=== PATIENT | female | born 1940 | race Caucasian/White ===

== ENCOUNTER → 2019-11-25 10:04 | Outpatient (BNVA) | payer MEDICARE, MEDICAID, SELFPAY | PROVIDERS: Visit Provider Registered Nurse | DX: I10 Essential (primary) hypertension (principal); E11.9 Type 2 diabetes mellitus without complications; H81.10 Benign paroxysmal vertigo, unspecified ear; E78.5 Hyperlipidemia, unspecified; H81.11 Benign paroxysmal vertigo, right ear | CPT/HCPCS: 80053; 80061; 83036; 85025 ==

== ENCOUNTER → 2020-05-25 10:36 | Outpatient (BNVA) | payer MEDICARE, MEDICAID, SELFPAY | PROVIDERS: Visit Provider Registered Nurse | DX: E11.9 Type 2 diabetes mellitus without complications (principal); I10 Essential (primary) hypertension; J30.2 Other seasonal allergic rhinitis | CPT/HCPCS: 80053; 83036 ==

== ENCOUNTER → 2020-09-05 10:15 | Outpatient (BNVA) | payer MEDICARE, MEDICAID, SELFPAY | PROVIDERS: Visit Provider Registered Nurse | DX: E11.9 Type 2 diabetes mellitus without complications (principal); I10 Essential (primary) hypertension | CPT/HCPCS: 80053; 83036 ==

== ENCOUNTER → 2020-12-05 10:30 | Outpatient (BNVA) | payer MEDICARE, SELFPAY | PROVIDERS: Visit Provider Registered Nurse | DX: E11.9 Type 2 diabetes mellitus without complications (principal); I10 Essential (primary) hypertension | CPT/HCPCS: 80053; 83036 ==

== ENCOUNTER → 2021-03-13 11:19 | Outpatient (BNVA) | payer MEDICARE, SELFPAY | PROVIDERS: Visit Provider Registered Nurse | DX: I10 Essential (primary) hypertension (principal); E11.9 Type 2 diabetes mellitus without complications; E78.5 Hyperlipidemia, unspecified | CPT/HCPCS: 83036 ==

== ENCOUNTER → 2022-02-26 11:01 | Outpatient (BNVA) | payer MEDICARE, SELFPAY | PROVIDERS: PCP Registered Nurse; Visit Provider Registered Nurse | DX: I10 Essential (primary) hypertension (principal); E11.9 Type 2 diabetes mellitus without complications; R46.89 Other symptoms and signs involving appearance and behavior | CPT/HCPCS: 80053; 80061; 83036; 85025 ==

== ENCOUNTER → 2022-08-27 11:14 | Outpatient (BNVA) | payer MEDICARE, SELFPAY | PROVIDERS: PCP Registered Nurse; Visit Provider Registered Nurse | DX: E11.9 Type 2 diabetes mellitus without complications (principal); I10 Essential (primary) hypertension | CPT/HCPCS: 80053; 83036 ==

== ENCOUNTER 2023-08-22 12:15 | Inpatient (IN) | payer MEDICARE, MEDICAID, SELFPAY ==
[2023-08-22] VITALS (62 sets, daily range): BP systolic 77–160; BP diastolic 54–74; PULSE 96–157; RESP 14–27; TEMP 37.4–37.9; O2SAT 86–99; BMI 15.9
--- NOTE | 2023-08-22 12:24 | XRR_ITS ---
PROCEDURE INFORMATION: Exam: XR Chest Exam date and time: 08/22/2023 1:31 PM Age: 82 years old Clinical indication: Cough and dyspnea; Additional info: Dyspnea/cough TECHNIQUE: Imaging protocol: Radiologic exam of the chest. Views: 1 view. COMPARISON: No relevant prior studies available. FINDINGS: Tubes, catheters and devices: Endotracheal tube approximately 5 cm above the juan. Enteric tube courses below the diaphragm in the expected region of the mid gastric body. Right-sided central line tip projects over the distal SVC/cavoatrial junction. Lungs: 6 mm irregular left basilar nodular opacity. No focal consolidation elsewhere in the lungs. Pleural spaces: No pleural effusion. No pneumothorax. Heart/Mediastinum: No cardiomegaly. Bones/joints: No acute findings. XR/XR chest 1V portable [id number] IMPRESSION: 6 mm irregular left lower lobe nodule. Nonemergent CT recommended for further characterization. No focal consolidation otherwise.
--- NOTE | 2023-08-22 12:24 | CT_ITS ---
WS: [id number] CT HEAD TECHNIQUE: Noncontrast CT of the head obtained from the skullbase to the vertex. CLINICAL INFORMATION: AMS COMPARISON: None. DLP: 1035.[address] scans at [facility] use at least one of these dose optimization techniques: automated e xposure control; mA and/or kV adjustment per patient size (includes targeted exams where dose is matc hed to clinical indication); or iterative reconstruction. FINDINGS: No evidence of intracranial hemorrhage or mass effect. Ventricular system and basal cisterns are aleman nt. Moderate small vessel changes with moderate parenchymal volume loss. No extra-axial fluid collect ions. No evidence of mass or mass effect. Intracranial vascular calcification. Mucosal thickening in the ethmoid air cells. Trace mucosal thickening in the mastoid tips. IMPRESSION: 1. No evidence of intracranial hemorrhage or mass effect. 2. Moderate small vessel changes. Moderate parenchymal volume loss. 3. No acute intracranial findings.
--- NOTE | 2023-08-22 12:25 | CT_ITS ---
WS: [id number] CTA CHEST WITH ABDOMEN AND PELVIS TECHNIQUE: Contrast enhanced CTA of the chest followed by abdomen, and pelvis with coronal and sagitt al reformatted images and additional MIP Images. CLINICAL INFORMATION: Hypoxia abdominal pain COMPARISON: None. DLP: 596.[address] scans at [facility] use at least one of these dose optimization techniques: automated e xposure control; mA and/or kV adjustment per patient size (includes targeted exams where dose is matc hed to clinical indication); or iterative reconstruction. FINDINGS: Proximal main pulmonary arteries are normal. Normal segmental and subsegmental pulmonary arteries. No evidence of pulmonary embolus. Aortic calcification. Endotracheal tube with tip above the juan. No mediastinal or hilar lymphadenopathy. Complete collapse of the LEFT lower lobe with consolidation. Volume loss LEFT lung. Mild RIGHT to LEF T mediastinal shift. Obstruction of the LEFT lower lobe bronchi. Few air bronchograms. Neoplasm shoul d be excluded. Moderate chronic emphysematous changes. RIGHT basilar atelectasis. Calcified nodularity posterior to the nipple LEFT breast. This can be followed up with LEFT breast di agnostic mammography. No prior comparisons. Diffuse fatty filtration of the liver. Normal portal vein and splenic vein. Enteric tube with tip in the stomach. Normal visualized pancreas. Adrenal glands are normal. No hydronephrosis in either kidne y. Normal renal parenchymal enhancement. Normal caliber abdominal aorta. Aortic calcification. Valenzuela catheter in the bladder. Transverse colon is decompressed. Mild surrounding induration. Recomme nd correlation for colitis. Tiny fat-containing umbilical hernia. No free fluid in the abdomen or pel vis. Incidental tiny dissection flap or ulcerated plaque in the proximal RIGHT common iliac artery wh ich remains patent. IMPRESSION: 1. No evidence of pulmonary embolus. 2. Complete collapse of the LEFT lower lobe with obstruction of the LEFT lower lobe bronchi with flu id and secretions. Volume loss LEFT lung. Obstructing neoplasm should be excluded. 3. No mediastinal or hilar lymphadenopathy. 4. No adenopathy in the abdomen or pelvis. 5. Decompressed transverse colon with suspected colitis with surrounding induration. 6. Valenzuela catheter.
[2023-08-22] MEDS: vecuronium 10 mg SDV IVP (12:30)
[2023-08-22] MEDS: etomidate 2 mg/mL INJ SDV 10 mL 20 MG IVP (12:30)
[2023-08-22] MEDS: sodium chloride 0.9% 1,000 ML 999 ML IV (12:35)
[2023-08-22 12:57] LABS: ABG PCO2 24.7 mmHg (35-45); ABG PH Result 7.38 (7.35-7.45); Alveolar-Arterial Oxygen Gradi 75.7 mmHg (5-10); Arterial Blood Gas Hematocrit 46.5 % (37-47); Base Excess ABG -8.3 mmol/L (-2.0-2.0); Blood Gas Allen Test Pos; Blood Gas Operator Identificat CAK; Blood Gas Sample Site Brachial, left; Blood Gas Sample Type Arterial; Carboxyhemoglobin 0.4 %THgb (0.4-20.1); HCO3 ABG 14.7 mmol/L (22-26); Ionized Calcium Level - ABG 1.1 mmol/L (1.1-1.4); Methemoglobin 0.7 % (0.4-1.5); Oxygen Device VENT; Oxygen Saturation ABG 96.1; PO2 ABG 89.9 mmHg (80.0-100.0); PO2 FiO2 Ratio Arterial Blood 0; Potassium Level - ABG 2.4 mmol/L (3.5-5.0); Total Hemoglobin 15.2 g/dL (12-16)
--- NOTE | 2023-08-22 13:05 | ECG_ITS ---
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 Measurements Intervals [place] Rate: 155 P: 0 VA: 0 QRS: 54 QRSD: 76 T: 229 QT: 278 QTc: 448 Interpretive Statements ATRIAL FIBRILLATION WITH RAPID VENTRICULAR RESPONSE ST DEVIATION AND MODERATE T-WAVE ABNORMALITY, CONSIDER ANTEROLATERAL ISCHEMIA [-0.1+ mV T-WAVE IN V3-V6] ST DEVIATION AND MODERATE T-WAVE ABNORMALITY, CONSIDER INFERIOR ISCHEMIA [-0.1+ mV T-WAVE IN II/aVF] CRITICAL TEST RESULT No previous ECG available for comparison Electronically Signed On 08-23-2023 6:02:26 MOSS PICKER by Radha Hogan M.D. [id number]
[2023-08-22 13:19] LABS: Basophils % 0.2 %; Hematocrit 44.6 % (36-47); Lymphocytes # 0.5 10^3/uL (0.8-4.8); Lymphocytes % 4.2 %; Mean Corpuscular HGB Conc 32.3 g/dL (30-55); Mean Corpuscular Hemoglobin 31.9 pg (27-33); Mean Corpuscular Volume 98.7 fl (85-98); Mean Platelet Volume 12.1 fL (7.4-10.4); Monocytes # 0.5 10^3/uL (0.2-0.9); Neutrophils # 11.13 10^3/uL (1.8-7.7); Neutrophils % 90.6 %; Nucleated Red Blood Cells % 0.3 %; Platelet Count 130 10^3/cmm (157-399); Red Blood Count 4.52 10^6/uL (3.85-5.65); Red Cell Distribution Width 15.5 % (12.1-15.1); White Blood Count 12.29 10^3/uL (3.29-11.43)
[2023-08-22 13:22] LABS: Blood Urine Neg (Negative); Glucose Urine UA Norm (Normal); Ketones Urine Negative (Negative); Protein Urine Trace (Negative); Urine Appearance Cloudy (CLEAR); Urine Color Dark Yellow (Yellow); pH Urine 5 (5-7)
[2023-08-22 13:23] LABS: Add Urine Microscopic? YES; Bacteria Urine 1+ /hpf; Bilirubin Urine 1+ (Negative); Leukocyte Esterase Urine Negative (Negative); Nitrate Urine Negative (Negative); RBC Urine 0-4 /hpf (0-2); Squamous Epithelial Cell Urine 0-4 /hpf (0-5); Urobilinogen Urine 1 mg/dL (Negative); WBC Urine 0-4 /hpf (0-5)
[2023-08-22] MEDS: dilTIAZem 5 mg/mL SDV 5 mL 10 MG IVP (13:33)
[2023-08-22] MEDS: dilTIAZem 100 MG in sodium chloride 0.9% (add-van) 100 ML IV (13:34)
[2023-08-22] MEDS: fentaNYL 1,000 MCG/100 ML BAG 2.5 MCG IV (13:35)
[2023-08-22 13:36] LABS: Slide Review Slide Review Perform
[2023-08-22] MEDS: midazolam hcl 100 MG/100 ML BAG IV (13:36)
[2023-08-22] MEDS: norepinephrine 4 MG/250 ML BAG 15 MG IV (13:36)
[2023-08-22] MEDS: dexamethasone 10 mg/mL INJ 6 MG IVP (13:38)
[2023-08-22] MEDS: diphenhydrAMINE 50 mg/mL SDV 1mL IVP (13:38)
[2023-08-22 13:42] LABS: Alanine Aminotransferase 27 U/L (0-33); Albumin Level 2.8 g/dL (3.5-5.2); Alkaline Phosphatase 57 U/L (35-105); Aspartate Amino Transferase 86 U/L (0-32); Blood Urea Nitrogen 60 mg/dL (8-23); Calcium 8.6 mg/dL (8.5-10.5); Carbon Dioxide 15 mmol/L (22-29); Chloride 108 mmol/L (98-107); Creatine Phosphokinase 240 U/L (26-192); Globulin 2.3 g/dL (1.3-4.6); Glucose 370 mg/dL (65-115); Lipase 76 U/L (13-60); Magnesium 2.6 mg/dL (1.7-2.3); Osmolality Calculated 354 mOsm/kg (285-295); Sodium 156 mmol/L (136-145); Total Bilirubin 0.7 mg/dL (0.15-1.2); Total Protein 5.1 g/dL (6.6-8.7)
[2023-08-22 13:43] LABS: Anion Gap 35.6 (5-19); Lactic Sepsis W/Reflex 12.6 mmol/L (0.5-2.2); Potassium 2.6 mmol/L (3.5-5.1); Troponin(5th) Baseline 479 ng/L (0-10)
[2023-08-22 13:45] LABS: NT Pro B Type Natriuretic Pept 12073 pg/mL (0-450)
[2023-08-22] MEDS: iohexol 350 mg/mL 500 mL Btl (per mL) IV (14:09)
--- NOTE | 2023-08-22 14:14 | ED_ITS ---
HPI - Weakness 2 General: Chief complaint: Weakness Stated complaint: unresponsive Time Seen by Provider: 08/22/23 12:23 Source: EMS Mode of arrival: EMS History of Present Illness: 82-year-old female presents emergency ro om Via EMS she is in acute respiratory distress nonresponsive on arrival hypotensive and tachycardic. No family present. She does have a temp. No other history given. No IV access on arrival Review of Systems 2 General: Reports: ROS unobtainable due to medical condition and ROS unobtainable due to mental status PFSH ED 2 PFSH: Medical History History of cataract Essential (primary) hypertension Surgical History History of hysterectomy Family History Other Breast cancer Social History Smoking and tobacco/nicotine status: never used tobacco/nicotine Alcohol intake: never Substance/Drug Use: never Adopted: No Caregiver/support person: Yes Lives independently: No Household members: significant other Marital status: / Current occupational status: retired Do you think of yourself as: Straight/Heterosexual Current gender identity: Female Physical Exam 2 HENMT: COMMON NORMALS: normocephalic, atraumatic and hearing grossly normal bilaterally HEAD & SCALP: normocephalic and atraumatic Resp: EFFORT & INSPECTION: Yes tachypneic, Yes respiratory distress and Yes decreased respiratory effort AUSCULTATION: diminished lung sounds Cardio: RATE: tachycardic RHYTHM: abnormal rhythm irregularly irregular GI: COMMON NORMALS: Soft to palpation and No hepatosplenomegaly present A USCULTATION: Yes normoactive bowel sounds PALPATION: Yes Soft to palpation, No Tenderness to palpation present (GI), No Guarding due to palpation present (GI) and Yes No hepatosplenomegaly present Extremity: COMMON NORMALS: normal to inspection, capillary refill normal, no clubbing, cyanosis or edema, no calf tenderness and no pedal edema Skin: COMMON NORMALS: no rashes or lesions noted GENERAL SKIN EXAM: no rashes or lesions noted Procedures Central Line Placement Right SC: Time Out Performed: Yes Patient Placed on Monitor/Pulse Ox: Yes MD Prep: mask, gown and gloves Central Line Prep: Chlorhexidine scrub Ultrasound Used for Placement: Yes Central Line Lumen Inserted: triple Post Procedure: sutured in place, good blood return, all ports aspirated, flushed, capped and sterile dressing applied Post Procedure X-Ray: tip of catheter in good position and no pneumothorax seen Patient Tolerated Procedure: well Complications: none Intubation Time out performed: Yes sedative: Etomidate Mg Given: 20 paralytic: Vecuronium Mg Given: 10 Laryngoscope: fiber optic video scope Assist Device Used: fiber optic device ET Tube Size: 8 ET Tube Uncuffed: No Tube Secured Depth (cm): 20 Tube Placement Confirmation: visualized tube passing through cords, equal breath sounds bilaterally, no breath sounds over epigastrium and confirmation by capnometry Patient Tolerated Procedure: well Intubation Complications: none Course 2 Vital Signs: Vital signs: Vital Signs Temperature 96.9 F L 08/29/23 02:00 Pulse Rate 125 H 08/29/23 13:00 Respiratory Rate 18 08/29/23 11:00 Blood Pressure 125/99 08/29/23 13:00 Pulse Oximetry 91 08/29/23 12:00 Oxygen Delivery Me thod Nasal Cannula, Me chanical Ventilati on 08/28/23 17:00 Oxygen Flow Rate 15 08/22/23 12:15 Fraction of Inspir ed Oxygen 35 08/29/23 08:41 MDM - Weakness Medical Decision Making Critical patient with multiple ongoing issues including obstructive pneumonia sepsis acute kidney injury acute hypoxic respiratory failure suspected underlying cancer poorly controlled diabetes hyperkalemia hyponatremia. Discussed with hospitalist will admit Dr. Traylor is also been consulted. Medical Records I reviewed the patient's medical records. Lab Data I reviewed the patient's lab results. 08/29/23 05:20 08/29/23 05:20 Radiology Impressions Chest X-Ray 08/26/23 09:20 IMPRESSION: Decreased left basilar atelectasis and/or pneumonitis. Head CT 08/26/23 18:28 IMPRESSION: 1. No acute intracranial hemorrhage, mass effect or midline shift. 2. Involutional changes of the brain in keeping with the patient's age, with findings of chronic microvascular ischemic disease. Laboratory Results WBC 12.29 10^3/uL (3.29-11.43) H 08/22/23 12:52 RBC 4.52 10^6/uL (3.85-5.65) 08/22/23 12:52 Hgb 14.40 g/dL (11.27-16.99) 08/22/23 12:52 Hct 44.6 % (36-47) 08/22/23 12:52 MCV 98.7 fl (85-98) H 08/22/23 12:52 MCH 31.9 pg (27-33) 08/22/23 12:52 MCHC 32.3 g/dL (30-55) 08/22/23 12:52 RDW 15.5 % (12.1-15.1) H 08/22/23 12:52 Plt Count 130 10^3/cmm (157-399) L 08/22/23 12:52 MPV 12.1 fL (7.4-10.4) H 08/22/23 12:52 Neut % (Auto) 90.6 % 08/22/23 12:52 Lymph % (Auto) 4.2 % 08/22/23 12:52 Lipscomb % (Auto) 4.0 % 08/22/23 12:52 Eos % (Auto) 0.0 % 08/22/23 12:52 Baso % (Auto) 0.2 % 08/22/23 12:52 Neut # (Auto) 11.13 10^3/uL (1.8-7.7) H 08/22/23 12:52 Lymph # (Auto) 0.5 10^3/uL (0.8-4.8) L 08/22/23 12:52 Lipscomb # (Auto) 0.5 10^3/uL (0.2-0.9) 08/22/23 12:52 Eos # (Auto) 0.0 10^3/uL (0.0-0.8) 08/22/23 12:52 Baso # (Auto) 0.0 10^3/uL (0.0-0.1) 08/22/23 12:52 Nucleated RBC % (auto) 0.3 % 08/22/23 12:52 Nucleated RBCs # 0.0 /100WBC 08/22/23 12:52 Specimen Type Arterial 08/22/23 14:53 Sample Site Brachial, left 08/22/23 14:53 ABG pH 7.37 (7.35-7.45) 08/22/23 14:53 ABG pCO2 27.0 mmHg (35-45) L 08/22/23 14:53 ABG pO2 69.9 mmHg (80.0-100.0) L 08/22/23 14:53 ABG PO2/FiO2 Ratio 0 08/22/23 14:53 ABG HCO3 15.6 mmol/L (22-26) L 08/22/23 14:53 ABG O2 Saturation 93.2 08/22/23 14:53 ABG Base Excess -8.0 mmol/L (-2.0-2.0) L 08/22/23 14:53 Cody Test Pos 08/22/23 14:53 A-a O2 Gradient 41.4 mmHg (5-10) H 08/22/23 14:53 Hematocrit 43.8 % (37-47) 08/22/23 14:53 Hgb O2 Saturation 91.3 % (95-100) L 08/22/23 14:53 Carboxyhemoglobin 1.0 %THgb (0.4-20.1) 08/22/23 14:53 Methemoglobin 1.0 % (0.4-1.5) 08/22/23 14:53 Total Hemoglobin 14.3 g/dL (12-16) 08/22/23 14:53 Sodium 156.0 mmol/L (131-143) H 08/22/23 14:53 Potassium 2.3 mmol/L (3.5-5.0) L 08/22/23 14:53 Glucose 322.0 mg/dL (70-115) H 08/22/23 14:53 Ionized Calcium 1.1 mmol/L (1.1-1.4) 08/22/23 14:53 O2 Delivery Device Vent 08/22/23 14:53 FiO2 60.0 % 08/22/23 14:53 Tidal Volume 0.35 08/22/23 14:53 PEEP 5.0 cmH20 08/22/23 14:53 Oil Analyst ID Cak 08/22/23 14:53 Sodium 156 mmol/L (136-145) H 08/22/23 12:52 Potassium 2.6 mmol/L (3.5-5.1) L* 08/22/23 12:52 Chloride 108 mmol/L (98-107) H 08/22/23 12:52 Carbon Dioxide 15 mmol/L (22-29) L 08/22/23 12:52 Anion Gap 35.6 (5-19) H 08/22/23 12:52 BUN 60 mg/dL (8-23) H 08/22/23 12:52 Creatinine 3.4 mg/dL (0.5-0.9) H 08/22/23 12:52 GFR Calculation Not Reportable 08/22/23 12:52 Glucose 370 mg/dL (65-115) H 08/22/23 12:52 Calculated Osmolality 354 mOsm/kg (285-295) H 08/22/23 12:52 Lactic Acid 12.6 mmol/L (0.5-2.2) H* 08/22/23 12:52 Calcium 8.6 mg/dL (8.5-10.5) 08/22/23 12:52 Magnesium 2.6 mg/dL (1.7-2.3) H 08/22/23 12:52 Total Bilirubin 0.7 mg/dL (0.15-1.2) 08/22/23 12:52 AST 86 U/L (0-32) H 08/22/23 12:52 ALT 27 U/L (0-33) 08/22/23 12:52 Alkaline Phosphatase 57 U/L (35-105) 08/22/23 12:52 Creatine Kinase 240 U/L (26-192) H 08/22/23 12:52 Troponin T Baseline 479 ng/L (0-10) H* 08/22/23 12:52 Troponin T 120 Minute 437.6 ng/L (0-10) H 08/22/23 15:17 Delta Troponin T -41.4 ABS# (0-10) L 08/22/23 15:17 NT-Pro-B Natriuret Pep 73199 pg/mL (0-450) H 08/22/23 12:52 Total Protein 5.1 g/dL (6.6-8.7) L 08/22/23 12:52 Albumin 2.8 g/dL (3.5-5.2) L 08/22/23 12:52 Globulin 2.3 g/dL (1.3-4.6) 08/22/23 12:52 Lipase 76 U/L (13-60) H 08/22/23 12:52 Urine Color Dark yellow (Yellow) 08/22/23 13:05 Urine Appearance Cloudy (CLEAR) A 08/22/23 13:05 Urine pH 5 (5-7) 08/22/23 13:05 Ur Specific [place] 1.020 (1.005-1.030) 08/22/23 13:05 Urine Protein Trace (Negative) 08/22/23 13:05 Urine Glucose (UA) Norm (Normal) 08/22/23 13:05 Urine Ketones Negative (Negative) 08/22/23 13:05 Urine Blood Neg (Negative) 08/22/23 13:05 Urine Nitrate Negative (Negative) 08/22/23 13:05 Urine Bilirubin 1+ (Negative) H 08/22/23 13:05 Urine Urobilinogen 1 mg/dL (Negative) H 08/22/23 13:05 Ur Leukocyte Esterase Negative (Negative) 08/22/23 13:05 Urine RBC 0-4 /hpf (0-2) H 08/22/23 13:05 Urine WBC 0-4 /hpf (0-5) H 08/22/23 13:05 Ur Squamous Epith Cells 0-4 /hpf (0-5) H 08/22/23 13:05 Amorphous Sediment Not Reportable 08/22/23 13:05 Urine Bacteria 1+ /hpf (NONE) H 08/22/23 13:05 Hyaline Casts 10-15 /lpf H 08/22/23 13:05 Influenza Type A Ag negative (Negative) 08/22/23 13:44 Influenza Type B Ag negative (Negative) 08/22/23 13:44 All radiology interpretation(s) finalized by discharge Critical Care Time 2 Critical Care Time: Critical Care Time: Yes Total Critical Care Time: 60 Attestation: The high probability of a clinically significant, sudden or life threatening deterioration of the patient's cardiovascular respiratory renal GI bleed system(s) required my full and direct attention, intervention and personal management. The critical care time is as shown. This time is in addition to time spent performing any reported procedures but includes the following: [x] Data and vital sign review and interpretation [x] Patient assessment, examination and intervention [x] Documentation [x] Medication orders and management Discharge Plan Discharge Patient Disposition: Admitted As Inpatient Admit Provider: Kenton Cool Clinical Impression: Septic shock, Acute hypoxic respiratory failure, Uncontrolled diabetes mellitus, Hypoxic encephalopathy, NSTEMI (non-ST elevated myocardial infarction), Lactic acidosis, Acute renal failure, Hypernatremia, Atrial fibrillation with RVR, Metabolic acidosis, Aspiration pneumonia, Protein calorie malnutrition, Hypokalemia Condition: Stable Coding Level of Care Code ED [place] Utility Worker for Katya George
--- NOTE | 2023-08-22 14:24 | ECG_ITS ---
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 Measurements Intervals [place] Rate: 116 P: 0 WI: 0 QRS: 53 QRSD: 88 T: 237 QT: 305 QTc: 425 Interpretive Statements ATRIAL FIBRILLATION WITH RVR ST DEVIATION AND T WAVE ABNORMALITY, CONSIDER ANTEROLATERAL AND INFERIOR ISCHEMIA Compared to ECG 08/22/2023 13:05:38 Atrial flutter no longer present Electronically Signed On 08-24-2023 21:38:19 FIRE INVESTIGATION MANAGER by Radha Hogan M.D. [id number]
[2023-08-22 14:34] LABS: Influenza A by IFA negative (Negative); Influenza B by IFA negative (Negative)
[2023-08-22 14:48] LABS: Reflex Lactate Order REFLEX LACTIC ORDERD
[2023-08-22] MEDS: potassium chloride premix 100 ML 25 MEQ IV ×2 (14:58→19:34)
[2023-08-22 15:04] LABS: ABG PH Result 7.37 (7.35-7.45); Alveolar-Arterial Oxygen Gradi 41.4 mmHg (5-10); Arterial Blood Gas Hematocrit 43.8 % (37-47); Blood Gas Allen Test Pos; Blood Gas Operator Identificat CAK; Blood Gas Sample Site Brachial, left; Blood Gas Sample Type Arterial; Blood Gas Tidal Volume 0.35; HCO3 ABG 15.6 mmol/L (22-26); HGB O2 Sat 91.3 % (95-100); Ionized Calcium Level - ABG 1.1 mmol/L (1.1-1.4); Oxygen Device VENT; Oxygen Saturation ABG 93.2; PO2 ABG 69.9 mmHg (80.0-100.0); PO2 FiO2 Ratio Arterial Blood 0; Potassium Level - ABG 2.3 mmol/L (3.5-5.0); Total Hemoglobin 14.3 g/dL (12-16)
[2023-08-22] MEDS: heparin 5,000 unit/mL INJ 1 mL 2800 UNIT IVP (15:23)
[2023-08-22] MEDS: heparin drip 25,000 UNIT/500 ML PREMIX 11 UNIT IV (15:25)
[2023-08-22] MEDS: meropenem 1,000 MG in sodium chloride 0.9% (plus) 50 ML 100 MG IV (15:26)
[2023-08-22 15:48] LABS: Troponin 5 2HR 437.6 ng/L (0-10)
[2023-08-22] MEDS: amiodarone 150 MG/100 ML PREMIX 400 MG IV ×2 (16:00→17:57)
--- NOTE | 2023-08-22 16:07 | P.CONIM_ITS ---
Providers/Reason For Consult 2 Consulting Physician/Specialty*: Iban Hodge MD FCCP/pulmonary critical care Reason for Consult*: Respiratory failure requiring intubation Requesting Physician: Dr. Garrido Attending Physician: Kenton Malcolm MD Primary Care Provider: SHARMAINE Esparza History of Present Illness History of Present Illness Sonia Baca is a 82 year old female with past medical history of type 2 diabetes not on medications, history of A-fib on Eliquis, presented to [facility] for unresponsiveness. As per patient's son-patient started having severe nausea and vomiting for 3 weeks. He reported patient consumes a lot of ice cream- there is a suspicion that it may be contaminated with Listeria. She was seen 2 weeks ago in an emergency room at [facility] and was diagnosed A-fib with RVR placed on Eliquis and metoprolol and sent home. I reviewed the records from [facility]-she was admitted on 08/03/2023 for history of vomiting after ingesting recalled ice cream from [facility]. No other systemic symptoms. Abdominal exam is benign. Labs revealed hypokalemia. She received IV fluids, potassium supplementation, Zofran. She improved clinically and was discharged to home. Then again on 08/08/2023 she was readmitted to [facility] for continued nausea, vomiting, diarrhea. She was diagnosed with A-fib RVR started on Cardizem and Eliquis. Her heart rate improved and she was discharged to home with recommendation to start a hypoglycemic agent as outpatient. She had a CT chest abdomen pelvis-which showed mild tubular bronchiectasis as well as areas of atelectasis. Small sliding hiatal hernia. No other acute changes. With fluid repletion-her WBC came down from 14,000- 11,000; anion gap down from 22-14. Son reported that at baseline, she at is normally alert and awake, can follow commands, she normally can help take care of herself. Today son found that his mother was slumped over in her chair, unresponsive and called EMS. On arrival to ER she was altered mental status, hypotensive and tachycardic, there were no family members present, so she was intubated for airway protection. Her CT chest showed no evidence of pulmonary embolism, complete collapse of left lower lobe with obstruction of left lower lobe bronchi with fluid and secretions and volume loss of left lung. ER physician Dr. Garrido consulted pulmonary critical care for possible bronchoscopic evaluation as well as patient being added to ICU for respiratory failure and septic shock. Currently she is critically ill, status is stable, prognosis is guarded. Goals of care with patient's son no further aggressive measures like chest compressions. So she is DNR/DNI he does not want to have overly aggressive interventions. he is okay with the interventions that were doing for her now. But he would not want her to be on life-sustaining measures for a prolonged period of time if it came to that point. I have seen patient at bedside currently she is intubated-on CMV-60% FiO2; He is sedated with fentanyl and Versed She is requiring Levophed 6 mcg for hypotension She is on amiodarone drip for atrial fibrillation with RVR She is on heparin drip for suspected NSTEMI due to elevated troponins Lab work revealed A1c 11, glucose greater than 300, increased anion gap, sodium 156, potassium 2.6, lactic acidosis-consistent with DKA related dehydration ; currently she is getting IV fluids with potassium supplementation Review of Systems 2 General: Reports: ROS unobtainable due to endotracheal tube, ROS unobtainable due to medical condition and ROS unobtainable due to mental status Medications/Allergies Home Medications Medication Instructions Recorded Confirmed Last Taken Type niacin 500 mg tablet 500 mg PO DAILY 11/25/19 08/22/23 Unknown History omeprazole magnesium 20 mg 20 mg PO DAILY 11/25/19 08/22/23 Unknown History tablet,delayed release (Prilosec OTC) losartan 25 mg tablet 25 mg PO DAILY 90 days #90 tabs 05/14/23 08/22/23 Unknown Rx apixaban 5 mg tablet (Eliquis) 2.5 mg PO BID 08/22/23 08/22/23 Unknown History hydrochlorothiazide 12.5 mg capsule 12.5 mg PO DAILY 08/22/23 08/22/23 Unknown History metoprolol tartrate 100 mg tablet 200 mg PO BID 08/22/23 08/22/23 Unknown History simvastatin 40 mg tablet 40 mg PO DAILY 08/22/23 08/22/23 Unknown History Allergies Allergy/AdvReac Type Severity Reaction Status Date / Time iodine Allergy Unknown Verified 08/22/23 12:20 nifedipine Allergy Unknown Verified 08/22/23 12:20 Penicillins Allergy Unknown Verified 08/22/23 12:20 Current Medications Generic Name Dose Route Start Last Admin Trade Name Freq PRN Reason Stop Dose Admin Fentanyl 1,000 mcg in 100 mls @ 0 mls/hr 08/22/23 12:30 08/22/23 13:35 Sublimaze IV 25 mcg/hr .Q0M FREDDY 2.5 mls/hr Administration Protocol Per Protocol Midazolam HCl 100 mg in 100 mls @ 0 mls/hr 08/22/23 12:30 08/22/23 13:36 Versed IV 2 mg/hr .Q0M FREDDY 2 mls/hr Administration Protocol Per Protocol norepinephrine 4 mg in 250 mls @ 0 mls/hr 08/22/23 12:30 08/22/23 13:36 Levophed IV 4 mcg/min .Q0M FREDDY 15 mls/hr Administration Protocol Per Protocol Diltiazem HCl 100 mg/ Sodium 100 mls @ 0 mls/hr 08/22/23 13:30 08/22/23 14:55 Chloride IV 10 mg/hr .Q0M FREDDY 10 mls/hr Titration Protocol Per Protocol Potassium Chloride 100 mls @ 25 mls/hr 08/22/23 14:15 08/22/23 14:58 K-Mike IV 08/22/23 22:14 25 mls/hr Q4H FREDDY Administration Heparin Sodium/Sodium Chloride 25,000 unit in 500 mls @ 0 mls/hr 08/22/23 14:15 08/22/23 15:25 Heparin Drip IV 13.94 unit/kg/hr .Q0M FREDDY 11 mls/hr Administration Protocol Per Protocol PFSH Acute 2 PFSH: Medical History History of cataract Essential (primary) hypertension Surgical History History of hysterectomy Family History Other Breast cancer Social History Smoking and tobacco/nicotine status: never used tobacco/nicotine Alcohol intake: never Substance/Drug Use: never Adopted: No Caregiver/support person: Yes Lives independently: No Household members: significant other Marital status: / Current occupational status: retired Do you think of yourself as: Straight/Heterosexual Current gender identity: Female Vitals/I&O/Wt Last Vital Signs Temp 100.3 F H 08/22/23 12:15 Pulse 136 H 08/22/23 15:25 Resp 14 08/22/23 15:25 BP 134/72 08/22/23 15:25 Pulse Ox 92 08/22/23 15:25 O2 Del Method Mechanical Ventilation 08/22/23 13:22 O2 Flow Rate 15 08/22/23 12:15 FiO2 60 08/22/23 14:20 08/22/23 08/22/23 08/22/23 06:59 14:59 22:59 Intake Total 9.042 / 9.042 Balance 9.042 / 9.042 Weight last 48 hrs Weight 87 lb Physical Exam 2 Narrative: PHYSICAL EXAM: General: lying in bed, sedated and intubated. HEENT:NCAT, PERRLA, EOMI Neck: Supple Lungs: Reduced breath sounds left lower lung zone Heart: s1/s2, RRR Abd: soft, NT, ND, BS + Normoactive Extremities: No edema BLOCK MECHANIC: sedated and limited BLOCK MECHANIC exam possible. SKIN: no rash LDA: # CVC: Right subclavian 08/22/2020; right femoral line 08/22/2023 # Valenzuela: 08/22/2023 Data 08/22/23 12:52 08/22/23 12:52 Other Labs: Radiology Impressions Chest X-Ray 08/22/23 12:24 IMPRESSION: 6 mm irregular left lower lobe nodule. Nonemergent CT recommended for further characterization. No focal consolidation otherwise. Laboratory Results WBC 12.29 10^3/uL (3.29-11.43) H 08/22/23 12:52 RBC 4.52 10^6/uL (3.85-5.65) 08/22/23 12:52 Hgb 14.40 g/dL (11.27-16.99) 08/22/23 12:52 Hct 44.6 % (36-47) 08/22/23 12:52 MCV 98.7 fl (85-98) H 08/22/23 12:52 MCH 31.9 pg (27-33) 08/22/23 12:52 MCHC 32.3 g/dL (30-55) 08/22/23 12:52 RDW 15.5 % (12.1-15.1) H 08/22/23 12:52 Plt Count 130 10^3/cmm (157-399) L 08/22/23 12:52 MPV 12.1 fL (7.4-10.4) H 08/22/23 12:52 Neut % (Auto) 90.6 % 08/22/23 12:52 Lymph % (Auto) 4.2 % 08/22/23 12:52 [place] % (Auto) 4.0 % 08/22/23 12:52 Eos % (Auto) 0.0 % 08/22/23 12:52 Baso % (Auto) 0.2 % 08/22/23 12:52 Neut # (Auto) 11.13 10^3/uL (1.8-7.7) H 08/22/23 12:52 Lymph # (Auto) 0.5 10^3/uL (0.8-4.8) L 08/22/23 12:52 [place] # (Auto) 0.5 10^3/uL (0.2-0.9) 08/22/23 12:52 Eos # (Auto) 0.0 10^3/uL (0.0-0.8) 08/22/23 12:52 Baso # (Auto) 0.0 10^3/uL (0.0-0.1) 08/22/23 12:52 Nucleated RBC % (auto) 0.3 % 08/22/23 12:52 Nucleated RBCs # 0.0 /100WBC 08/22/23 12:52 Specimen Type Arterial 08/22/23 14:53 Sample Site Brachial, left 08/22/23 14:53 ABG pH 7.37 (7.35-7.45) 08/22/23 14:53 ABG pCO2 27.0 mmHg (35-45) L 08/22/23 14:53 ABG pO2 69.9 mmHg (80.0-100.0) L 08/22/23 14:53 ABG PO2/FiO2 Ratio 0 08/22/23 14:53 ABG HCO3 15.6 mmol/L (22-26) L 08/22/23 14:53 ABG O2 Saturation 93.2 08/22/23 14:53 ABG Base Excess -8.0 mmol/L (-2.0-2.0) L 08/22/23 14:53 [place] Test Pos 08/22/23 14:53 A-a O2 Gradient 41.4 mmHg (5-10) H 08/22/23 14:53 Hematocrit 43.8 % (37-47) 08/22/23 14:53 Hgb O2 Saturation 91.3 % (95-100) L 08/22/23 14:53 Carboxyhemoglobin 1.0 %THgb (0.4-20.1) 08/22/23 14:53 Methemoglobin 1.0 % (0.4-1.5) 08/22/23 14:53 Total Hemoglobin 14.3 g/dL (12-16) 08/22/23 14:53 Sodium 156.0 mmol/L (131-143) H 08/22/23 14:53 Potassium 2.3 mmol/L (3.5-5.0) L 08/22/23 14:53 Glucose 322.0 mg/dL (70-115) H 08/22/23 14:53 Ionized Calcium 1.1 mmol/L (1.1-1.4) 08/22/23 14:53 O2 Delivery Device Vent 08/22/23 14:53 FiO2 60.0 % 08/22/23 14:53 Tidal Volume 0.35 08/22/23 14:53 PEEP 5.0 cmH20 08/22/23 14:53 Project Surveyor ID Cak 08/22/23 14:53 Sodium 156 mmol/L (136-145) H 08/22/23 12:52 Potassium 2.6 mmol/L (3.5-5.1) L* 08/22/23 12:52 Chloride 108 mmol/L (98-107) H 08/22/23 12:52 Carbon Dioxide 15 mmol/L (22-29) L 08/22/23 12:52 Anion Gap 35.6 (5-19) H 08/22/23 12:52 BUN 60 mg/dL (8-23) H 08/22/23 12:52 Creatinine 3.4 mg/dL (0.5-0.9) H 08/22/23 12:52 GFR Calculation Not Reportable 08/22/23 12:52 Glucose 370 mg/dL (65-115) H 08/22/23 12:52 Calculated Osmolality 354 mOsm/kg (285-295) H 08/22/23 12:52 Lactic Acid 12.6 mmol/L (0.5-2.2) H* 08/22/23 12:52 Calcium 8.6 mg/dL (8.5-10.5) 08/22/23 12:52 Magnesium 2.6 mg/dL (1.7-2.3) H 08/22/23 12:52 Total Bilirubin 0.7 mg/dL (0.15-1.2) 08/22/23 12:52 AST 86 U/L (0-32) H 08/22/23 12:52 ALT 27 U/L (0-33) 08/22/23 12:52 Alkaline Phosphatase 57 U/L (35-105) 08/22/23 12:52 Creatine Kinase 240 U/L (26-192) H 08/22/23 12:52 Troponin T Baseline 479 ng/L (0-10) H* 08/22/23 12:52 Troponin T 120 Minute 437.6 ng/L (0-10) H 08/22/23 15:17 Delta Troponin T -41.4 ABS# (0-10) L 08/22/23 15:17 NT-Pro-B Natriuret Pep 63595 pg/mL (0-450) H 08/22/23 12:52 Total Protein 5.1 g/dL (6.6-8.7) L 08/22/23 12:52 Albumin 2.8 g/dL (3.5-5.2) L 08/22/23 12:52 Globulin 2.3 g/dL (1.3-4.6) 08/22/23 12:52 Lipase 76 U/L (13-60) H 08/22/23 12:52 Urine Color Dark yellow (Yellow) 08/22/23 13:05 Urine Appearance Cloudy (CLEAR) A 08/22/23 13:05 Urine pH 5 (5-7) 08/22/23 13:05 Ur Specific [place] 1.020 (1.005-1.030) 08/22/23 13:05 Urine Protein Trace (Negative) 08/22/23 13:05 Urine Glucose (UA) Norm (Normal) 08/22/23 13:05 Urine Ketones Negative (Negative) 08/22/23 13:05 Urine Blood Neg (Negative) 08/22/23 13:05 Urine Nitrate Negative (Negative) 08/22/23 13:05 Urine Bilirubin 1+ (Negative) H 08/22/23 13:05 Urine Urobilinogen 1 mg/dL (Negative) H 08/22/23 13:05 Ur Leukocyte Esterase Negative (Negative) 08/22/23 13:05 Urine RBC 0-4 /hpf (0-2) H 08/22/23 13:05 Urine WBC 0-4 /hpf (0-5) H 08/22/23 13:05 Ur Squamous Epith Cells 0-4 /hpf (0-5) H 08/22/23 13:05 Amorphous Sediment Not Reportable 08/22/23 13:05 Urine Bacteria 1+ /hpf (NONE) H 08/22/23 13:05 Hyaline Casts 10-15 /lpf H 08/22/23 13:05 Influenza Type A Ag negative (Negative) 08/22/23 13:44 Influenza Type B Ag negative (Negative) 08/22/23 13:44 Micro: Microbiology 08/22/23 12:52 Blood Culture - Preliminary Blood SPECIMEN COLLECTED 08/22/23 12:53 Blood Culture - Preliminary Blood SPECIMEN COLLECTED A&P Assessment and plan (1) Altered mental status: Qualifiers: Altered mental status type: unspecified Qualified Code(s): R41.82 - Altered mental status, unspecified (2) Acute hypoxic respiratory failure: (3) Septic shock: (4) Collapse of left lung: (5) Aspiration pneumonia: Qualifiers: Aspiration pneumonia type: due to vomit Laterality: left Lung location: lower lobe of lung Qualified Code(s): J69.0 - Pneumonitis due to inhalation of food and vomit (6) Diabetic ketoacidosis: Qualifiers: Diabetes mellitus type: type 2 Diabetes mellitus complication detail: w ith coma Qualified Code(s): E11.11 - Type 2 diabetes mellitus with ketoacidosis with coma (7) Hypernatremia: (8) Hypokalemia: (9) Acute renal failure: Qualifiers: Acute renal failure type: unspecified Qualified Code(s): N17.9 - Acute kidney failure, unspecified (10) NSTEMI (non-ST elevated myocardial infarction): (11) Lactic acidosis: (12) Uncontrolled diabetes mellitus: Qualifiers: Diabetes mellitus type: type 2 Glycemic state: with hyperglycemia Qualified Code(s): E11.65 - Type 2 diabetes mellitus with hyperglycemia Plan ASSESSMENT/PLAN:Overall: 82-year-old elderly lady with past medical history of diabetes noncompliant, A- fib with RVR-presented to ER being unresponsive likely secondary to DKA likely due to non compliant with treatments and aspiration pneumonia. Patient is also in hypovolemic/septic shock, hypernatremia. NEURO: # Altered mental status-secondary to DKA/sepsis/hypernatremia -Head CT 08/22/2023-no acute changes -Sedated with fentanyl and Versed -Treat underlying DKA/sepsis/hyponatremia PULM: # Acute respiratory failure-likely secondary to aspiration pneumonia -Intubated and sedated -Currently on CMV 350/PEEP 5/and FiO2 60%-ABG 7.3 04/17//15 -CT chest showed left lower lobe collapse likely secondary to fluid and secretions; review of her CT chest report from 08/09/2023 at [facility]-showed mild tubular bronchiectasis but did not show any lung collapse. So malignancy unlikely -# Patient covered with meropenem and vancomycin-she had penicillin allergy -We will defer bronchoscopy for now as patient is still in A-fib RVR CVS: # Shock-sepsis versus hypovolemic -Currently on Levophed 6 mg -She received total 3 L normal saline -Current recovered with antibiotics for suspected aspiration pneumonia -Monitor blood pressure, lactic acid -Target MAP > 65 -Significantly elevated BNP-will obtain echocardiogram # Troponinemia-likely secondary to demand ischemia -Initial troponin 478-2 hours later 437?troponin -41 -EKG no ST-T wave changes -We can discontinue heparin # A-fib with RVR -Patient is on amiodarone drip -will start her on Eliquis . GI: # Diet: N.p.o. for now # GI prophylaxis: PPI RENAL: # Anion gap acidosis -Likely due to lactic acidosis secondary to septic shock -Serum ketones are negative-this likely DKA -She received 3 L of IV fluids and currently on Levophed 6 mcg # GISELLA-likely secondary to prerenal-hypovolemia -Monitor renal functions closely -Patient is receiving IV fluids as well as pressor support to maintain MAP greater than 65 # Hypokalemia 2.6 -Currently receiving IV KCl supplementation -Monitor potassium every 4 hours-once potassium greater than 3.3-can start insulin infusion for DKA # Hypovolemic Hypernatremia -Sodium 156 -Free water deficit 2.1 L -Currently she is getting NS with potassium supplementation given her hypotension -Monitor sodium every 4 hours -Once volume is corrected switch to half-normal saline HEM: # DVT prophylaxis: Currently on heparin-will switch to Eliquis to cover for A- fib RVR ENDO: # Diabetes mellitus-patient not on medications # Serum ketones are negative-less likely DKA -start her on insulin scale coverage -Closely monitor electrolytes, glucose, anion gap ID: # Likely patient in septic shock secondary to aspiration pneumonia -She has been vomiting for last couple of weeks -CT chest 08/22/2023 showed left lower lobe atelectasis and consolidation likely secondary to aspirated material (CT chest report from [facility] 08/08/2023-did not show any abnormality -Hence less likely malignancy) -Blood cultures, sputum cultures-pending -Currently patient is on vancomycin and meropenem Code Status: DNR/DNI Disposition: ICU Critically ill:Yes MD discussed with: ED physician, hospitalist taking care of the patient, RN, RT ICU CHECKLIST: Problem list updated Verbal orders reviewed and signed Analgesia: Fentanyl Glycemic Control: Will put her on scale coverage Nutrition: N.p.o. for now Restraint Renewal (within 24 hrs): Yes Ulcer Prophylaxis: PPI Chemical Thromboprophylaxis: Prophylaxis:Heparin Mechanical Thromboprophylaxis: SCDs Need for Central line: Right subclavian Need for Valenzuela catheter: Yes Family updated: Yes Consult Attestations 2 Medical Necessity Statement: Patient with altered mental status, septic shock, A-fib RVR-need close ICU monitoring Time Spent in Patient Care: Greater than 35 minutes (>than 50% of time spent in counselling and/or direct pt care on unit) . Critical Care Time: The high probability of a clinically significant, sudden or life threatening deterioration of the patient's [Neurology, pulmonary, cardiac, renal, endocrine, infectious] system(s) required my full and direct attention, intervention and personal management. The critical care time is as shown. This time is in addition to time spent performing any reported procedures but includes the following: [x] Data and vital sign review and interpretation [x] Patient assessment, examination and intervention [x] Documentation [x] Medication orders and management Critical Care Time (min): 84 Coding Level of Care Code 75538 Diagnoses Altered mental status, unspecified altered mental status type R41.82 Altered mental status type: unspecified Acute hypoxic respiratory failure J96.01 Septic shock A41.9; R65.21 Collapse of left lung J98.11 Aspiration pneumonia of left lower lobe due to vomit J69.0 Aspiration pneumonia type: due to vomit Laterality: left Lung location: lower lobe of lung Diabetic ketoacidosis with coma associated with type 2 diabetes mellitus E11.11 Diabetes mellitus type: type 2 Diabetes mellitus complication detail: with coma Hypernatremia E87.0 Hypokalemia E87.6 Acute renal failure, unspecified acute renal failure type N17.9 Acute renal failure type: unspecified NSTEMI (non-ST elevated myocardial infarction) I21.4 Lactic acidosis E87.20 Uncontrolled type 2 diabetes mellitus with hyperglycemia E11.65 Diabetes mellitus type: type 2 Glycemic state: with hyperglycemia Time Spent (min) 85
--- NOTE | 2023-08-22 16:33 | PM.HP ---
Providers/Chief Complaint Admitting Physician: Kenton Cool MD Primary Care Provider: SHARMAINE Esparza Chief Complaint: unresponsive History of Present Illness Sonia Baca is a 82 year old female with a past medical history of type 2 diabetes mellitus, last A1c 11.3, not on any medications, history of atrial fibrillation on Eliquis, who presents to [facility] due to nonresponsiveness. Currently patient is intubated, sedated, on pressors, on Cardizem for A-fib with RVR, blood pressures are 110s over 80s, she is febrile temperature 100.3, heart rates are in the 150s on maximal Cardizem drip, she has fentanyl and Versed for sedation, she is intubated, she is on 60% FiO2, she is mottled up to the level of bilateral knees, BMI is 15.9, son is at bedside most of the history was obtained by son. Patient's son tells me that about 3 weeks ago, she started to have severe nausea vomiting and diarrhea. Patient according to son loves ice cream, and she was consuming ice cream from [employer] staff vanilla flavored ice cream according to patient's son, after eating the ice cream she typically consumes a lot of it, he tells me that she consumed 8 out of 9 tabs of ice cream, that they had purchased, she started having severe nausea, vomiting, diarrhea, feeling unwell according to patient's son they had received some call that the ice cream was recalled due to Listeria, so they became suspicious that the cause of her feeling unwell nausea, vomiting, diarrhea was from Listeria. 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 However she continued to have profuse nausea vomiting diarrhea, poor oral intake so she again she went to the emergency room about a week ago, she was diagnosed with what sounds like A-fib with RVR placed on Eliquis and metoprolol and sent home. I am still waiting on the records from [facility]. The patient's son tells me that her diarrhea did improve, her nausea did improve, she was able to consume a little bit more food, consume liquids. She at is normally alert and awake, can follow commands, she normally can help take care of herself. He tells me that yesterday, she did have a couple bites to eat, but continued to have fatigue, malaise. No known fevers or chills. No known cough. Throughout her diarrhea, she did have complaints of diffuse abdominal pain. She did have a near syncopal episode about a week ago but never actually passed out. Had complaints of lightheadedness and dizziness. No new rashes. Patient's son was out doing business, when he came back home, he found that his mother was slumped over in her chair, unresponsive, Upon arrival, patient was in acute respiratory distress, nonresponsive, hypotensive, tachycardic. Patient was intubated in the emergency room, central line placed, placed on Levophed, Cardizem, heparin, sedated, had a second central line placed no known history of CAD. She has had a TIA. No known kidney disease. No known liver disease. Patient's sons at bedside, I had a discussion with patient's son, currently she is on Cardizem for her atrial fibrillation heart rate still in the 150s we will switch her over to amiodarone. She is on the heparin drip because of her A-fib. She is currently intubated on 60% FiO2. She is on pressors, for Levophed. I am unsure of her mentation but she as she is on Versed and fentanyl. She is febrile. Review of her blood work shows a lactic acidosis. Acute renal failure. NSTEMI. Hypokalemia. Hyponatremia. Leukocytosis. CT of the chest shows complete collapse of left lower lobe with obstruction of the left lower bronchi with fluid and secretions. Does show decompressed transverse colon with suspected colitis with surrounding induration. I spoke to patient's son, currently patient is in multiorgan failure, acute renal failure, has NSTEMI, acute respiratory failure, she is in septic shock, severe lactic acidosis, severe acidemia, with complete collapse of the left lower lobe. Etiology what I suspect has happened is is that she aspirated with her severe nausea vomiting causing severe pneumonia, causing severe septic shock. She has NSTEMI so she likely has significant cardiac stress from her septic shock she could be suffering an acute cardiac event however her EKG has no acute ST-T wave changes and she is a high risk of morbidity and mortality for cardiac intervention currently. She does have hyponatremia and hypokalemia supporting the theory of her severe nausea vomiting for the last 3 weeks. She does also have evidence of acute respiratory failure given her pneumonia. She is febrile. She also has A-fib with RVR, given her sepsis and septic shock. She is on pressors given her sepsis and septic shock. The question is that if she is diabetic ketoacidosis she has a history of severe diabetes she is not on any diabetic medications the question is what is the etiology that drove all this. Does in fact she have Listeria and or did she have diabetic ketoacidosis with all the consumption of her ice cream. I looked online, and I cannot find that this specific brand of ice cream was associate with Listeria. But patient's family was told that over the phone that it was this brand of ice cream that was affected. Nonetheless she has a penicillin allergy so I can give her ampicillin, will start on meropenem. I will put her on isolation precautions just to be on the safe side. Will obtain records from [facility]. However my thought is she likely had diabetic ketoacidosis that was the likely etiology behind her 3 weeks of nausea and vomiting, I am going to look at the record from [facility] once I get them to confirm. Nonetheless we will start her on broad-spectrum antibiotic therapy, replace electrolytes she might require an insulin drip based upon her further blood work. For now we have to replace her electrolytes. Currently she is critically ill, status is stable, prognosis is guarded. I discussed goals of care with patient's son, patient's son tells me that if her heart stops just let her pass away. He does not want to have overly aggressive interventions. He tells me that if she were to decompensate on the ventilator for us to let her pass away. He wants her to just be comfortable for us to ease her pain and ease her suffering if she were to deteriorate. He wants us to continue medical interventions for now however if she were to deteriorate such the point it which the likelihood of a meaningful recovery is very unlikely for us to stop all interventions. He does not want overly aggressive interventions. I did discuss with him if she would want to remain on mechanical ventilation currently, he is okay with the interventions that were doing for her now. But he would not want her to be on life-sustaining measures for a prolonged period of time if it came to that point he would just he told me that he would want everything to be stopped. Will monitor in the ICU. Review of Systems General: Reports: ROS unobtainable due to mental status Medications/Allergies Home Medications Medication Instructions Recorded Confirmed Last Taken Type niacin 500 mg tablet 500 mg PO DAILY 11/25/19 08/22/23 Unknown History omeprazole magnesium 20 mg 20 mg PO DAILY 11/25/19 08/22/23 Unknown History tablet,delayed release (Prilosec OTC) losartan 25 mg tablet 25 mg PO DAILY 90 days #90 tabs 05/14/23 08/22/23 Unknown Rx apixaban 5 mg tablet (Eliquis) 2.5 mg PO BID 08/22/23 08/22/23 Unknown History hydrochlorothiazide 12.5 mg capsule 12.5 mg PO DAILY 08/22/23 08/22/23 Unknown History metoprolol tartrate 100 mg tablet 200 mg PO BID 08/22/23 08/22/23 Unknown History simvastatin 40 mg tablet 40 mg PO DAILY 08/22/23 08/22/23 Unknown History Allergies Allergy/AdvReac Type Severity Reaction Status Date / Time iodine Allergy Unknown Verified 08/22/23 12:20 nifedipine Allergy Unknown Verified 08/22/23 12:20 Penicillins Allergy Unknown Verified 08/22/23 12:20 PFSH Acute PFSH: Medical History History of cataract Essential (primary) hypertension Surgical History History of hysterectomy Family History Other Breast cancer Social History Smoking and tobacco/nicotine status: never used tobacco/nicotine Alcohol intake: never Substance/Drug Use: never Adopted: No Caregiver/support person: Yes Lives independently: No Household members: significant other Marital status: / Current occupational status: retired Do you think of yourself as: Straight/Heterosexual Current gender identity: Female Vitals/I&O/Wt Last Vital Signs Temp 100.3 F H 08/22/23 12:15 Pulse 157 H 08/22/23 16:20 Resp 14 08/22/23 16:20 BP 111/57 08/22/23 16:20 Pulse Ox 90 08/22/23 16:20 O2 Del Method Mechanical Ventilation 08/22/23 13:22 O2 Flow Rate 15 08/22/23 12:15 FiO2 60 08/22/23 14:20 08/22/23 08/22/23 08/22/23 06:59 14:59 22:59 Intake Total 9.042 / 9.042 Balance 9.042 / 9.042 Weight last 48 hrs Weight 39.463 kg Physical Exam Const: COMMON NORMALS: no acute distress GENERAL APPEARANCE: comfortable OTHER: Has evidence of severe muscle loss, has temporal muscle wasting, peripheral muscle wasting, loose abdominal skin, Endotracheal tube in place ? Right central line in place HENMT: COMMON NORMALS: normocephalic HEAD & SCALP: normocephalic Eye: COMMON NORMALS: Equal, round and reactive pupils present GENERAL EYE: appearance normal, both eyes and all related structures Neck/C-Spine: COMMON NORMALS: no lymphadenopathy and no JVD THYROID: Thyroid normal Lymph: LYMPHATIC: no lymphadenopathy noted Resp: COMMON NORMALS: normal respiratory effort, No retractions, No use of accessory muscles and clear to auscultation bilaterally AUSCULTATION: clear to auscultation bilaterally Cardio: COMMON NORMALS: S1 normal heart sound present, S2 normal heart sound present, No gallops present (Cardio), No clicks present (Cardio) and No murmurs present (Cardio) RATE: tachycardic RHYTHM: abnormal rhythm HEART SOUNDS: S1 normal heart sound present and S2 normal heart sound present GI: COMMON NORMALS: Normal to inspection, nondistended, normoactive bowel sounds present, Soft to palpation and non-tender Extremity: COMMON NORMALS: no pedal edema Sepsis: Is patient septic: Yes Focused sepsis exam performed: Yes Focused sepsis exam: Septic shock, ? DP PT pulses are nonpalpable, capillary refill greater than 3 seconds, has mottling of bilateral lower extremities up to the level of bilateral shins, Date exam was performed: 08/22/23 Time exam was performed: 16:50 Data 08/22/23 12:52 08/22/23 12:52 Micro: Microbiology 08/22/23 12:52 Blood Culture - Preliminary Blood SPECIMEN COLLECTED 08/22/23 12:53 Blood Culture - Preliminary Blood SPECIMEN COLLECTED A&P Assessment and plan (1) Acute hypoxic respiratory failure: (2) Unresponsiveness: (3) Septic shock: (4) Lactic acidosis: (5) Metabolic acidosis: (6) NSTEMI (non-ST elevated myocardial infarction): (7) Acute renal failure: (8) Hypernatremia: (9) Hypokalemia: (10) Atrial fibrillation with RVR: (11) Increased anion gap metabolic acidosis: (12) Aspiration pneumonia: (13) Collapse of left lung: (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 Secondary to aspiration, ? Secondary to left lower lobe lung collapse ? Plan, ? Continue ICU level monitoring, ? Continue intubation, ? Minimize tidal volume, minimize FiO2, ? Fentanyl, Versed, propofol for sedation, ? Monitor respiratory status closely, ? Patient's son tells me that if her condition worsens, she deteriorates on the ventilator, he wants us to proceed with just making her comfortable, and easing her pes and easing her suffering allowing her to pass out comfortably, ? Pulmonary critical care has been consulted, plans on possible bronchoscopy when patient is more stable Septic shock, ? Secondary to pneumonia ? Sputum cultures ? Blood cultures, ? Respiratory viral panel, ? Broad-spectrum antibiotic therapy vancomycin, meropenem ? Monitor lactic acid ? Monitor clinical status closely ? Continue Levophed, maintain MAP more than 65, Left lower lobe lung collapse, ? Pulmonary critical care consulted, ? Possible bronchoscopy when patient is more stable, Hypokalemia, potassium 2.6, will replace IV Hypernatremia likely sec to dehydration, IV fluids, Diabetic ketoacidosis ? Check ketones ? Once potassium is repleted, and potassium is greater than 3.5 we will start insulin drip ? DKA protocol ? Check BMP every 4 hours, ? Every hour blood sugars, ? IV fluids, A-fib with RVR ? Amiodarone drip, -Continue heparin drip, NSTEMI, ? Type I versus type II, ? Cannot rule out underlying cardiology given type 2 diabetes mellitus, poorly controlled, ? Cardiac echo, ? Continue heparin drip, History of nosebleed, monitor as on heparin drip, Increased anion gap metabolic acidosis, ? Multifactorial from sepsis, septic shock, diabetic ketoacidosis, Anorexia, BMI 15.9, Poorly controlled type 2 diabetes mellitus, insulin drip as above Acute renal failure, likely sec to dehydration, nausea, vomiting, diarrhea, diabetic ketoacidosis, sepsis, septic shock ? Monitor urine output, ? Monitor creatinine, monitor potassium, Possible Listeria food poisoning, ? I looked up patient's sons reported ice cream, it is a [employer] brand, home style home style ice cream, ? Its not part of the recall, I also visited the [facility] website, the [place] website and it was not part of the recalls, ? But I will give patient benefit of the doubt, as apparently according to the son he was called and told that she had a Listeria infection I am not sure if this was [facility] ? I will get records from [facility] I did call them however their medical record department was closed, ? For now I will place her on meropenem for coverage Goals of care discussion, patient's son tells me that he does not want his mom to get CPR, he does not want to have overly aggressive interventions, if her condition were to deteriorate, he just wants her to be comfortable Spoke to patient's son, spoke to pulmonary critical, spoke to ER doctor Attestations Medical Necessity Statement*: Patient requires hospitalization for acute hypoxic respiratory failure, septic shock, sepsis, pneumonia, left lung collapse, NSTEMI, acute renal failure,Increased anion gap metabolic acidosis lactic acidosis, hypokalemia, hypernatremia, acute renal failure, hyperglycemia, diabetic ketoacidosis Coding Level of Care Code Critical Care >/= 30 minutes Critical care time (in minutes): 60 Diagnoses Acute hypoxic respiratory failure J96.01 Unresponsiveness R41.89 Septic shock A41.9; R65.21 Lactic acidosis E87.20 Metabolic acidosis E87.20 NSTEMI (non-ST elevated myocardial infarction) I21.4 Acute renal failure N17.9 Hypernatremia E87.0 Hypokalemia E87.6 Atrial fibrillation with RVR I48.91 Increased anion gap metabolic acidosis E87.29 Aspiration pneumonia J69.0 Collapse of left lung J98.11 Listeria food poisoning A05.8 Diabetic ketoacidosis E11.10 Anorexia R63.0 Protein calorie malnutrition E46
--- NOTE | 2023-08-22 16:38 | P.CONIM_ITS ---
Providers/Reason For Consult 2 Consulting Physician/Specialty*: Cardiology Reason for Consult*: Atrial fibrillation with rapid ventricular response Requesting Physician: Cardiology Attending Physician: Kenton Cool MD Primary Care Provider: SHARMAINE Esparza History of Present Illness History of Present Illness Sonia Baca is a 82 year old female who was admitted to the emergency room after she was found by her son slumped over unresponsive in bed. Patient was barely breathing according to the son. Patient called EMS patient was intubated and was brought into the emergency room where she was found to have an atrial fibrillation with rapid ventricular response hypertensive. Patient was started on pressors IV fluids heart rate was in the 150s atrial fibrillation rapid ventricular response with some ST changes. Blood pressure improved after pressors and IV fluid started the patient subsequently on IV Cardizem with heart rate slowing down to 117. Troponin was in the 400 range. EKG showed atrial fibrillation with rapid ventricular response as diffuse ST-T changes. Lab work revealed significantly elevated lactate 12. Potassium was 2.6 being replaced in the emergency room patient she was also found to have acute renal failure. Her son said that she had no significant history of CAD or NV. He stated that she has not been drinking or eating for last 3 weeks unable to keep anything down. Medications/Allergies Home Medications Medication Instructions Recorded Confirmed Last Taken Type niacin 500 mg tablet 500 mg PO DAILY 11/25/19 08/22/23 Unknown History omeprazole magnesium 20 mg 20 mg PO DAILY 11/25/19 08/22/23 Unknown History tablet,delayed release (Prilosec OTC) losartan 25 mg tablet 25 mg PO DAILY 90 days #90 tabs 05/14/23 08/22/23 Unknown Rx apixaban 5 mg tablet (Eliquis) 2.5 mg PO BID 08/22/23 08/22/23 Unknown History hydrochlorothiazide 12.5 mg capsule 12.5 mg PO DAILY 08/22/23 08/22/23 Unknown History metoprolol tartrate 100 mg tablet 200 mg PO BID 08/22/23 08/22/23 Unknown History simvastatin 40 mg tablet 40 mg PO DAILY 08/22/23 08/22/23 Unknown History Allergies Allergy/AdvReac Type Severity Reaction Status Date / Time iodine Allergy Unknown Verified 08/22/23 12:20 nifedipine Allergy Unknown Verified 08/22/23 12:20 Penicillins Allergy Unknown Verified 08/22/23 12:20 Current Medications Generic Name Dose Route Start Last Admin Trade Name Sebastienq PRN Reason Stop Dose Admin Fentanyl 1,000 mcg in 100 mls @ 0 mls/hr 08/22/23 12:30 08/22/23 13:35 Sublimaze IV 25 mcg/hr .Q0M FREDDY 2.5 mls/hr Administration Protocol Per Protocol Midazolam HCl 100 mg in 100 mls @ 0 mls/hr 08/22/23 12:30 08/22/23 13:36 Versed IV 2 mg/hr .Q0M FREDDY 2 mls/hr Administration Protocol Per Protocol norepinephrine 4 mg in 250 mls @ 0 mls/hr 08/22/23 12:30 08/22/23 13:36 Levophed IV 4 mcg/min .Q0M FREDDY 15 mls/hr Administration Protocol Per Protocol Potassium Chloride 100 mls @ 25 mls/hr 08/22/23 14:15 08/22/23 14:58 K-Mike IV 08/22/23 22:14 25 mls/hr Q4H FREDDY Administration Heparin Sodium/Sodium Chloride 25,000 unit in 500 mls @ 0 mls/hr 08/22/23 14:15 08/22/23 15:25 Heparin Drip IV 13.94 unit/kg/hr .Q0M FREDDY 11 mls/hr Administration Protocol Per Protocol Amiodarone HCl/Dextrose 360 mg in 200 mls @ 0 mls/hr 08/22/23 15:41 08/22/23 16:28 Nexterone IV 1 mg/min .Q0M FREDDY 33.33 mls/hr Administration Protocol Per Protocol PFSH Acute 2 PFSH: Medical History (Updated 08/22/23 @ 16:52 by Kenton Cool MD) History of cataract Essential (primary) hypertension Surgical History (Updated 08/22/23 @ 14:18 by Alan Garrido DO) History of hysterectomy Family History Other Breast cancer Social History Smoking and tobacco/nicotine status: never used tobacco/nicotine Alcohol intake: never Substance/Drug Use: never Adopted: No Caregiver/support person: Yes Lives independently: No Household members: significant other Marital status: / Current occupational status: retired Do you think of yourself as: Straight/Heterosexual Current gender identity: Female Vitals/I&O/Wt Last Vital Signs Temp 100.3 F H 08/22/23 12:15 Pulse 157 H 08/22/23 16:20 Resp 14 08/22/23 16:20 BP 111/57 08/22/23 16:20 Pulse Ox 90 08/22/23 16:20 O2 Del Method Mechanical Ventilation 08/22/23 13:22 O2 Flow Rate 15 08/22/23 12:15 FiO2 60 08/22/23 14:20 08/22/23 08/22/23 08/22/23 06:59 14:59 22:59 Intake Total 9.042 / 9.042 Balance 9.042 / 9.042 Weight last 48 hrs Weight 87 lb Physical Exam 2 Const: OTHER: Patient is sedated and intubated blood pressure is 134/60 on nor epi drip. Heart rate is now 117 atrial fibrillation. Chronically ill-appearing. Emaciated Chest: COMMONS NORMALS: normal inspection of the chest, normal palpation of entire chest wall, normal inspection of the breasts and normal palpation of the breasts Cardio: OTHER: Irregular heart rate tachycardic at 117 consistent with atrial fibrillation. No murmurs. No S3 or S4 Extremity: COMMON NORMALS: normal to inspection, full ROM, capillary refill normal, no joint enlargement, no clubbing, cyanosis or edema, no calf tenderness and no pedal edema Psych: OTHER: Sedated and intubated Skin: OTHER: poor skin turgor. Data 08/22/23 12:52 08/22/23 12:52 Micro: Microbiology 08/22/23 12:52 Blood Culture - Preliminary Blood SPECIMEN COLLECTED 08/22/23 12:53 Blood Culture - Preliminary Blood SPECIMEN COLLECTED A&P Assessment and plan (1) Essential (primary) hypertension: Currently hypotensive likely due to septic shock and lactic acidosis. Patient IV fluids and pressors blood pressure under improved (2) Atrial fibrillation with RVR: Heart rate somewhat improved patient was started on IV Cardizem in the emergency room. We will switch to IV amiodarone and wean off the Cardizem drip. Patient on IV heparin drip (3) Hypokalemia: Being replaced by IV boluses of potassium. Repeat K later on today. Patient had acute renal insufficiency we will monitor his renal function (4) Hypernatremia: Likely due to her severe dehydration and poor intake patient is on IV fluids (5) NSTEMI (non-ST elevated myocardial infarction): I will continue to monitor her troponins. Patient is not candidate for any invasive treatment at this time in light of her multiple comorbidities specifically acute renal failure and sepsis. Patient will be reassessed if she recovers well. Will assess her LV function with echocardiogram. Overall problem poor prognosis. Discussed with the son in the emergency room. (6) Lactic acidosis: Managed by hospitalist. Coding Level of Care Code 10822 Diagnoses Essential (primary) hypertension I10 Atrial fibrillation with RVR I48.91 Hypokalemia E87.6 Hypernatremia E87.0 NSTEMI (non-ST elevated myocardial infarction) I21.4 Lactic acidosis E87.20
[2023-08-22 17:38] LABS: Lactic Acid level (Lactate) 6.7 mmol/L (0.5-2.2)
[2023-08-22] MEDS: sodium chloride 0.9% 1,000 ML 125 ML IV (17:45)
[2023-08-22] MEDS: pantoprazole 40 mg SDV IVP (17:54)
[2023-08-22 17:58] LABS: Ketone (Acetest) Serum Negative (Negative)
--- NOTE | 2023-08-22 18:12 | PC.NURSE ---
pt unresposive on vent and multiple medication pupils pinpoint only withdraw to pain no family here son has gone home pt is not code at this time.. unable to complete social history and immunization and suicide risk at this time
--- NOTE | 2023-08-22 18:33 | ECG_ITS ---
[facility] Test Date: 2023-08-22 Pat Name: Sonia Baca Department: Room: ICU12 Gender: Female Staff Development Coordinator Rn: : [id number] Requested By: Alna Summers Order Number: [id number] Reading MD: Radha Hogan M.D. Measurements Intervals [place] Rate: 143 P: 0 AK: 0 QRS: 55 QRSD: 85 T: 207 QT: 323 QTc: 498 Interpretive Statements ATRIAL FIBRILLATION WITH RAPID VENTRICULAR RESPONSE NONSPECIFIC T-WAVE ABNORMALITY Compared to ECG 08/22/2023 14:38:52 T-wave abnormality now present Electronically Signed On 08-23-2023 6:09:34 FABRIC PATTERN GRADER by Radha Hogan M.D. [email or web address]
[2023-08-22 18:49] LABS: Glucose Point of Care 427 mg/dL (70-110)
[2023-08-22 18:55] LABS: Chol HDL Ratio 6.86 mg/dL (0.0-4.40); Cholesterol 96 mg/dL (0-200); HDL Cholesterol 14 mg/dL (60-100); LDL Cholesterol Calculated 48 mg/dL (50-129); LDL HDL Ratio 3.43 RATIO (0.00-3.22); Magnesium 2.2 mg/dL (1.7-2.3); Thyroid Stimulating Hormone 0.37 uIU/mL (0.27-4.20); Triglycerides 171 mg/dL (0-150)
[2023-08-22] MEDS: sodium chlor 0.45% +KCl 20 mEq 20 MEQ/1,000 ML BAG 125 MEQ IV (19:35)
[2023-08-22 19:46] LABS: Reflex FDPQ test REFLEX FDP QUEST TES
[2023-08-22 20:07] LABS: Estmated Average Glucose 212
[2023-08-22 20:10] LABS: INR 2.66 (0.8-1.2)
[2023-08-22 20:17] LABS: Fibrinogen 565 mg/dL (174-498)
[2023-08-22 20:23] LABS: Troponin 5 6HR 363.6 ng/L (0-10)
[2023-08-22] MEDS: vancomycin 500 MG in sodium chloride 0.9% (plus) 100 ML 200 MG IV (20:28)
[2023-08-22 22:02] LABS: Anion Gap 25.6 (5-19); Blood Urea Nitrogen 54 mg/dL (8-23); Carbon Dioxide 17 mmol/L (22-29); Chloride 113 mmol/L (98-107); Cortisol Random 23.54 ug/dL (2.47-19.5); Osmolality Calculated 352 mOsm/kg (285-295); Potassium 3.6 mmol/L (3.5-5.1); Sodium 152 mmol/L (136-145)
[2023-08-22 22:03] LABS: Glucose 512 mg/dL (65-115)
[2023-08-22] MEDS: insulin regular-human 250 UNIT in sodium chloride 0.9% 250 ML IV (22:45)
[2023-08-22 22:47] LABS: Anion Gap 24.6 (5-19); Blood Urea Nitrogen 55 mg/dL (8-23); Calcium 7.8 mg/dL (8.5-10.5); Carbon Dioxide 16 mmol/L (22-29); Chloride 115 mmol/L (98-107); Osmolality Calculated 351 mOsm/kg (285-295); Potassium 4.6 mmol/L (3.5-5.1); Sodium 151 mmol/L (136-145)
[2023-08-22 22:50] LABS: Glucose 523 mg/dL (65-115)
[2023-08-23] VITALS (58 sets, daily range): BP systolic 77–170; BP diastolic 48–105; PULSE 97–160; RESP 14–23; TEMP 35.7–37.4; O2SAT 78–97
[2023-08-23] LABS: Glucose Point of Care 368 mg/dL (70-110)
[2023-08-23] MEDS: meropenem 1,000 MG in sodium chloride 0.9% (plus) 50 ML 100 MG IV ×4 (00:23→23:47)
[2023-08-23 01:14] LABS: Partial Thromboplastin Time 113.4 SECONDS (23.9-36.7)
[2023-08-23] MEDS: norepinephrine 4 MG/250 ML BAG 22.5 MG IV ×2 (01:29→22:40)
[2023-08-23 02:08] LABS: Glucose Point of Care 327 mg/dL (70-110)
[2023-08-23] MEDS: sodium chlor 0.45% +KCl 20 mEq 20 MEQ/1,000 ML BAG 125 MEQ IV ×2 (02:20→10:27)
[2023-08-23] MEDS: fentaNYL 1,000 MCG/100 ML BAG 10 MCG IV (03:04)
[2023-08-23 03:09] LABS: Glucose Point of Care 425 mg/dL (70-110)
[2023-08-23 03:14] LABS: Procalcitonin 40.72 ng/mL (0-0.5)
[2023-08-23 03:28] LABS: Blood Urea Nitrogen 51 mg/dL (8-23); Calcium 7.9 mg/dL (8.5-10.5); Carbon Dioxide 19 mmol/L (22-29); Chloride 118 mmol/L (98-107); Glucose 392 mg/dL (65-115); Osmolality Calculated 346 mOsm/kg (285-295); Sodium 153 mmol/L (136-145)
[2023-08-23 03:29] LABS: Creatine Phosphokinase 475 U/L (26-192)
[2023-08-23 04:05] LABS: Glucose Point of Care 264 mg/dL (70-110)
[2023-08-23 04:38] LABS: Mean Corpuscular HGB Conc 31.9 g/dL (30-55); Mean Corpuscular Hemoglobin 31.8 pg (27-33); Mean Corpuscular Volume 99.8 fl (85-98); Mean Platelet Volume 12.1 fL (7.4-10.4); Platelet Count 102 10^3/cmm (157-399); Red Blood Count 4.21 10^6/uL (3.85-5.65); Red Cell Distribution Width 16.3 % (12.1-15.1); White Blood Count 20.44 10^3/uL (3.29-11.43)
[2023-08-23 04:44] LABS: ABG PH Result 7.32 (7.35-7.45); Blood Gas Operator Identificat JB; Blood Gas Sample Site Brachial, right; Blood Gas Sample Type Arterial; Blood Gas Tidal Volume 0.35; PO2 FiO2 Ratio Arterial Blood 0
[2023-08-23 04:46] LABS: Arterial Blood Gas Hematocrit 49.4 % (37-47); Base Excess ABG -6.7 mmol/L (-2.0-2.0); Blood Gas Allen Test Pos; HCO3 ABG 18.6 mmol/L (22-26); Oxygen Device VENT; PO2 ABG 63.6 mmHg (80.0-100.0)
[2023-08-23 04:58] LABS: Alanine Aminotransferase 62 U/L (0-33); Albumin Level 2.2 g/dL (3.5-5.2); Alkaline Phosphatase 56 U/L (35-105); Anion Gap 17.9 (5-19); Aspartate Amino Transferase 125 U/L (0-32); Blood Urea Nitrogen 46 mg/dL (8-23); C Reactive Protein 202.7 mg/L (0.0-4.9); Calcium 7.8 mg/dL (8.5-10.5); Carbon Dioxide 18 mmol/L (22-29); Chloride 120 mmol/L (98-107); Globulin 2.9 g/dL (1.3-4.6); Glucose 303 mg/dL (65-115); Magnesium 2.2 mg/dL (1.7-2.3); Osmolality Calculated 339 mOsm/kg (285-295); Sodium 153 mmol/L (136-145); Total Bilirubin 0.4 mg/dL (0.15-1.2); Total Protein 5.1 g/dL (6.6-8.7)
[2023-08-23 05:02] LABS: Phosphorus 0.9 mg/dL (2.5-4.5); Potassium 2.9 mmol/L (3.5-5.1)
[2023-08-23] MEDS: lidocaine 1% 5 ML in potassium chloride premix 100 ML 25 ML IV (05:08)
[2023-08-23 05:11] LABS: NT Pro B Type Natriuretic Pept 9333 pg/mL (0-450)
[2023-08-23 05:12] LABS: Lactate (Lactic Acid level) 5.5 mmol/L (0.5-2.2)
[2023-08-23 05:17] LABS: Glucose Point of Care 305 mg/dL (70-110)
--- NOTE | 2023-08-23 06:00 | USCV_ITS ---
Sonia Baca Age: 82 Gender: F : 1940 Exam Date: 08/23/2023 11:06 Ordering Phys: Kenton Cool MD Technologist: Juan Albright [place] [facility] [place]: sob BP: 111 / 69 HR: 117 Rhythm: Sinus Technical Quality: Technically difficult study MEASUREMENTS (Male / Female) Normal Values 2D ECHO LVOT Diameter 2.0 cm LA Diameter 3.4 cm LA Width 2.7 cm LA Height 3.3 cm RA Width 2.8 cm RA Height 3.6 cm Aorta at Sinotubular Diameter 2.0 cm IVC Diameter 1.5 cm M-MODE Aortic Annulus Diameter 1.9 cm LA Ao Ratio MM 1.7 MV E Point Septal Separation 0.1 cm DOPPLER AV Peak Velocity 134.0 cm/s LVOT Peak Velocity 97.0 cm/s AV Area Cont Eq vti 2.5 cm squared AV Area Cont Eq pk 2.3 cm squared MV Peak Velocity 108.0 cm/s MV Area PHT 5.5 cm squared MV E' Velocity 74.0 cm/s TR Peak Velocity 246.5 cm/s TR Peak Gradient 24.3 mmHg TR Mean Velocity 177.2 cm/s TR Mean Gradient 14.7 mmHg TR Velocity Time Integral 47.9 cm Right Atrial Pressure 8.0 mmHg Pulmonary Artery Systolic Pressu 32.3 mmHg PV Peak Velocity 78.0 cm/s RV Acceleration Time 0.1 s RV Ejection Time 0.2 s RV AcT/ET 0.3 FINDINGS Left Ventricle Technically difficult study with suboptimal views. Overall LV function seems to be preserved. Estimated ejection fraction on subcostal views about 60%. Grade 1 diastolic dysfunction Right Ventricle The right ventricle is normal in size and function. Right Atrium The right atrium is normal in size. Left Atrium The left atrium is normal in size. Mitral Valve Mitral valve not well-visualized. There is mild mitral regurgitation. Aortic Valve Not well-visualized aortic valve. No significant sclerosis or stenosis. There is no aortic regurgitation. Tricuspid Valve Structurally normal tricuspid valve without significant stenosis. There is mild regurgitation. Pulmonary artery systolic pressure is normal. Pulmonic Valve Pulmonic valve not well-visualized. Pericardium Normal pericardium without effusion. Aorta Normal ascending aorta dimension. IVC The inferior vena cava appears normal. CONCLUSIONS Normal LV function. No significant valvular disease within study limitation Yousef Abdunlnabi MD (Electronically Signed) Final Date: 24 August 2023 10:35 S
[2023-08-23 06:08] LABS: Absolute Segmented Neutrophil 14.3 10/cmm (1.6-7.1); Band Neutrophils Absolute 2.5 10^3/cmm (0.0-1.2); Segmented Neutrophils 70 %; Slide Review Slide Review Perform; Total Cells Counted 100 (0-100)
[2023-08-23 06:09] LABS: Absolute Neutrophil 16.8 10^3/cmm (1.4-6.5); Eosinophils 0 %; Lymphocytes 10 %; Platelet Estimate Decreased (Normal)
[2023-08-23 06:23] LABS: Glucose Point of Care 270 mg/dL (70-110)
--- NOTE | 2023-08-23 07:00 | XRR_ITS ---
PROCEDURE INFORMATION: Exam: XR Chest Exam date and time: 08/23/2023 7:44 AM Age: 82 years old Clinical indication: Device placement; Ett placement (vent status); Additional info: SOB TECHNIQUE: Imaging protocol: Radiologic exam of the chest. Views: 1 view. COMPARISON: CT angio chest w abd pel w con 08/22/2023 1:57 PM FINDINGS: Tubes, catheters and devices: NG tube coursing into the stomach below the field of view. Right-sided central line terminating in the SVC above the cavoatrial junction. Tip of ET 2 projecting 1 cm above the juan and should be withdrawn additional 2-3 cm. Lungs: Large retrocardiac area of consolidation left lower lobe shown on earlier CT exam to be secondary to atelectasis. Remaining lung guerra are clear. A Pleural spaces: Unremarkable. No pleural effusion. No pneumothorax. Heart/Mediastinum: Unremarkable. No cardiomegaly. Bones/joints: Unremarkable for age. XR/XR chest 1V portable [id number] IMPRESSION: 1. Tubes and lines as discussed above. 2. Left lower lobe atelectasis, unchanged.
[2023-08-23 07:12] LABS: Glucose Point of Care 159 mg/dL (70-110)
[2023-08-23 08:47] LABS: Alanine Aminotransferase 76 U/L (0-33); Alkaline Phosphatase 63 U/L (35-105); Anion Gap 18.7 (5-19); Aspartate Amino Transferase 137 U/L (0-32); Blood Urea Nitrogen 47 mg/dL (8-23); Carbon Dioxide 18 mmol/L (22-29); Chloride 121 mmol/L (98-107); Globulin 3.3 g/dL (1.3-4.6); Glucose 198 mg/dL (65-115); Magnesium 2.2 mg/dL (1.7-2.3); Osmolality Calculated 334 mOsm/kg (285-295); Phosphorus 1.1 mg/dL (2.5-4.5); Potassium 4.7 mmol/L (3.5-5.1); Sodium 153 mmol/L (136-145); Total Bilirubin 0.4 mg/dL (0.15-1.2); Total Protein 5.3 g/dL (6.6-8.7)
[2023-08-23 08:53] LABS: Partial Thromboplastin Time 122.6 SECONDS (23.9-36.7)
[2023-08-23 09:06] LABS: Glucose Point of Care 176 mg/dL (70-110)
--- NOTE | 2023-08-23 09:25 | PC.NURSE ---
mts cleared not candidate at this time
[2023-08-23 09:27] LABS: Adenovirus Not Detected (NOT DETECT); Chlamydia Pneumoniae Not Detected (NOT DETECT); Coronavirus 229E,HKU1,NL63,OC4 Not Detected (NOT DETECT); Human Metapneumovirus Not Detected (NOT DETECT); Human Rhinovirus/Enterovirus Not Detected (NOT DETECT); Influenza A Not Detected (NOT DETECT); Influenza A H1 Not Detected (NOT DETECT); Influenza A H1-2009 Not Detected (NOT DETECT); Influenza A H3 Not Detected (NOT DETECT); Influenza B Not Detected (NOT DETECT); Mycoplasma Pneumoniae Not Detected (NOT DETECT); Parainfluenza Virus Type 1 Not Detected (NOT DETECT); Parainfluenza Virus Type 2 Not Detected (NOT DETECT); Parainfluenza Virus Type 3 Not Detected (NOT DETECT); Parainfluenza Virus Type 4 Not Detected (NOT DETECT); Respiratory Syncytial Virus A Not Detected (NOT DETECT); Respiratory Syncytial Virus B Not Detected (NOT DETECT)
--- NOTE | 2023-08-23 09:28 | PC.NURSE ---
dr calderon here aware lab and ion gap insulin gtt off at this time very minimal twitch noted levophed gtt increased at this time ....
[2023-08-23 09:49] LABS: SARS-COV-2 Detected (NOT DETECT)
--- NOTE | 2023-08-23 10:02 | PC.NURSE ---
doctor aware of covid pos... orders insulin gtt to infuse at 2 u/h and accucheck q 4h weaned down fentynly and versed off placed on isolation
[2023-08-23] MEDS: dexamethasone 10 mg/mL INJ 6 MG IVP (10:27)
[2023-08-23] MEDS: norepinephrine 4 MG/250 ML BAG 30 MG IV (10:28)
[2023-08-23] MEDS: remdesivir 200 MG in sodium chloride 0.9% (100 ml) 60 ML 100 MG IV (10:28)
--- NOTE | 2023-08-23 10:58 | P.PN_ITS ---
Subjective 2 Subjective: Patient was found to have COVID infection. Still on the ventilator intubated and sedated requiring high FiO2. Her heart rate in 120s atrial fibrillation on IV amiodarone. Vitals/I&O/Wt Last Vital Signs Temp 96.9 F L 08/23/23 08:30 Pulse 146 H 08/23/23 08:30 Resp 15 08/23/23 07:30 BP 111/69 08/23/23 08:30 Pulse Ox 95 08/23/23 08:30 O2 Del Method Mechanical Ventilation 08/22/23 17:29 O2 Flow Rate 15 08/22/23 12:15 FiO2 80 08/23/23 08:00 08/22/23 08/23/23 08/23/23 22:59 06:59 14:59 Intake Total 3198.556 / 3207.598 1650.847 / 4858.445 1539.371 / 1539.371 Output Total 1375 / 1375 Balance 3198.556 / 3207.598 275.847 / 3483.445 1539.371 / 1539.371 Weight last 48 hrs Weight 87 lb Weight 87 lb Physical Exam 2 Narrative: Patient is intubated and sedated. Resp: AUSCULTATION: rhonchi and diminished lung sounds Cardio: RHYTHM: abnormal rhythm OTHER: Consistent with atrial fibrillation. Extremity: OTHER: No edema Neuro: OTHER: Intubated sedated Data 08/23/23 04:04 08/23/23 08:17 Micro: Microbiology 08/22/23 12:52 Blood Culture - Preliminary Blood SPECIMEN COLLECTED 08/22/23 12:53 Blood Culture - Preliminary Blood SPECIMEN COLLECTED A&P Assessment and plan (1) Atrial fibrillation with RVR: Rate still not fairly controlled I will continue on IV amiodarone add digoxin as needed. We will obtain an echocardiogram to assess her LV function. (2) NSTEMI (non-ST elevated myocardial infarction): Continue IV heparin her troponin is trending down. Patient is not candidate for any invasive therapy at this time. Continue medical therapy as tolerated. Overall prognosis are poor in light of her multi organ failure superimposed COVID infection (3) Septic shock: Still hypotensive requiring pressors continue IV fluids. Management per hospitalist (4) Acute hypoxic respiratory failure: On ventilator requiring high FiO2. Attestations 2 Medical Necessity Statement*: Patient still on ventilator hypoxic and hypotensive. Coding Level of Care Code 80223 Diagnoses Atrial fibrillation with RVR I48.91 NSTEMI (non-ST elevated myocardial infarction) I21.4 Septic shock A41.9; R65.21 Acute hypoxic respiratory failure J96.01
[2023-08-23] MEDS: apixaban 5 mg Tablet PO ×2 (11:04→20:27)
[2023-08-23 12:54] LABS: Anion Gap 17.8 (5-19); Blood Urea Nitrogen 46 mg/dL (8-23); Calcium 7.9 mg/dL (8.5-10.5); Carbon Dioxide 21 mmol/L (22-29); Chloride 118 mmol/L (98-107); Glucose 240 mg/dL (65-115); Osmolality Calculated 334 mOsm/kg (285-295); Potassium 4.8 mmol/L (3.5-5.1); Sodium 152 mmol/L (136-145)
[2023-08-23 13:17] LABS: Glucose Point of Care 217 mg/dL (70-110)
[2023-08-23] MEDS: digoxin 250 mcg/ml INJ 2 mL IVP (14:02)
[2023-08-23] MEDS: pantoprazole 40 mg SDV IVP (17:40)
--- NOTE | 2023-08-23 17:42 | P.PN_ITS ---
Subjective 2 Subjective: Patient still sedated and intubated. Pressor support coming down Chest x-ray still showing left lower lobe atelectasis Heart rate well-controlled with amiodarone drip however while trying to wean off sedation-her heart rate back in 140s Serum sodium 153-currently on D5 half NS; on insulin drip Phosphorus 1.1 Lactic acid, renal functions improving Other labs and imaging reviewed Vitals/I&O/Wt Last Vital Signs Temp 98.6 F 08/23/23 10:30 Pulse 153 H 08/23/23 16:30 Resp 20 H 08/23/23 15:40 BP 122/66 08/23/23 16:30 Pulse Ox 93 08/23/23 16:30 O2 Del Method Mechanical Ventilation 08/22/23 17:29 O2 Flow Rate 15 08/22/23 12:15 FiO2 80 08/23/23 15:40 08/23/23 08/23/23 08/23/23 06:59 14:59 22:59 Intake Total 1650.847 / 4858.445 1811.596 / 1811.596 0 / 1811.596 Output Total 1375 / 1375 1375 / 1375 Balance 275.847 / 3483.445 436.596 / 436.596 0 / 436.596 Weight last 48 hrs Weight 87 lb Weight 87 lb Physical Exam 2 Narrative: PHYSICAL EXAM: General: lying in bed, sedated and intubated. 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 SKIN: no rash LDA: # CVC: Right subclavian 08/22/2020; right femoral line 08/22/2023 # Valenzuela: 08/22/2023 Data 08/24/23 00:24 08/24/23 03:22 Other Labs: Radiology Impressions Chest X-Ray 08/24/23 07:00 IMPRESSION: Support lines and catheters in place as described. Bibasilar pneumonia, worse on the left. Laboratory Results WBC 22.69 10^3/uL (3.29-11.43) H 08/24/23 00:24 RBC 4.06 10^6/uL (3.85-5.65) 08/24/23 00:24 Hgb 13.00 g/dL (11.27-16.99) 08/24/23 00:24 Hct 39.1 % (36-47) 08/24/23 00:24 MCV 96.3 fl (85-98) 08/24/23 00:24 MCH 32.0 pg (27-33) 08/24/23 00:24 MCHC 33.2 g/dL (30-55) 08/24/23 00:24 RDW 15.6 % (12.1-15.1) H 08/24/23 00:24 Plt Count 74 10^3/cmm (157-399) L 08/24/23 00:24 MPV 13.3 fL (7.4-10.4) H 08/24/23 00:24 Neut % (Auto) 94.2 % 08/24/23 00:24 Lymph % (Auto) 4.1 % 08/24/23 00:24 [place] % (Auto) 0.6 % 08/24/23 00:24 Eos % (Auto) 0.0 % 08/24/23 00:24 Baso % (Auto) 0.7 % 08/24/23 00:24 Neut # (Auto) 21.37 10^3/uL (1.8-7.7) H 08/24/23 00:24 Lymph # (Auto) 0.9 10^3/uL (0.8-4.8) 08/24/23 00:24 [place] # (Auto) 0.1 10^3/uL (0.2-0.9) L 08/24/23 00:24 Eos # (Auto) 0.0 10^3/uL (0.0-0.8) 08/24/23 00:24 Baso # (Auto) 0.2 10^3/uL (0.0-0.1) H 08/24/23 00:24 Nucleated RBC % (auto) 0.2 % 08/24/23 00:24 Total Counted 100 (0-100) 08/23/23 04:04 Atypical Lymphs % 0.0 % (0-5) 08/23/23 04:04 Absolute Neutrophils 16.8 10^3/cmm (1.4-6.5) H 08/23/23 04:04 Segmented Neutrophils 70 % 08/23/23 04:04 Abs Segm Neuts (Man) 14.3 10/cmm (1.6-7.1) H 08/23/23 04:04 Band Neutrophils 12.0 % 08/23/23 04:04 Abs Band Neuts (Man) 2.5 10^3/cmm (0.0-1.2) H 08/23/23 04:04 Absolute Lymphocytes 2.0 10^3/cmm (1.2-3.4) 08/23/23 04:04 Lymphocytes (Manual) 10 % 08/23/23 04:04 Monocytes (Manual) 0.0 % 08/23/23 04:04 Absolute Monocytes 0.0 10^3/cmm (0.1-0.6) L 08/23/23 04:04 Eosinophils (Manual) 0 % 08/23/23 04:04 Absolute Eosinophils 0.0 10^3/cmm (0.0-0.7) 08/23/23 04:04 Basophils (Manual) 0.0 % 08/23/23 04:04 Absolute Basophils 0.0 10^3/cmm (0.0-0.2) 08/23/23 04:04 Metamyelocytes 8.0 % 08/23/23 04:04 Nucleated RBCs # 0.0 /100WBC 08/24/23 00:24 Platelet Estimate Decreased (Normal) L 08/23/23 04:04 PT 30.70 SECONDS (12.1-14.9) H 08/24/23 00:24 INR 2.81 (0.8-1.2) H 08/24/23 00:24 APTT 122.6 SECONDS (23.9-36.7) H 08/23/23 08:17 Fibrinogen 565 mg/dL (174-498) H 08/22/23 16:52 D-Dimer 2.60 ug/mLFEU (0-0.59) H 08/22/23 16:52 Specimen Type Arterial 08/24/23 04:20 Sample Site Brachial, right 08/24/23 04:20 ABG pH 7.45 (7.35-7.45) 08/24/23 04:20 ABG pCO2 28.0 mmHg (35-45) L 08/24/23 04:20 ABG pO2 96.8 mmHg (80.0-100.0) 08/24/23 04:20 ABG PO2/FiO2 Ratio 0 08/24/23 04:20 ABG HCO3 19.6 mmol/L (22-26) L 08/24/23 04:20 ABG O2 Saturation 93.2 08/22/23 14:53 ABG Base Excess -2.9 mmol/L (-2.0-2.0) L 08/24/23 04:20 Cody Test N/a 08/24/23 04:20 A-a O2 Gradient 41.4 mmHg (5-10) H 08/22/23 14:53 Hematocrit 45.7 % (37-47) 08/24/23 04:20 Hgb O2 Saturation 91.3 % (95-100) L 08/22/23 14:53 Carboxyhemoglobin 1.0 %THgb (0.4-20.1) 08/22/23 14:53 Methemoglobin 1.0 % (0.4-1.5) 08/22/23 14:53 Total Hemoglobin 14.3 g/dL (12-16) 08/22/23 14:53 Sodium 156.0 mmol/L (131-143) H 08/22/23 14:53 Potassium 2.3 mmol/L (3.5-5.0) L 08/22/23 14:53 Glucose 322.0 mg/dL (70-115) H 08/22/23 14:53 Ionized Calcium 1.1 mmol/L (1.1-1.4) 08/22/23 14:53 O2 Delivery Device Vent 08/24/23 04:20 FiO2 80.0 % 08/24/23 04:20 Tidal Volume 0.35 08/24/23 04:20 PEEP 8.0 cmH20 08/24/23 04:20 Entry Level Finance ID Davin 08/24/23 04:20 Sodium 146 mmol/L (136-145) H 08/24/23 03:22 Potassium 5.0 mmol/L (3.5-5.1) 08/24/23 03:22 Chloride 115 mmol/L (98-107) H 08/24/23 03:22 Carbon Dioxide 20 mmol/L (22-29) L 08/24/23 03:22 Anion Gap 16.0 (5-19) 08/24/23 03:22 BUN 42 mg/dL (8-23) H 08/24/23 03:22 Creatinine 1.5 mg/dL (0.5-0.9) H 08/24/23 03:22 GFR Calculation Not Reportable 08/24/23 03:22 Glucose 191 mg/dL (65-115) H 08/24/23 03:22 POC Glucose 167 mg/dL (70-110) H 08/24/23 11:18 Estimat Average Glucose 212 08/22/23 17:00 Hemoglobin A1c 9.0 % (4.0-6.0) H 08/22/23 17:00 Calculated Osmolality 318 mOsm/kg (285-295) H 08/24/23 03:22 Lactic Acid 12.6 mmol/L (0.5-2.2) H* 08/22/23 12:52 Lactic Acid (Sepsis) 6.7 mmol/L (0.5-2.2) H* 08/22/23 16:39 Lactate 3.9 mmol/L (0.5-2.2) H 08/24/23 00:24 Calcium 7.6 mg/dL (8.5-10.5) L 08/24/23 03:22 Phosphorus 1.2 mg/dL (2.5-4.5) L 08/24/23 03:22 Magnesium 1.9 mg/dL (1.7-2.3) 08/24/23 03:22 Total Bilirubin 0.4 mg/dL (0.15-1.2) 08/24/23 03:22 AST 118 U/L (0-32) H 08/24/23 03:22 ALT 96 U/L (0-33) H 08/24/23 03:22 Alkaline Phosphatase 138 U/L (35-105) H 08/24/23 03:22 Creatine Kinase 194 U/L (26-192) H 08/24/23 00:24 Troponin T Baseline 479 ng/L (0-10) H* 08/22/23 12:52 Troponin T 120 Minute 437.6 ng/L (0-10) H 08/22/23 15:17 Delta Troponin T -41.4 ABS# (0-10) L 08/22/23 15:17 Troponin T Hi Sens 6Hr 363.6 ng/L (0-10) H 08/22/23 19:25 Troponin T Hi Sens 6Hr Delta -115.4 ng/L (0-12) L 08/22/23 19:25 C-Reactive Protein 179.6 mg/L (0.0-4.9) H 08/24/23 03:22 NT-Pro-B Natriuret Pep 4232 pg/mL (0-450) H 08/24/23 03:22 Total Protein 5.0 g/dL (6.6-8.7) L 08/24/23 03:22 Albumin 1.9 g/dL (3.5-5.2) L 08/24/23 03:22 Globulin 3.1 g/dL (1.3-4.6) 08/24/23 03:22 Triglycerides 171 mg/dL (0-150) H 08/22/23 17:00 Cholesterol 96 mg/dL (0-200) 08/22/23 17:00 LDL Cholesterol, Calc 48 mg/dL (50-129) L 08/22/23 17:00 HDL Cholesterol 14 mg/dL (60-100) L 08/22/23 17:00 LDL/HDL Ratio 3.43 RATIO (0.00-3.22) H 08/22/23 17:00 Cholesterol/HDL Ratio 6.86 mg/dL (0.0-4.40) H 08/22/23 17:00 Lipase 76 U/L (13-60) H 08/22/23 12:52 Procalcitonin 32.41 ng/mL (0-0.5) H 08/24/23 00:24 TSH 0.37 uIU/mL (0.27-4.20) 08/22/23 17:00 Random Cortisol 23.54 ug/dL (2.47-19.5) H 08/22/23 19:25 Urine Color Dark yellow (Yellow) 08/22/23 13:05 Urine Appearance Cloudy (CLEAR) A 08/22/23 13:05 Urine pH 5 (5-7) 08/22/23 13:05 Ur Specific [place] 1.020 (1.005-1.030) 08/22/23 13:05 Urine Protein Trace (Negative) 08/22/23 13:05 Urine Glucose (UA) Norm (Normal) 08/22/23 13:05 Urine Ketones Negative (Negative) 08/22/23 13:05 Urine Blood Neg (Negative) 08/22/23 13:05 Urine Nitrate Negative (Negative) 08/22/23 13:05 Urine Bilirubin 1+ (Negative) H 08/22/23 13:05 Urine Urobilinogen 1 mg/dL (Negative) H 08/22/23 13:05 Ur Leukocyte Esterase Negative (Negative) 08/22/23 13:05 Urine RBC 0-4 /hpf (0-2) H 08/22/23 13:05 Urine WBC 0-4 /hpf (0-5) H 08/22/23 13:05 Ur Squamous Epith Cells 0-4 /hpf (0-5) H 08/22/23 13:05 Amorphous Sediment Not Reportable 08/22/23 13:05 Urine Bacteria 1+ /hpf (NONE) H 08/22/23 13:05 Hyaline Casts 10-15 /lpf H 08/22/23 13:05 Nasal Influ A H1 2009 PCR Not detected (NOT DETECT) 08/23/23 07:35 Bronch Specimen Source Left lower lobe 08/24/23 09:50 Bronchial Fluid Color Slight pink 08/24/23 09:50 Bronchial Fluid Appearance Cloudy (CLEAR) 08/24/23 09:50 Bronch Cells Counted 200 08/24/23 09:50 Bronchial Neutrophils 45.00 % (0.9-2.3) H 08/24/23 09:50 Bronchial Lymphocytes 45.00 % (10.71-12.91) H 08/24/23 09:50 Bronchial Macrophages 10.00 % (83.6-86.8) L 08/24/23 09:50 Serum Ketones Negative (Negative) 08/22/23 17:00 Adenovirus (PCR) Not detected (NOT DETECT) 08/23/23 07:35 C. pneumoniae DNA (PCR) Not detected (NOT DETECT) 08/23/23 07:35 Coronavirus 229E (PCR) Not detected (NOT DETECT) 08/23/23 07:35 Human Metapneumovir PCR Not detected (NOT DETECT) 08/23/23 07:35 Influenza A (H1) PCR Not detected (NOT DETECT) 08/23/23 07:35 Influenza A (H3) PCR Not detected (NOT DETECT) 08/23/23 07:35 Influenza Type A Ag negative (Negative) 08/22/23 13:44 Influenza Type A (PCR) Not detected (NOT DETECT) 08/23/23 07:35 Influenza Type B Ag negative (Negative) 08/22/23 13:44 Influenza Type B (PCR) Not detected (NOT DETECT) 08/23/23 07:35 M. pneumoniae (PCR) Not detected (NOT DETECT) 08/23/23 07:35 Parainfluenza 1 (PCR) Not detected (NOT DETECT) 08/23/23 07:35 Parainfluenza 2 (PCR) Not detected (NOT DETECT) 08/23/23 07:35 Parainfluenza 3 (PCR) Not detected (NOT DETECT) 08/23/23 07:35 Parainfluenza 4 (PCR) Not detected (NOT DETECT) 08/23/23 07:35 RSV Type A (PCR) Not detected (NOT DETECT) 08/23/23 07:35 RSV Type B (PCR) Not detected (NOT DETECT) 08/23/23 07:35 Entero/Rhino (PCR) Not detected (NOT DETECT) 08/23/23 07:35 SARS-CoV-2 (PCR) Detected (NOT DETECT) A 08/23/23 07:35 Micro: Microbiology 08/22/23 Unknown Gram Stain - Final Sputum - Endotracheal Tube Aspirate Sputum Culture - Preliminary Coag positive Staphylococcus 08/22/23 12:53 Blood Culture - Preliminary Blood NEGATIVE TO DATE 08/22/23 12:52 Blood Culture - Preliminary Blood NEGATIVE TO DATE A&P Assessment and plan (1) Altered mental status: Qualifiers: Altered mental status type: unspecified Qualified Code(s): R41.82 - Altered mental status, unspecified (2) Acute hypoxic respiratory failure: (3) Septic shock: (4) Collapse of left lung: (5) Aspiration pneumonia: Qualifiers: Aspiration pneumonia type: due to vomit Laterality: left Lung location: lower lobe of lung Qualified Code(s): J69.0 - Pneumonitis due to inhalation of food and vomit (6) Diabetic ketoacidosis: Qualifiers: Diabetes mellitus type: type 2 Diabetes mellitus complication detail: w ith coma Qualified Code(s): E11.11 - Type 2 diabetes mellitus with ketoacidosis with coma (7) Hypernatremia: (8) Hypokalemia: (9) Acute renal failure: Qualifiers: Acute renal failure type: unspecified Qualified Code(s): N17.9 - Acute kidney failure, unspecified (10) NSTEMI (non-ST elevated myocardial infarction): (11) Lactic acidosis: (12) Uncontrolled diabetes mellitus: Qualifiers: Diabetes mellitus type: type 2 Glycemic state: with hyperglycemia Qualified Code(s): E11.65 - Type 2 diabetes mellitus with hyperglycemia Plan ASSESSMENT/PLAN:Overall: 82-year-old elderly lady with past medical history of diabetes noncompliant, A- fib with RVR-presented to ER being unresponsive likely secondary to DKA likely due to non compliant with treatments and aspiration pneumonia. Patient is also in hypovolemic/septic shock, hypernatremia. NEURO: # Altered mental status-secondary to DKA/sepsis/hypernatremia -Head CT 08/22/2023-no acute changes -Sedated with fentanyl and Versed -Treat underlying sepsis/hypernatremia PULM: # Acute respiratory failure-likely secondary to aspiration pneumonia -Intubated and sedated -Currently on CMV 350/PEEP 5/and FiO2 60%-ABG 7.32/36/63/18/91% -CT chest showed left lower lobe collapse likely secondary to fluid and secretions; review of her CT chest report from 08/09/2023 at [facility]-showed mild tubular bronchiectasis but did not show any lung collapse. So malignancy unlikely -Patient covered with meropenem and vancomycin-she has penicillin allergy -We will defer bronchoscopy for now as patient is still in A-fib RVR CVS: # Shock-sepsis versus hypovolemic -Currently on Levophed 6 mg- -She received total 3 L normal saline -Current recovered with antibiotics for suspected aspiration pneumonia -Monitor blood pressure, lactic acid -Target MAP > 65 -Significantly elevated BNP-will obtain echocardiogram # Troponinemia-likely secondary to demand ischemia -Initial troponin 478-2 hours later 437?troponin -41 -EKG no ST-T wave changes -We can discontinue heparin # A-fib with RVR -Patient is on amiodarone drip -will start her on Eliquis . GI: # Diet: N.p.o. for now # GI prophylaxis: PPI RENAL: # Anion gap acidosis-improving -Likely due to lactic acidosis secondary to septic shock -Serum ketones are negative-this likely DKA -She received 3 L of IV fluids and currently on Levophed 6 mcg # GISELLA-likely secondary to prerenal-hypovolemia -Monitor renal functions closely -Patient is receiving IV fluids as well as pressor support to maintain MAP greater than 65 # Hypokalemia 2.6-resolved -Currently receiving IV KCl supplementation -Monitor potassium -Currently on insulin infusion # Hypovolemic Hypernatremia -Sodium 153 - -Currently she is getting D5 half NS with potassium supplementation -Monitor sodium every 4 hours HEM: # DVT prophylaxis: Currently on heparin-will switch to Eliquis to cover for A- fib RVR ENDO: # Diabetes mellitus-patient not on medications # Serum ketones are negative-less likely DKA - on IV insulin -Closely monitor electrolytes, glucose, anion gap ID: # Likely patient in septic shock secondary to aspiration pneumonia -She has been vomiting for last couple of weeks -CT chest 08/22/2023 showed left lower lobe atelectasis and consolidation likely secondary to aspirated material (CT chest report from [facility] 08/08/2023-did not show any abnormality -Hence less likely malignancy) -Blood cultures, sputum cultures-pending -Currently patient is on vancomycin and meropenem Code Status: DNR/DNI Disposition: ICU Critically ill:Yes MD discussed with: ED physician, hospitalist taking care of the patient, RN, RT ICU CHECKLIST: Problem list updated Verbal orders reviewed and signed Analgesia: Fentanyl Glycemic Control: Will put her on scale coverage Nutrition: N.p.o. for now Restraint Renewal (within 24 hrs): Yes Ulcer Prophylaxis: PPI Chemical Thromboprophylaxis: Prophylaxis:Heparin Mechanical Thromboprophylaxis: SCDs Need for Central line: Right subclavian Need for Valenzuela catheter: Yes Family updated: Yes Attestations 2 Medical Necessity Statement*: Still intubated, septic shock-need close ICU monitoring Time Spent in Patient Care: Greater than 35 minutes (>than 50% of time spent in counselling and/or direct pt care on unit) . Critical Care Time: The high probability of a clinically significant, sudden or life threatening deterioration of the patient's [Neurology, pulmonary, cardiac, renal, endocrine, infectious] system(s) required my full and direct attention, intervention and personal management. The critical care time is as shown. This time is in addition to time spent performing any reported procedures but includes the following: [x] Data and vital sign review and interpretation [x] Patient assessment, examination and intervention [x] Documentation [x] Medication orders and management Critical Care Time (min): 64 Coding Level of Care Code Acute Code for Chg Fwd Diagnoses Altered mental status, unspecified altered mental status type R41.82 Altered mental status type: unspecified Acute hypoxic respiratory failure J96.01 Septic shock A41.9; R65.21 Collapse of left lung J98.11 Aspiration pneumonia of left lower lobe due to vomit J69.0 Aspiration pneumonia type: due to vomit Laterality: left Lung location: lower lobe of lung Diabetic ketoacidosis with coma associated with type 2 diabetes mellitus E11.11 Diabetes mellitus type: type 2 Diabetes mellitus complication detail: with coma Hypernatremia E87.0 Hypokalemia E87.6 Acute renal failure, unspecified acute renal failure type N17.9 Acute renal failure type: unspecified NSTEMI (non-ST elevated myocardial infarction) I21.4 Lactic acidosis E87.20 Uncontrolled type 2 diabetes mellitus with hyperglycemia E11.65 Diabetes mellitus type: type 2 Glycemic state: with hyperglycemia Time Spent (min) 64
--- NOTE | 2023-08-23 18:03 | P.PN_ITS ---
Subjective 2 Subjective: ? Patient was seen multiple times throughout the morning, afternoon into the evening, ? Seen early in the morning, remains in A-fib with RVR heart rates in the 150s, given amiodarone bolus, ? We will remain heart rates in the 140s to 150s will give digoxin push 2 and 50 mcg ? Currently on low-dose Levophed, remains in shock, ? Has good urine output, creatinine improving, monitor, ? Receiving fluids, ? Patient was found to be COVID-19 positive, likely component COVID-19 pneumonia, started on remdesivir, Decadron ? She was taken off sedation, she does become agitated, moving upper and lower extremities, does not follow commands, placed back on sedation, ? She remains on insulin drip, continue at low rate, anion gap improving, continue to monitor potassium closely, potassium 4.8, ? Remains hypernatremic serum sodium 152, ? Switch from heparin drip to Eliquis, ? Seen in the evening time, still on low-dose Levophed, heart rates in the 120s, atrial fibrillation, remains on 60% FiO2, ? Spoke to patient's son, gave him the updates she remains critically ill, prognosis is guarded, she is on broad-spectrum antibiotic therapy, further sepsis, continue to monitor her A-fib, trying to get it under control, we will continue to monitor closely in ICU, remains currently intubated, sedated, will consider tube feedings based on clinical progress, discussed COVID-19 findings, ? Sputum cultures growing coagulase positive staphylococci ? Spoke to pulmonary critical care, spoke to patient's son, spoke to ER nursing staff Vitals/I&O/Wt Last Vital Signs Temp 98.6 F 08/23/23 10:30 Pulse 153 H 08/23/23 16:30 Resp 20 H 08/23/23 15:40 BP 122/66 08/23/23 16:30 Pulse Ox 93 08/23/23 16:30 O2 Del Method Mechanical Ventilation 08/22/23 17:29 O2 Flow Rate 15 08/22/23 12:15 FiO2 80 08/23/23 15:40 08/23/23 08/23/23 08/23/23 06:59 14:59 22:59 Intake Total 1650.847 / 4858.445 1811.596 / 1811.596 269 / 2080.596 Output Total 1375 / 1375 1375 / 1375 Balance 275.847 / 3483.445 436.596 / 436.596 269 / 705.596 Weight last 48 hrs Weight 39.463 kg Weight 39.463 kg Physical Exam 2 Const: COMMON NORMALS: no acute distress OTHER: Right central line in place, right femoral line in place, endotracheal tube in place, ? Mild mottling of bilateral lower extremities, DP PT pulses diminished, capillary refill greater than 3 seconds, Resp: COMMON NORMALS: normal respiratory effort, No retractions, No use of accessory muscles and clear to auscultation bilaterally AUSCULTATION: clear to auscultation bilaterally Cardio: COMMON NORMALS: S1 normal heart sound present and S2 normal heart sound present RATE: tachycardic RHYTHM: abnormal rhythm irregularly irregular HEART SOUNDS: S1 normal heart sound present and S2 normal heart sound present GI: COMMON NORMALS: Normal to inspection, nondistended, normoactive bowel sounds present and non-tender Extremity: COMMON NORMALS: no pedal edema Data 08/23/23 04:04 08/23/23 12:15 Micro: Microbiology 08/22/23 Unknown Gram Stain - Final Sputum - Endotracheal Tube Aspirate Sputum Culture - Preliminary Coag positive Staphylococcus 08/22/23 12:53 Blood Culture - Preliminary Blood NEGATIVE TO DATE 08/22/23 12:52 Blood Culture - Preliminary Blood NEGATIVE TO DATE A&P Assessment and plan (1) Acute hypoxic respiratory failure: (2) Unresponsiveness: (3) Septic shock: (4) Lactic acidosis: (5) Metabolic acidosis: (6) NSTEMI (non-ST elevated myocardial infarction): (7) Acute renal failure: Qualifiers: Acute renal failure type: unspecified Qualified Code(s): N17.9 - Acute kidney failure, unspecified (8) Hypernatremia: (9) Hypokalemia: (10) Atrial fibrillation with RVR: (11) Increased anion gap metabolic acidosis: (12) Aspiration pneumonia: Qualifiers: Aspiration pneumonia type: due to vomit Laterality: left Lung location: lower lobe of lung Qualified Code(s): J69.0 - Pneumonitis due to inhalation of food and vomit (13) Collapse of left lung: (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 Secondary to aspiration, ? Secondary to left lower lobe lung collapse ? COVID-19 pneumonia ? Plan, ? Continue ICU level monitoring, ? Continue intubation, ? Minimize tidal volume, minimize FiO2, ? Fentanyl, Versed, propofol for sedation, ? Monitor respiratory status closely, ? Continue broad-spectrum tract therapy vancomycin, meropenem, ? On remdesivir, Decadron for COVID-19 pneumonia ? Isolation precautions ? Patient's son tells me that if her condition worsens, she deteriorates on the ventilator, he wants us to proceed with just making her comfortable, and easing her pes and easing her suffering allowing her to pass out comfortably, ? Pulmonary critical care has been consulted, plans on possible bronchoscopy when patient is more stabl COVID-19 pneumonia, ? As above Septic shock, -COVID-19 pneumonia ? Secondary to pneumonia ? Sputum cultures ? Blood cultures, ? Respiratory viral panel, ? Broad-spectrum antibiotic therapy vancomycin, meropenem ? Monitor lactic acid ? Monitor clinical status closely ? Continue Levophed, maintain MAP more than 65, Left lower lobe lung collapse, ? Pulmonary critical care consulted, ? Possible bronchoscopy when patient is more stable, Hypokalemia, resolving Hypernatremia likely sec to dehydration, IV fluids, Diabetic ketoacidosis -Anion gap improving, continue insulin drip, low rate, check BMP every 4 hours monitor potassium ? Once potassium is repleted, and potassium is greater than 3.5 we will start insulin drip ? DKA protocol ? Check BMP every 4 hours, ? Every hour blood sugars, ? IV fluids, A-fib with RVR ? Amiodarone drip, ? Status post amiodarone bolus, status post digoxin -Continue Eliquis NSTEMI, ? Type I versus type II, ? Cannot rule out underlying cardiology given type 2 diabetes mellitus, poorly controlled, ? Cardiac echo, ? Continue eliquis History of nosebleed, monitor as on heparin drip, Increased anion gap metabolic acidosis, ? Multifactorial from sepsis, septic shock, diabetic ketoacidosis, Anorexia, BMI 15.9, Poorly controlled type 2 diabetes mellitus, insulin drip as above Acute renal failure, likely sec to dehydration, nausea, vomiting, diarrhea, diabetic ketoacidosis, sepsis, septic shock ? Monitor urine output, ? Monitor creatinine, monitor potassium, Possible Listeria food poisoning, ? I looked up patient's sons reported ice cream, it is a [employer] brand, home style home style ice cream, ? Its not part of the recall, I also visited the [facility] website, the [place] website and it was not part of the recalls, ? But I will give patient benefit of the doubt, as apparently according to the son he was called and told that she had a Listeria infection I am not sure if this was [facility] ? I will get records from [facility] I did call them however their medical record department was closed, ? For now I will place her on meropenem for coverage Goals of care discussion, patient's son tells me that he does not want his mom to get CPR, he does not want to have overly aggressive interventions, if her condition were to deteriorate, he just wants her to be comfortable ? Patient was seen multiple times throughout the morning, afternoon into the evening, ? Seen early in the morning, remains in A-fib with RVR heart rates in the 150s, given amiodarone bolus, ? We will remain heart rates in the 140s to 150s will give digoxin push 2 and 50 mcg ? Currently on low-dose Levophed, remains in shock, ? Has good urine output, creatinine improving, monitor, ? Receiving fluids, ? Patient was found to be COVID-19 positive, likely component COVID-19 pneumonia, started on remdesivir, Decadron ? She was taken off sedation, she does become agitated, moving upper and lower extremities, does not follow commands, placed back on sedation, ? She remains on insulin drip, continue at low rate, anion gap improving, continue to monitor potassium closely, potassium 4.8, ? Remains hypernatremic serum sodium 152, ? Switch from heparin drip to Eliquis, ? Seen in the evening time, still on low-dose Levophed, heart rates in the 120s, atrial fibrillation, remains on 60% FiO2, ? Spoke to patient's son, gave him the updates she remains critically ill, prognosis is guarded, she is on broad-spectrum antibiotic therapy, further sepsis, continue to monitor her A-fib, trying to get it under control, we will continue to monitor closely in ICU, remains currently intubated, sedated, will consider tube feedings based on clinical progress, discussed COVID-19 findings, ? Sputum cultures growing coagulase positive staphylococci ? Spoke to pulmonary critical care, spoke to patient's son, spoke to ER nursing staff Attestations 2 Medical Necessity Statement*: acute hypoxic respiratory failure, A-fib with RVR, NSTEMI, COVID-19 pneumonia, acute respiratory failure, DKA, hyperglycemia, NSTEMI,, PNA, left lung collapse, DKA Coding Level of Care Code Critical Care >/= 30 minutes Critical care time (in minutes): 60 The high probability of a clinically significant, sudden or life threatening deterioration, as referenced in this documentation, required my full and direct attention, intervention and personal management. The critical care time shown is in addition to time spent performing any reported separately billable procedures and includes the following: [x] Data and vital sign review and interpretation [x ] Patient assessment, examination and intervention [x] Medication orders and management [x] Patient/Family updates as able [x] Care Coordination and Documentation. Diagnoses Acute hypoxic respiratory failure J96.01 Unresponsiveness R41.89 Septic shock A41.9; R65.21 Lactic acidosis E87.20 Metabolic acidosis E87.20 NSTEMI (non-ST elevated myocardial infarction) I21.4 Acute renal failure, unspecified acute renal failure type N17.9 Acute renal failure type: unspecified Hypernatremia E87.0 Hypokalemia E87.6 Atrial fibrillation with RVR I48.91 Increased anion gap metabolic acidosis E87.29 Aspiration pneumonia of left lower lobe due to vomit J69.0 Aspiration pneumonia type: due to vomit Laterality: left Lung location: lower lobe of lung Collapse of left lung J98.11 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
[2023-08-23 18:18] LABS: Glucose Point of Care 170 mg/dL (70-110)
[2023-08-23 18:41] LABS: Blood Urea Nitrogen 41 mg/dL (8-23); Carbon Dioxide 17 mmol/L (22-29); Chloride 119 mmol/L (98-107); Glucose 177 mg/dL (65-115); Osmolality Calculated 324 mOsm/kg (285-295); Sodium 150 mmol/L (136-145)
[2023-08-23 18:44] LABS: Phosphorus 0.9 mg/dL (2.5-4.5)
[2023-08-23] MEDS: dexmedeTOMIDine 0.9 % NaCL 400 MCG/100 ML PREMIX IV (20:27)
[2023-08-23 20:45] LABS: Glucose Point of Care 171 mg/dL (70-110)
[2023-08-23 21:26] LABS: Glucose Point of Care 141 mg/dL (70-110)
[2023-08-23 22:29] LABS: Glucose Point of Care 137 mg/dL (70-110)
[2023-08-23 23:57] LABS: Glucose Point of Care 139 mg/dL (70-110)
[2023-08-24] VITALS (61 sets, daily range): BP systolic 88–137; BP diastolic 48–88; PULSE 79–125; RESP 14–28; TEMP 36.3–37.8; O2SAT 93–100
[2023-08-24 00:42] LABS: Basophils # 0.2 10^3/uL (0.0-0.1); Basophils % 0.7 %; Hematocrit 39.1 % (36-47); Lymphocytes # 0.9 10^3/uL (0.8-4.8); Lymphocytes % 4.1 %; Mean Corpuscular HGB Conc 33.2 g/dL (30-55); Mean Corpuscular Volume 96.3 fl (85-98); Mean Platelet Volume 13.3 fL (7.4-10.4); Monocytes # 0.1 10^3/uL (0.2-0.9); Monocytes % 0.6 %; Neutrophils # 21.37 10^3/uL (1.8-7.7); Neutrophils % 94.2 %; Nucleated Red Blood Cells % 0.2 %; Platelet Count 74 10^3/cmm (157-399); Red Blood Count 4.06 10^6/uL (3.85-5.65); Red Cell Distribution Width 15.6 % (12.1-15.1); White Blood Count 22.69 10^3/uL (3.29-11.43)
[2023-08-24 01:08] LABS: Blood Urea Nitrogen 45 mg/dL (8-23); Calcium 7.7 mg/dL (8.5-10.5); Carbon Dioxide 21 mmol/L (22-29); Chloride 114 mmol/L (98-107); Glucose 175 mg/dL (65-115); Osmolality Calculated 318 mOsm/kg (285-295); Slide Review Slide Review Perform; Sodium 146 mmol/L (136-145)
[2023-08-24 01:09] LABS: INR 2.81 (0.8-1.2)
[2023-08-24 01:10] LABS: Lactate (Lactic Acid level) 3.9 mmol/L (0.5-2.2)
[2023-08-24 01:31] LABS: Glucose Point of Care 148 mg/dL (70-110)
[2023-08-24 01:33] LABS: Creatine Phosphokinase 194 U/L (26-192)
[2023-08-24 01:56] LABS: NT Pro B Type Natriuretic Pept 4801 pg/mL (0-450); Procalcitonin 32.41 ng/mL (0-0.5)
[2023-08-24 02:18] LABS: Glucose Point of Care 171 mg/dL (70-110)
[2023-08-24] MEDS: sodium chlor 0.45% +KCl 20 mEq 20 MEQ/1,000 ML BAG 125 MEQ IV ×2 (02:55→10:01)
[2023-08-24 03:25] LABS: Glucose Point of Care 182 mg/dL (70-110)
[2023-08-24] MEDS: fentaNYL 1,000 MCG/100 ML BAG 2.5 MCG IV (03:25)
[2023-08-24 04:42] LABS: Alanine Aminotransferase 96 U/L (0-33); Albumin Level 1.9 g/dL (3.5-5.2); Alkaline Phosphatase 138 U/L (35-105); Aspartate Amino Transferase 118 U/L (0-32); Blood Urea Nitrogen 42 mg/dL (8-23); C Reactive Protein 179.6 mg/L (0.0-4.9); Calcium 7.6 mg/dL (8.5-10.5); Carbon Dioxide 20 mmol/L (22-29); Chloride 115 mmol/L (98-107); Globulin 3.1 g/dL (1.3-4.6); Glucose 191 mg/dL (65-115); Magnesium 1.9 mg/dL (1.7-2.3); Osmolality Calculated 318 mOsm/kg (285-295); Phosphorus 1.2 mg/dL (2.5-4.5); Sodium 146 mmol/L (136-145); Total Bilirubin 0.4 mg/dL (0.15-1.2)
[2023-08-24 04:49] LABS: NT Pro B Type Natriuretic Pept 4232 pg/mL (0-450)
[2023-08-24 04:49] LABS: ABG PH Result 7.45 (7.35-7.45); Arterial Blood Gas Hematocrit 45.7 % (37-47); Base Excess ABG -2.9 mmol/L (-2.0-2.0); Blood Gas Sample Type Arterial; HCO3 ABG 19.6 mmol/L (22-26); PO2 ABG 96.8 mmHg (80.0-100.0)
[2023-08-24 04:50] LABS: Blood Gas Operator Identificat JB; Blood Gas Sample Site Brachial, right; Blood Gas Tidal Volume 0.35; Oxygen Device VENT; PO2 FiO2 Ratio Arterial Blood 0
[2023-08-24 05:18] LABS: Glucose Point of Care 161 mg/dL (70-110)
[2023-08-24 06:15] LABS: Glucose Point of Care 143 mg/dL (70-110)
[2023-08-24] MEDS: norepinephrine 4 MG/250 ML BAG 26.25 MG IV (06:47)
--- NOTE | 2023-08-24 07:00 | XRR_ITS ---
PROCEDURE INFORMATION: Exam: XR Chest Exam date and time: 08/24/2023 5:54 AM Age: 82 years old Clinical indication: Patient HX: F/u covid pneumonia. Intubated. ; Additional info: SOB TECHNIQUE: Imaging protocol: Radiologic exam of the chest. Views: 1 view. COMPARISON: CR (CHEST, ) 08/23/2023 7:44 AM FINDINGS: Tubes, catheters and devices: An endotracheal catheter is noted with its tip approximately 2.4 cm above the juan. An enteric catheter extends to the abdomen, tip not imaged. A right subclavian central venous catheter is noted with its tip overlying the expected course of the superior vena cava. Lungs: The lungs are hyperinflated. There is retrocardiac opacity and increased markings at the right base. Pleural spaces: Unremarkable. No pleural effusion. No pneumothorax. Heart/Mediastinum: Unremarkable. No cardiomegaly. Bones/joints: Unremarkable. XR/XR chest 1V portable [id number] IMPRESSION: Support lines and catheters in place as described. Bibasilar pneumonia, worse on the left.
[2023-08-24] MEDS: meropenem 1,000 MG in sodium chloride 0.9% (plus) 50 ML 100 MG IV (08:15)
[2023-08-24] MEDS: apixaban 5 mg Tablet PO ×2 (08:27→20:42)
--- NOTE | 2023-08-24 08:36 | PC.NURSE ---
repositoned and oral care done heart rate better at this time weaning levophed gtt as tolerated remains on isolation more responsive today .
[2023-08-24 08:46] LABS: Glucose Point of Care 119 mg/dL (70-110)
--- NOTE | 2023-08-24 09:04 | P.PN_ITS ---
Subjective 2 Subjective: -Patient still sedated and intubated. -On minimal pressor support -Chest x-ray still showing bibasilar inf iltrates worse on the left -Heart rate well-controlled with amiodar one drip and digoxin -Performed bronchoscope -showed hyperemi c left lower lobe airways with mucosal thickening and purulent mucoid secretions- BAL sent for cultures -Serum sodium 146 - DC insulin drip, switch to scale cover age, start trickle feeding, change fluid to half NS - Phosphorus 1.2-supplement with Neutra- Phos - Lactic acid, renal functions improving -last 24 hours 2.1 L urine output -Sputum cultures positive for Staph kenzie us-patient covered with vancomycin -COVID PCR positive-patient on airborne and contact isolation - Other labs and imaging reviewed Vitals/I&O/Wt Last Vital Signs Temp 99.5 F 08/24/23 04:00 Pulse 92 08/24/23 08:00 Resp 18 08/24/23 07:00 BP 121/64 08/24/23 08:00 Pulse Ox 98 08/24/23 08:00 O2 Del Method Mechanical Ventilation 08/24/23 04:30 O2 Flow Rate 15 08/22/23 12:15 FiO2 80 08/24/23 08:00 08/23/23 08/24/23 08/24/23 22:59 06:59 14:59 Intake Total 783.460 / 2595.056 1098.808 / 3693.864 Output Total 170 / 1545 600 / 2145 Balance 613.460 / 1050.056 498.808 / 1548.864 Weight last 48 hrs Weight 113 lb 8 oz Weight 87 lb Weight 87 lb Physical Exam 2 Narrative: PHYSICAL EXAM: General: lying in bed, sedated and intubated. HEENT:NCAT, PERRLA, EOMI Neck: Supple Lungs: Reduced breath sounds left lower lung zone Heart: s1/s2, RRR Abd: soft, NT, ND, BS + Normoactive Extremities: No edema SPREADING MACHINE OPERATOR: sedated and limited SPREADING MACHINE OPERATOR exam possible. SKIN: no rash LDA: # CVC: Right subclavian 08/22/2020; right femoral line 08/22/2023 # Valenzuela: 08/22/2023 Data 08/24/23 00:24 08/24/23 03:22 Other Labs: Radiology Impressions Chest X-Ray 08/24/23 07:00 IMPRESSION: Support lines and catheters in place as described. Bibasilar pneumonia, worse on the left. Laboratory Results WBC 22.69 10^3/uL (3.29-11.43) H 08/24/23 00:24 RBC 4.06 10^6/uL (3.85-5.65) 08/24/23 00:24 Hgb 13.00 g/dL (11.27-16.99) 08/24/23 00:24 Hct 39.1 % (36-47) 08/24/23 00:24 MCV 96.3 fl (85-98) 08/24/23 00:24 MCH 32.0 pg (27-33) 08/24/23 00:24 MCHC 33.2 g/dL (30-55) 08/24/23 00:24 RDW 15.6 % (12.1-15.1) H 08/24/23 00:24 Plt Count 74 10^3/cmm (157-399) L 08/24/23 00:24 MPV 13.3 fL (7.4-10.4) H 08/24/23 00:24 Neut % (Auto) 94.2 % 08/24/23 00:24 Lymph % (Auto) 4.1 % 08/24/23 00:24 [place] % (Auto) 0.6 % 08/24/23 00:24 Eos % (Auto) 0.0 % 08/24/23 00:24 Baso % (Auto) 0.7 % 08/24/23 00:24 Neut # (Auto) 21.37 10^3/uL (1.8-7.7) H 08/24/23 00:24 Lymph # (Auto) 0.9 10^3/uL (0.8-4.8) 08/24/23 00:24 [place] # (Auto) 0.1 10^3/uL (0.2-0.9) L 08/24/23 00:24 Eos # (Auto) 0.0 10^3/uL (0.0-0.8) 08/24/23 00:24 Baso # (Auto) 0.2 10^3/uL (0.0-0.1) H 08/24/23 00:24 Nucleated RBC % (auto) 0.2 % 08/24/23 00:24 Total Counted 100 (0-100) 08/23/23 04:04 Atypical Lymphs % 0.0 % (0-5) 08/23/23 04:04 Absolute Neutrophils 16.8 10^3/cmm (1.4-6.5) H 08/23/23 04:04 Segmented Neutrophils 70 % 08/23/23 04:04 Abs Segm Neuts (Man) 14.3 10/cmm (1.6-7.1) H 08/23/23 04:04 Band Neutrophils 12.0 % 08/23/23 04:04 Abs Band Neuts (Man) 2.5 10^3/cmm (0.0-1.2) H 08/23/23 04:04 Absolute Lymphocytes 2.0 10^3/cmm (1.2-3.4) 08/23/23 04:04 Lymphocytes (Manual) 10 % 08/23/23 04:04 Monocytes (Manual) 0.0 % 08/23/23 04:04 Absolute Monocytes 0.0 10^3/cmm (0.1-0.6) L 08/23/23 04:04 Eosinophils (Manual) 0 % 08/23/23 04:04 Absolute Eosinophils 0.0 10^3/cmm (0.0-0.7) 08/23/23 04:04 Basophils (Manual) 0.0 % 08/23/23 04:04 Absolute Basophils 0.0 10^3/cmm (0.0-0.2) 08/23/23 04:04 Metamyelocytes 8.0 % 08/23/23 04:04 Nucleated RBCs # 0.0 /100WBC 08/24/23 00:24 Platelet Estimate Decreased (Normal) L 08/23/23 04:04 PT 30.70 SECONDS (12.1-14.9) H 08/24/23 00:24 INR 2.81 (0.8-1.2) H 08/24/23 00:24 APTT 122.6 SECONDS (23.9-36.7) H 08/23/23 08:17 Fibrinogen 565 mg/dL (174-498) H 08/22/23 16:52 D-Dimer 2.60 ug/mLFEU (0-0.59) H 08/22/23 16:52 Specimen Type Arterial 08/24/23 04:20 Sample Site Brachial, right 08/24/23 04:20 ABG pH 7.45 (7.35-7.45) 08/24/23 04:20 ABG pCO2 28.0 mmHg (35-45) L 08/24/23 04:20 ABG pO2 96.8 mmHg (80.0-100.0) 08/24/23 04:20 ABG PO2/FiO2 Ratio 0 08/24/23 04:20 ABG HCO3 19.6 mmol/L (22-26) L 08/24/23 04:20 ABG O2 Saturation 93.2 08/22/23 14:53 ABG Base Excess -2.9 mmol/L (-2.0-2.0) L 08/24/23 04:20 Cody Test N/a 08/24/23 04:20 A-a O2 Gradient 41.4 mmHg (5-10) H 08/22/23 14:53 Hematocrit 45.7 % (37-47) 08/24/23 04:20 Hgb O2 Saturation 91.3 % (95-100) L 08/22/23 14:53 Carboxyhemoglobin 1.0 %THgb (0.4-20.1) 08/22/23 14:53 Methemoglobin 1.0 % (0.4-1.5) 08/22/23 14:53 Total Hemoglobin 14.3 g/dL (12-16) 08/22/23 14:53 Sodium 156.0 mmol/L (131-143) H 08/22/23 14:53 Potassium 2.3 mmol/L (3.5-5.0) L 08/22/23 14:53 Glucose 322.0 mg/dL (70-115) H 08/22/23 14:53 Ionized Calcium 1.1 mmol/L (1.1-1.4) 08/22/23 14:53 O2 Delivery Device Vent 08/24/23 04:20 FiO2 80.0 % 08/24/23 04:20 Tidal Volume 0.35 08/24/23 04:20 PEEP 8.0 cmH20 08/24/23 04:20 Internet Marketing Intern ID Davin 08/24/23 04:20 Sodium 146 mmol/L (136-145) H 08/24/23 03:22 Potassium 5.0 mmol/L (3.5-5.1) 08/24/23 03:22 Chloride 115 mmol/L (98-107) H 08/24/23 03:22 Carbon Dioxide 20 mmol/L (22-29) L 08/24/23 03:22 Anion Gap 16.0 (5-19) 08/24/23 03:22 BUN 42 mg/dL (8-23) H 08/24/23 03:22 Creatinine 1.5 mg/dL (0.5-0.9) H 08/24/23 03:22 GFR Calculation Not Reportable 08/24/23 03:22 Glucose 191 mg/dL (65-115) H 08/24/23 03:22 POC Glucose 167 mg/dL (70-110) H 08/24/23 11:18 Estimat Average Glucose 212 08/22/23 17:00 Hemoglobin A1c 9.0 % (4.0-6.0) H 08/22/23 17:00 Calculated Osmolality 318 mOsm/kg (285-295) H 08/24/23 03:22 Lactic Acid 12.6 mmol/L (0.5-2.2) H* 08/22/23 12:52 Lactic Acid (Sepsis) 6.7 mmol/L (0.5-2.2) H* 08/22/23 16:39 Lactate 3.9 mmol/L (0.5-2.2) H 08/24/23 00:24 Calcium 7.6 mg/dL (8.5-10.5) L 08/24/23 03:22 Phosphorus 1.2 mg/dL (2.5-4.5) L 08/24/23 03:22 Magnesium 1.9 mg/dL (1.7-2.3) 08/24/23 03:22 Total Bilirubin 0.4 mg/dL (0.15-1.2) 08/24/23 03:22 AST 118 U/L (0-32) H 08/24/23 03:22 ALT 96 U/L (0-33) H 08/24/23 03:22 Alkaline Phosphatase 138 U/L (35-105) H 08/24/23 03:22 Creatine Kinase 194 U/L (26-192) H 08/24/23 00:24 Troponin T Baseline 479 ng/L (0-10) H* 08/22/23 12:52 Troponin T 120 Minute 437.6 ng/L (0-10) H 08/22/23 15:17 Delta Troponin T -41.4 ABS# (0-10) L 08/22/23 15:17 Troponin T Hi Sens 6Hr 363.6 ng/L (0-10) H 08/22/23 19:25 Troponin T Hi Sens 6Hr Delta -115.4 ng/L (0-12) L 08/22/23 19:25 C-Reactive Protein 179.6 mg/L (0.0-4.9) H 08/24/23 03:22 NT-Pro-B Natriuret Pep 4232 pg/mL (0-450) H 08/24/23 03:22 Total Protein 5.0 g/dL (6.6-8.7) L 08/24/23 03:22 Albumin 1.9 g/dL (3.5-5.2) L 08/24/23 03:22 Globulin 3.1 g/dL (1.3-4.6) 08/24/23 03:22 Triglycerides 171 mg/dL (0-150) H 08/22/23 17:00 Cholesterol 96 mg/dL (0-200) 08/22/23 17:00 LDL Cholesterol, Calc 48 mg/dL (50-129) L 08/22/23 17:00 HDL Cholesterol 14 mg/dL (60-100) L 08/22/23 17:00 LDL/HDL Ratio 3.43 RATIO (0.00-3.22) H 08/22/23 17:00 Cholesterol/HDL Ratio 6.86 mg/dL (0.0-4.40) H 08/22/23 17:00 Lipase 76 U/L (13-60) H 08/22/23 12:52 Procalcitonin 32.41 ng/mL (0-0.5) H 08/24/23 00:24 TSH 0.37 uIU/mL (0.27-4.20) 08/22/23 17:00 Random Cortisol 23.54 ug/dL (2.47-19.5) H 08/22/23 19:25 Urine Color Dark yellow (Yellow) 08/22/23 13:05 Urine Appearance Cloudy (CLEAR) A 08/22/23 13:05 Urine pH 5 (5-7) 08/22/23 13:05 Ur Specific [place] 1.020 (1.005-1.030) 08/22/23 13:05 Urine Protein Trace (Negative) 08/22/23 13:05 Urine Glucose (UA) Norm (Normal) 08/22/23 13:05 Urine Ketones Negative (Negative) 08/22/23 13:05 Urine Blood Neg (Negative) 08/22/23 13:05 Urine Nitrate Negative (Negative) 08/22/23 13:05 Urine Bilirubin 1+ (Negative) H 08/22/23 13:05 Urine Urobilinogen 1 mg/dL (Negative) H 08/22/23 13:05 Ur Leukocyte Esterase Negative (Negative) 08/22/23 13:05 Urine RBC 0-4 /hpf (0-2) H 08/22/23 13:05 Urine WBC 0-4 /hpf (0-5) H 08/22/23 13:05 Ur Squamous Epith Cells 0-4 /hpf (0-5) H 08/22/23 13:05 Amorphous Sediment Not Reportable 08/22/23 13:05 Urine Bacteria 1+ /hpf (NONE) H 08/22/23 13:05 Hyaline Casts 10-15 /lpf H 08/22/23 13:05 Nasal Influ A H1 2008 PCR Not detected (NOT DETECT) 08/23/23 07:35 Bronch Specimen Source Left lower lobe 08/24/23 09:50 Bronchial Fluid Color Slight pink 08/24/23 09:50 Bronchial Fluid Appearance Cloudy (CLEAR) 08/24/23 09:50 Bronch Cells Counted 200 08/24/23 09:50 Bronchial Neutrophils 45.00 % (0.9-2.3) H 08/24/23 09:50 Bronchial Lymphocytes 45.00 % (10.71-12.91) H 08/24/23 09:50 Bronchial Macrophages 10.00 % (83.6-86.8) L 08/24/23 09:50 Serum Ketones Negative (Negative) 08/22/23 17:00 Adenovirus (PCR) Not detected (NOT DETECT) 08/23/23 07:35 C. pneumoniae DNA (PCR) Not detected (NOT DETECT) 08/23/23 07:35 Coronavirus 229E (PCR) Not detected (NOT DETECT) 08/23/23 07:35 Human Metapneumovir PCR Not detected (NOT DETECT) 08/23/23 07:35 Influenza A (H1) PCR Not detected (NOT DETECT) 08/23/23 07:35 Influenza A (H3) PCR Not detected (NOT DETECT) 08/23/23 07:35 Influenza Type A Ag negative (Negative) 08/22/23 13:44 Influenza Type A (PCR) Not detected (NOT DETECT) 08/23/23 07:35 Influenza Type B Ag negative (Negative) 08/22/23 13:44 Influenza Type B (PCR) Not detected (NOT DETECT) 08/23/23 07:35 M. pneumoniae (PCR) Not detected (NOT DETECT) 08/23/23 07:35 Parainfluenza 1 (PCR) Not detected (NOT DETECT) 08/23/23 07:35 Parainfluenza 2 (PCR) Not detected (NOT DETECT) 08/23/23 07:35 Parainfluenza 3 (PCR) Not detected (NOT DETECT) 08/23/23 07:35 Parainfluenza 4 (PCR) Not detected (NOT DETECT) 08/23/23 07:35 RSV Type A (PCR) Not detected (NOT DETECT) 08/23/23 07:35 RSV Type B (PCR) Not detected (NOT DETECT) 08/23/23 07:35 Entero/Rhino (PCR) Not detected (NOT DETECT) 08/23/23 07:35 SARS-CoV-2 (PCR) Detected (NOT DETECT) A 08/23/23 07:35 Micro: Microbiology 08/22/23 Unknown Gram Stain - Final Sputum - Endotracheal Tube Aspirate Sputum Culture - Preliminary Coag positive Staphylococcus 08/22/23 12:53 Blood Culture - Preliminary Blood NEGATIVE TO DATE 08/22/23 12:52 Blood Culture - Preliminary Blood NEGATIVE TO DATE A&P Assessment and plan (1) Altered mental status: Qualifiers: Altered mental status type: unspecified Qualified Code(s): R41.82 - Altered mental status, unspecified (2) Acute hypoxic respiratory failure: (3) Septic shock: (4) Collapse of left lung: (5) Aspiration pneumonia: Qualifiers: Aspiration pneumonia type: due to vomit Laterality: left Lung location: lower lobe of lung Qualified Code(s): J69.0 - Pneumonitis due to inhalation of food and vomit (6) Diabetic ketoacidosis: Qualifiers: Diabetes mellitus type: type 2 Diabetes mellitus complication detail: w ith coma Qualified Code(s): E11.11 - Type 2 diabetes mellitus with ketoacidosis with coma (7) Hypernatremia: (8) Acute renal failure: Qualifiers: Acute renal failure type: unspecified Qualified Code(s): N17.9 - Acute kidney failure, unspecified (9) NSTEMI (non-ST elevated myocardial infarction): (10) Lactic acidosis: (11) Uncontrolled diabetes mellitus: Qualifiers: Diabetes mellitus type: type 2 Glycemic state: with hyperglycemia Qualified Code(s): E11.65 - Type 2 diabetes mellitus with hyperglycemia (12) Staphylococcus aureus pneumonia: (13) Pneumonia due to COVID-19 virus: (14) Hypophosphatemia: Plan ASSESSMENT/PLAN:Overall: 82-year-old elderly lady with past medical history of diabetes noncompliant, A- fib with RVR-presented to ER being unresponsive likely secondary to DKA likely due to non compliant with treatments and aspiration pneumonia. Patient is also in hypovolemic/septic shock, hypernatremia. NEURO: # Altered mental status-secondary to DKA/sepsis/hypernatremia -Head CT 08/22/2023-no acute changes -Sedated with fentanyl and Versed; recommended to discontinue Versed on start Precedex -Will start doing awakening trial from tomorrow -Treat underlying sepsis/hypernatremia PULM: # Acute respiratory failure-likely secondary to aspiration pneumonia # Staph aureus pneumonia #COVID-19 PCR antigen positive -Intubated and sedated -Currently on CMV 350/PEEP 10/and FiO2 80%-ABG 7.4 02/16/ -CT chest showed left lower lobe collapse likely secondary to fluid and secretions; review of her CT chest report from 08/09/2023 at [facility]-showed mild tubular bronchiectasis but did not show any lung collapse. So malignancy unlikely -Chest x-ray still showing bibasilar infiltrates worse on the left -Heart rate well-controlled with amiodarone drip and digoxin -Performed bronchoscope 08/24/2023-showed hyperemic left lower lobe airways with mucosal thickening and purulent mucoid secretions- BAL sent for cultures -Sputum cultures positive for Staph aureus-Patient covered with meropenem and vancomycin-she has penicillin allergy -COVID PCR positive-patient on airborne and contact isolation CVS: # Shock-sepsis versus hypovolemic -Currently on minimal pressor support -Current recovered with antibiotics for staph pneumonia -Monitor blood pressure, lactic acid -Target MAP > 65 -Significantly elevated BNP -Echocardiogram 08/23/2023-normal LV function # Troponinemia-likely secondary to demand ischemia -Initial troponin 478-2 hours later 437?troponin -41 -EKG no ST-T wave changes -We can discontinue heparin # A-fib with RVR -Patient is on amiodarone drip and digoxin - on Eliquis . GI: # Diet: Start trickle feeding # GI prophylaxis: PPI RENAL: # Anion gap acidosis-improving -Likely due to lactic acidosis secondary to septic shock-improving -Serum ketones are negative-this likely DKA -There is hyperchloremic acidosis component as well-I am going to hold IV fluids # GISELLA-likely secondary to [id number] -Monitor renal functions closely -Patient is receiving IV fluids as well as pressor support to maintain MAP greater than 65 # Hypernatremia -Sodium 153 down to 146 -Will hold off IV fluids -Monitor sodium every 4 hours # Hypophosphatemia -Will give Neutra-Phos -Monitor phosphorus HEM: # DVT prophylaxis: Currently on heparin-will switch to Eliquis to cover for A- fib RVR ENDO: # Diabetes mellitus-patient not on medications # Serum ketones are negative-less likely DKA - on IV insulin-will discontinue IV insulin and switch to scale coverage -Closely monitor electrolytes, glucose, anion gap ID: # Likely patient in septic shock secondary to aspiration pneumonia -She has been vomiting for last couple of weeks -CT chest 08/22/2023 showed left lower lobe atelectasis and consolidation likely secondary to aspirated material (CT chest report from [facility] 08/08/2023-did not show any abnormality -Hence less likely malignancy) -Performed bronchoscope 08/24/2023-showed hyperemic left lower lobe airways with mucosal thickening and purulent mucoid secretions- BAL sent for cultures -Sputum cultures positive for Staph aureus-Patient covered with meropenem and vancomycin-she has penicillin allergy -COVID PCR positive-patient on airborne and contact isolation Code Status: DNR/DNI Disposition: ICU Critically ill:Yes MD discussed with: ED physician, hospitalist taking care of the patient, RN, RT ICU CHECKLIST: Problem list updated Verbal orders reviewed and signed Analgesia: Fentanyl Glycemic Control: Will put her on scale coverage Nutrition: N.p.o. for now Restraint Renewal (within 24 hrs): Yes Ulcer Prophylaxis: PPI Chemical Thromboprophylaxis: Prophylaxis:Heparin Mechanical Thromboprophylaxis: SCDs Need for Central line: Right subclavian Need for Valenzuela catheter: Yes Family updated: Yes Attestations 2 Medical Necessity Statement*: Still intubated, septic shock-need close ICU monitoring Time Spent in Patient Care: Greater than 35 minutes (>than 50% of time spent in counselling and/or direct pt care on unit) . Critical Care Time: The high probability of a clinically significant, sudden or life threatening deterioration of the patient's [Neurology, pulmonary, cardiac, renal, endocrine, infectious] system(s) required my full and direct attention, intervention and personal management. The critical care time is as shown. This time is in addition to time spent performing any reported procedures but includes the following: [x] Data and vital sign review and interpretation [x] Patient assessment, examination and intervention [x] Documentation [x] Medication orders and management Critical Care Time (min): 74 Coding Level of Care Code Acute Code for g Fwd Diagnoses Altered mental status, unspecified altered mental status type R41.82 Altered mental status type: unspecified Acute hypoxic respiratory failure J96.01 Septic shock A41.9; R65.21 Collapse of left lung J98.11 Aspiration pneumonia of left lower lobe due to vomit J69.0 Aspiration pneumonia type: due to vomit Laterality: left Lung location: lower lobe of lung Diabetic ketoacidosis with coma associated with type 2 diabetes mellitus E11.11 Diabetes mellitus type: type 2 Diabetes mellitus complication detail: with coma Hypernatremia E87.0 Acute renal failure, unspecified acute renal failure type N17.9 Acute renal failure type: unspecified NSTEMI (non-ST elevated myocardial infarction) I21.4 Lactic acidosis E87.20 Uncontrolled type 2 diabetes mellitus with hyperglycemia E11.65 Diabetes mellitus type: type 2 Glycemic state: with hyperglycemia Staphylococcus aureus pneumonia J15.211 Pneumonia due to COVID-19 virus U07.1; J12.82 Hypophosphatemia E83.39 Time Spent (min) 74
[2023-08-24] MEDS: phosphorus 250 mg Tablet PO ×2 (10:01→17:10)
--- NOTE | 2023-08-24 10:02 | P.PCN_ITS ---
Procedure/Consent Time out: Time Out Performed: Yes Consent: Consent for Procedure: Consent obtained from other (indicate) Procedure Narrative: Procedure : 53023 Dx Bronchoscope w/Washings or ai rway inspection 74331 Dx Bronchoscope w/BAL 26505 Bronchoscopy w/ therapeutic aspi ration of the tracheobronchial tree (clearance of airway secretions, removal of mucus plugs) Pre-Operative Diagnosis: Pneumonia Post-Operative Diagnosis: Same Indication: Left lower lobe atelectasis on CT chest Brief History: 82-year-old female with past medical his tory of uncontrolled diabetes-admitted for A-fib RVR, septic shock likely secondary to aspiration pneumonia. Her admission CT showed left lower lobe atelectasis. Chest x-ray continues to show atelectasis. Today her heart rate is well-controlled. Will proceed with bronchoscopic inspection and obtaining BAL at bedside. Consent: Consents were obtained from [facility] over phone and placed in the chart Pre-procedure Evaluation: Patient was evaluated clinically and ancillary testing reviewed. ASA: 4 Malampati score: unable to evaluate due to presence of endotracheal tube Indication: Worsening infiltrates mostly on left side on chest x-ray : [address] chest showed left lower lobe atelectasis Time out: Performed by the procedure team and nursing staff. Vent support maintained on Fio2 100. Anesthesia: Patient is already intubated and sedated with fentanyl 25 mcg/hour. Given fentanyl 25 Mg IV push and Versed 2 Mg IV push Local anesthesia: The juan in the right and left mainstem bronchi were anesth etized with 1% lidocaine, 6 mL. Summary of Significant Findings: -Bronchoscope passed through ET tube us ed for initial inspection (88763) and airway clearance. The scope was advanced through the ET tube. The lower trachea mucosa appeared normal, no endotracheal lesion was seen. The juan was sharp. The juan, the right and left mainstem bronchi are anesthetized with 1% lidocaine. In a systematic manner bilateral bronchial tree was then examined. There were copious amount of mucopurulent secretions seen in the distal trachea and bi lateral mainstem bronchi The bronchoscope advanced into the right mainstem bronchus. There were mucopurulent secretions along the right tracheobronchial tree. The scope was advanced and airways were examined up to the third subsegmental level and no abnormalities were identified. The mucosa appeared normal with no endobronchial lesions, or active bleeding. There were some secretions which were suctioned right away([id number]) The bronchoscope was then advanced into the left mainstem bronchus. Again mucopurulent secretions noted all through the left tracheobronchial tree. The mucosa appeared hyperemic; particularly worse in left lower lobe subsegments with mucosal edema. The left upper lobe, lingula no abnormalities were identified. There are no mucous plugs, endobronchial lesions, active bleeding. Some thick mucus secretions in lower lobe were suctioned right away.([id number]) BAL obtained from Left lower lobe the bronchoscope was then removed and the procedure terminated. Estimated Blood Loss: None Specimens: Bronchoalveolar lavage (19174) from left lower lobe sent for cu ltures, wash analysis Complications:None; patient tolerated the procedure well. Disposition: Patient remains critically ill, intubated and stays in ICU Surgeon: Iban Hodge MD, [facility] Pulmonary critical Care Medicine [facility] Acute Procedures Epistaxis Control: Time out performed: Yes
--- NOTE | 2023-08-24 10:41 | PC.NURSE ---
doctor datar here exam pt bronchoschpy done at bedside specimen sent down to lab ,, reposition at this time
--- NOTE | 2023-08-24 11:37 | PM.PN ---
Subjective Subjective: Patient still sedated and intubated. Her heart rate improved in the upper 80s to 90s atrial fibrillation on amiodarone. Blood pressure stable on low-dose Levophed. Echocardiogram today showed normal LV function Vitals/I&O/Wt Last Vital Signs Temp 99.5 F 08/24/23 04:00 Pulse 92 08/24/23 08:00 Resp 28 H 08/24/23 10:49 BP 121/64 08/24/23 08:00 Pulse Ox 97 08/24/23 10:49 O2 Del Method Mechanical Ventilation 08/24/23 04:30 O2 Flow Rate 15 08/22/23 12:15 FiO2 70 08/24/23 10:49 08/23/23 08/24/23 08/24/23 22:59 06:59 14:59 Intake Total 783.460 / 2595.056 1098.808 / 3693.864 937.5 / 937.5 Output Total 170 / 1545 600 / 2145 Balance 613.460 / 1050.056 498.808 / 1548.864 937.5 / 937.5 Weight last 48 hrs Weight 113 lb 8 oz Weight 87 lb Weight 87 lb Physical Exam Narrative: Patient is intubated and sedated. Resp: AUSCULTATION: rhonchi and diminished lung sounds Cardio: RHYTHM: abnormal rhythm OTHER: Consistent with atrial fibrillation. Heart rate improved Extremity: OTHER: No edema Neuro: OTHER: Intubated sedated Data 08/24/23 00:24 08/24/23 03:22 Micro: Microbiology 08/22/23 Unknown Gram Stain - Final Sputum - Endotracheal Tube Aspirate Sputum Culture - Preliminary Coag positive Staphylococcus 08/22/23 12:53 Blood Culture - Preliminary Blood NEGATIVE TO DATE 08/22/23 12:52 Blood Culture - Preliminary Blood NEGATIVE TO DATE A&P Assessment and plan (1) Atrial fibrillation with RVR: Rate still not fairly controlled I will continue on IV amiodarone add digoxin as needed. echocardiogram showed normal LV function. Without significant valvular disease within study limitation. Continue. IV amiodarone eventually will need to switch to p.o. once she is extubated and taken to p.o. (2) NSTEMI (non-ST elevated myocardial infarction): Continue IV heparin her troponin is trending down. Patient is not candidate for any invasive therapy at this time. Continue medical therapy as tolerated. Overall prognosis are poor in light of her multi organ failure superimposed COVID infection (3) Septic shock: Still hypotensive requiring pressors continue IV fluids. Management per hospitalist (4) Acute hypoxic respiratory failure: On ventilator managed by ICU MD Attestations Medical Necessity Statement*: Patient still requiring IV pressors and is on ventilator Coding Level of Care Code Acute Code for [facility] Diagnoses Atrial fibrillation with RVR I48.91 NSTEMI (non-ST elevated myocardial infarction) I21.4 Septic shock A41.9; R65.21 Acute hypoxic respiratory failure J96.01
[2023-08-24 11:52] LABS: Glucose Point of Care 167 mg/dL (70-110)
[2023-08-24 12:20] LABS: Total Cells Counted Bronch 200
[2023-08-24 12:21] LABS: Apprearance, Bronch Wash Cloudy (CLEAR); Color, Bronc Wash Slight Pink
[2023-08-24] MEDS: remdesivir 100 MG in sodium chloride 0.9% (100 ml) 80 ML IV (14:13)
[2023-08-24] MEDS: norepinephrine 4 MG/250 ML BAG 22.5 MG IV (16:13)
--- NOTE | 2023-08-24 16:20 | P.PN_ITS ---
Subjective 2 Subjective: Patient when seen early this morning, spoke with pulmonary critical care, spoke to respiratory staff, spoke to nursing staff, I seen early this morning, currently in A-fib, heart rates are well controlled, 80s to 90s, on amiodarone drip, ? Remains on Levophed, at 6, ? Remains intubated, sedated, currently on 60% FiO2, ? Remains on sedation, ? Currently on insulin drip, ? Spoke to pulmonary critical care, plans on bronchoscopy this morning, ? Spoke to patient's son, advised about her septic shock, currently her status is stable, prognosis guarded, precautions fully optimistic, her urine output is improving, kidney function improving, sepsis is improving, we will planning on doing a bronchoscopy today, discussed risk and benefits of bronchoscopy, discussed complications including but not limited to pneumothorax, he voiced understanding, all questions answered, agreed to proceed ? Vitals/I&O/Wt Last Vital Signs Temp 100 F H 08/24/23 13:30 Pulse 103 H 08/24/23 16:00 Resp 23 H 08/24/23 16:00 BP 92/62 08/24/23 16:00 Pulse Ox 97 08/24/23 16:00 O2 Del Method Mechanical Ventilation 08/24/23 04:30 O2 Flow Rate 15 08/22/23 12:15 FiO2 60 08/24/23 14:55 08/24/23 08/24/23 08/24/23 06:59 14:59 22:59 Intake Total 1098.808 / 3693.864 1401.266 / 1401.266 198.870 / 1600.136 Output Total 600 / 2145 Balance 498.808 / 4033.234 9812.266 / 1401.266 198.870 / 1600.136 Weight last 48 hrs Weight 51.483 kg Weight 39.463 kg Physical Exam 2 Const: COMMON NORMALS: no acute distress OTHER: Intubated, sedated, no mechanical ventilation Resp: COMMON NORMALS: normal respiratory effort, No retractions, No use of accessory muscles and clear to auscultation bilaterally AUSCULTATION: clear to auscultation bilaterally Cardio: COMMON NORMALS: regular rate, regular rhythm, S1 normal heart sound present and S2 normal heart sound present RATE: regular rate RHYTHM: r egular rhythm HEART SOUNDS: S1 normal heart sound present and S2 normal heart sound present GI: COMMON NORMALS: Normal to inspection, nondistended, normoactive bowel sounds present and non-tender Extremity: COMMON NORMALS: no pedal edema Sepsis: Is patient septic: Yes Focused sepsis exam performed: Yes F ocused sepsis exam: Cap refill greater than 3 seconds, DP PT pulses not palpable, no mottling seen, mild pallor of bilateral lower extremity Data 08/24/23 00:24 08/24/23 03:22 Micro: Microbiology 08/24/23 09:50 Gram Stain - Final Lung Left Lower Lobe 08/22/23 Unknown Gram Stain - Final Sputum - Endotracheal Tube Aspirate Sputum Culture - Final Staphylococcus aureus 08/22/23 12:53 Blood Culture - Preliminary Blood NEGATIVE TO DATE 08/22/23 12:52 Blood Culture - Preliminary Blood NEGATIVE TO DATE A&P Assessment and plan (1) Acute hypoxic respiratory failure: (2) Unresponsiveness: (3) Septic shock: (4) Lactic acidosis: (5) Metabolic acidosis: (6) NSTEMI (non-ST elevated myocardial infarction): (7) Acute renal failure: Qualifiers: Acute renal failure type: unspecified Qualified Code(s): N17.9 - Acute kidney failure, unspecified (8) Hypernatremia: (9) Hypokalemia: (10) Atrial fibrillation with RVR: (11) Increased anion gap metabolic acidosis: (12) Aspiration pneumonia: Qualifiers: Aspiration pneumonia type: due to vomit Laterality: left Lung location: lower lobe of lung Qualified Code(s): J69.0 - Pneumonitis due to inhalation of food and vomit (13) Collapse of left lung: (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 Secondary to aspiration, ? Secondary to left lower lobe lung collapse, pneumonia, sputum culture showing Staph aureus ? Staph aureus pneumonia ? COVID-19 pneumonia ? Plan, ? Plan on bronchoscopy this morning ? Continue ICU level monitoring, ? Continue intubation, ? Minimize tidal volume, minimize FiO2, ? Fentanyl, Versed, propofol for sedation, ? Monitor respiratory status closely, ? Continue broad-spectrum tract therapy vancomycin, meropenem, ? On remdesivir, Decadron for COVID-19 pneumonia ? Isolation precautions ? Patient's son tells me that if her condition worsens, she deteriorates on the ventilator, he wants us to proceed with just making her comfortable, and easing her pes and easing her suffering allowing her to pass out comfortably, ? Pulmonary critical care has been consulted, plans on possible bronchoscopy when patient is more stabl COVID-19 pneumonia, ? As above Staph aureus pneumonia, on vancomycin Septic shock, -COVID-19 pneumonia ? Secondary to pneumonia ? Sputum cultures ? Blood cultures, ? Respiratory viral panel, ? Broad-spectrum antibiotic therapy vancomycin, meropenem ? Monitor lactic acid ? Monitor clinical status closely ? Continue Levophed, maintain MAP more than 65, Left lower lobe lung collapse, ? Pulmonary critical care consulted, ? bronchoscopy Hypokalemia, resolving Hypernatremia likely sec to dehydration, IV fluids, Diabetic ketoacidosis -Anion gap improving, continue insulin drip, low rate, check BMP every 4 hours monitor potassium ? Once potassium is repleted, and potassium is greater than 3.5 we will start insulin drip ? DKA protocol, will wean off insulin drip, subcu insulin ? IV fluids, A-fib with RVR ? Amiodarone drip, start p.o. amiodarone ? Status post amiodarone bolus, status post digoxin -Continue Eliquis NSTEMI, ? Type I versus type II, ? Cannot rule out underlying cardiology given type 2 diabetes mellitus, poorly controlled, ? Cardiac echo, ? Continue eliquis History of nosebleed, monitor as on heparin drip, Increased anion gap metabolic acidosis, ? Multifactorial from sepsis, septic shock, diabetic ketoacidosis, Anorexia, BMI 15.9, Poorly controlled type 2 diabetes mellitus, insulin drip as above Acute renal failure, likely sec to dehydration, nausea, vomiting, diarrhea, diabetic ketoacidosis, sepsis, septic shock ? Monitor urine output, ? Monitor creatinine, monitor potassium, Possible Listeria food poisoning, ? I looked up patient's sons reported ice cream, it is a [employer] brand, home style home style ice cream, ? Its not part of the recall, I also visited the [facility] website, the [place] website and it was not part of the recalls, ? But I will give patient benefit of the doubt, as apparently according to the son he was called and told that she had a Listeria infection I am not sure if this was [facility] ? I will get records from [facility] I did call them however their medical record department was closed, ? For now I will place her on meropenem for coverage Goals of care discussion, patient's son tells me that he does not want his mom to get CPR, he does not want to have overly aggressive interventions, if her condition were to deteriorate, he just wants her to be comfortable Attestations 2 Medical Necessity Statement*: Patient requires hospitalization for acute respiratory failure, COVID-19 pneumonia, Staph aureus pneumonia, left lung collapse, sepsis, septic shock, A- fib, renal failure, multiorgan failure Coding Level of Care Code Critical Care >/= 30 minutes Critical care time (in minutes): 60 The high probability of a clinically significant, sudden or life threatening deterioration, as referenced in this documentation, required my full and direct attention, intervention and personal management. The critical care time shown is in addition to time spent performing any reported separately billable procedures and includes the following: [x] Data and vital sign review and interpretation [x ] Patient assessment, examination and intervention [x] Medication orders and management [x] Patient/Family updates as able [x] Care Coordination and Documentation. Diagnoses Acute hypoxic respiratory failure J96.01 Unresponsiveness R41.89 Septic shock A41.9; R65.21 Lactic acidosis E87.20 Metabolic acidosis E87.20 NSTEMI (non-ST elevated myocardial infarction) I21.4 Acute renal failure, unspecified acute renal failure type N17.9 Acute renal failure type: unspecified Hypernatremia E87.0 Hypokalemia E87.6 Atrial fibrillation with RVR I48.91 Increased anion gap metabolic acidosis E87.29 Aspiration pneumonia of left lower lobe due to vomit J69.0 Aspiration pneumonia type: due to vomit Laterality: left Lung location: lower lobe of lung Collapse of left lung J98.11 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
[2023-08-24] MEDS: lidocaine 2% INJ 20 mL INJECTION (16:57)
[2023-08-24] MEDS: pantoprazole 40 mg SDV IVP (17:11)
[2023-08-24] MEDS: midazolam hcl 100 MG/100 ML BAG IV (17:11)
[2023-08-24] MEDS: amiodarone 200 mg Tablet 400 MG PO (17:11)
[2023-08-24 17:45] LABS: Glucose Point of Care 276 mg/dL (70-110)
[2023-08-24] MEDS: insulin lispro 100 unit/1 mL SUBCUT (17:57)
[2023-08-24] MEDS: dexmedeTOMIDine 0.9 % NaCL 400 MCG/100 ML PREMIX IV (18:24)
[2023-08-24] MEDS: meropenem 500 MG in sodium chloride 0.9% (plus) 50 ML 100 MG IV (19:32)
[2023-08-24] MEDS: vancomycin 500 MG in sodium chloride 0.9% (plus) 100 ML 200 MG IV (20:40)
[2023-08-24 21:28] LABS: Glucose Point of Care 250 mg/dL (70-110)
[2023-08-25] VITALS (59 sets, daily range): BP systolic 64–117; BP diastolic 35–81; PULSE 81–147; RESP 18–25; TEMP 36.8–38.6; O2SAT 86–99
[2023-08-25] MEDS: norepinephrine 4 MG/250 ML BAG 22.5 MG IV ×2 (03:30→14:21)
[2023-08-25 04:46] LABS: Basophils # 0.1 10^3/uL (0.0-0.1); Basophils % 0.4 %; Hematocrit 40.9 % (36-47); Lymphocytes # 1.1 10^3/uL (0.8-4.8); Lymphocytes % 7.4 %; Mean Corpuscular HGB Conc 32.8 g/dL (30-55); Mean Corpuscular Hemoglobin 31.8 pg (27-33); Mean Corpuscular Volume 96.9 fl (85-98); Mean Platelet Volume 13.3 fL (7.4-10.4); Monocytes # 0.2 10^3/uL (0.2-0.9); Monocytes % 1.6 %; Neutrophils # 13.17 10^3/uL (1.8-7.7); Neutrophils % 89.9 %; Nucleated Red Blood Cells % 0.2 %; Red Blood Count 4.22 10^6/uL (3.85-5.65); Red Cell Distribution Width 15.7 % (12.1-15.1); White Blood Count 14.64 10^3/uL (3.29-11.43)
[2023-08-25 05:14] LABS: Alanine Aminotransferase 92 U/L (0-33); Alkaline Phosphatase 115 U/L (35-105); Anion Gap 20.6 (5-19); Aspartate Amino Transferase 61 U/L (0-32); Blood Urea Nitrogen 40 mg/dL (8-23); C Reactive Protein 137.1 mg/L (0.0-4.9); Calcium 7.1 mg/dL (8.5-10.5); Carbon Dioxide 16 mmol/L (22-29); Chloride 105 mmol/L (98-107); Glucose 303 mg/dL (65-115); Magnesium 1.7 mg/dL (1.7-2.3); Osmolality Calculated 303 mOsm/kg (285-295); Phosphorus 2.1 mg/dL (2.5-4.5); Potassium 5.6 mmol/L (3.5-5.1); Sodium 136 mmol/L (136-145); Total Bilirubin 0.7 mg/dL (0.15-1.2)
[2023-08-25 05:21] LABS: Lactate (Lactic Acid level) 4.1 mmol/L (0.5-2.2)
[2023-08-25 05:31] LABS: Creatine Phosphokinase 111 U/L (26-192)
[2023-08-25 05:35] LABS: ABG PCO2 24.9 mmHg (35-45); ABG PH Result 7.44 (7.35-7.45); Arterial Blood Gas Hematocrit 48.9 % (37-47); Base Excess ABG -5.1 mmol/L (-2.0-2.0); Blood Gas Allen Test Pos; Blood Gas Operator Identificat JB; Blood Gas Sample Site Brachial, left; Blood Gas Sample Type Arterial; Blood Gas Tidal Volume 0.35; Oxygen Device VENT; PO2 ABG 63.5 mmHg (80.0-100.0); PO2 FiO2 Ratio Arterial Blood 0
[2023-08-25 05:37] LABS: Add RBC Morph Yes
[2023-08-25 05:38] LABS: RBC Morph Comp No; Slide Review Slide Review Perform
[2023-08-25 05:39] LABS: Burr Cells 4+; Platelet Count 48 10^3/cmm (157-399)
[2023-08-25 05:43] LABS: INR 9.74 (0.8-1.2)
[2023-08-25 06:23] LABS: NT Pro B Type Natriuretic Pept 3962 pg/mL (0-450); Procalcitonin 13.34 ng/mL (0-0.5)
[2023-08-25 07:54] LABS: Glucose Point of Care 278 mg/dL (70-110)
[2023-08-25] MEDS: phosphorus 250 mg Tablet PO ×2 (08:16→17:42)
[2023-08-25] MEDS: meropenem 500 MG in sodium chloride 0.9% (plus) 50 ML 100 MG IV ×2 (08:16→19:50)
[2023-08-25] MEDS: amiodarone 200 mg Tablet 400 MG PO ×2 (08:16→17:40)
[2023-08-25] MEDS: insulin lispro 100 unit/1 mL SUBCUT ×3 (08:17→17:41)
[2023-08-25 08:23] LABS: INR 8.98 (0.8-1.2)
[2023-08-25] MEDS: phytonadione (ADULT) 10 mg/mL Ampule 1 mL SUBCUT (10:14)
[2023-08-25] MEDS: albumin 12.5 GM/50 ML VIAL IV (10:16)
[2023-08-25] MEDS: acetaminophen 325 mg Tablet 650 MG PO ×2 (10:53→17:43)
--- NOTE | 2023-08-25 12:24 | P.PN_ITS ---
Subjective 2 Subjective: Patient is intubated and sedated. Febrile. Heart rate is elevated. Vitals/I&O/Wt Last Vital Signs Temp 99.7 F H 08/25/23 04:00 Pulse 108 H 08/25/23 06:00 Resp 20 H 08/25/23 11:38 BP 101/74 08/25/23 04:00 Pulse Ox 96 08/25/23 11:38 O2 Del Method Mechanical Ventilation 08/25/23 04:00 O2 Flow Rate 15 08/22/23 12:15 FiO2 35 08/25/23 11:38 08/24/23 08/25/23 08/25/23 22:59 06:59 14:59 Intake Total 509.238 / 1910.504 491.895 / 2402.399 Output Total 1000 / 1000 1150 / 2150 Balance -490.762 / 910.504 -658.105 / 252.399 Weight last 48 hrs Weight 108 lb Weight 113 lb 8 oz Physical Exam 2 Narrative: Patient is intubated and sedated. Resp: AUSCULTATION: rhonchi and diminished lung sounds Cardio: RHYTHM: abnormal rhythm OTHER: Consistent with atrial fibrillation. Heart rate elevated Extremity: OTHER: No edema Neuro: OTHER: Intubated sedated Data 08/29/23 05:20 08/29/23 05:20 Micro: Microbiology 08/24/23 09:50 Gram Stain - Final Lung Left Lower Lobe Bronchoalveolar Lavage Culture - Preliminary Coag positive Staphylococcus 08/24/23 20:30 Stool Lactoferrin - Final Stool Occult Blood (FIT) - Final 08/22/23 Unknown Gram Stain - Final Sputum - Endotracheal Tube Aspirate Sputum Culture - Final Staphylococcus aureus A&P Assessment and plan (1) Atrial fibrillation with RVR: Continue current medications. Echo showed normal LV systolic function. (2) NSTEMI (non-ST elevated myocardial infarction): Once patient recovers from COVID infection and is stable, can consider ischemic workup (3) Septic shock: Still hypotensive requiring pressors continue IV fluids. Management per hospitalist (4) Acute hypoxic respiratory failure: On ventilator managed by ICU MD Attestations 2 Medical Necessity Statement*: care expected to cross 2 midnights. Coding Level of Care Code Acute Code for [facility] Diagnoses Atrial fibrillation with RVR I48.91 NSTEMI (non-ST elevated myocardial infarction) I21.4 Septic shock A41.9; R65.21 Acute hypoxic respiratory failure J96.01
[2023-08-25 12:29] LABS: Glucose Point of Care 256 mg/dL (70-110)
[2023-08-25 12:35] LABS: Basophils % 0.3 %; Hematocrit 37.9 % (36-47); Lymphocytes % 9.2 %; Mean Corpuscular HGB Conc 31.9 g/dL (30-55); Mean Corpuscular Hemoglobin 31.6 pg (27-33); Monocytes # 0.3 10^3/uL (0.2-0.9); Monocytes % 2.5 %; Neutrophils # 9.31 10^3/uL (1.8-7.7); Neutrophils % 86.9 %; Nucleated Red Blood Cells % 0.3 %; Platelet Count 46 10^3/cmm (157-399); Red Blood Count 3.83 10^6/uL (3.85-5.65); Red Cell Distribution Width 16.3 % (12.1-15.1); White Blood Count 10.72 10^3/uL (3.29-11.43)
[2023-08-25 12:52] LABS: Slide Review Slide Review Perform
[2023-08-25 12:55] LABS: Anion Gap 20.6 (5-19); Blood Urea Nitrogen 44 mg/dL (8-23); Calcium 7.1 mg/dL (8.5-10.5); Carbon Dioxide 17 mmol/L (22-29); Chloride 105 mmol/L (98-107); Glucose 264 mg/dL (65-115); Osmolality Calculated 304 mOsm/kg (285-295); Potassium 5.6 mmol/L (3.5-5.1); Sodium 137 mmol/L (136-145)
[2023-08-25 12:58] LABS: INR 7.48 (0.8-1.2)
--- NOTE | 2023-08-25 13:06 | PC.NUTR ---
Consult for TF recommendation received. When medically appropriate, recommend Glucerna 1.2 beginning @ 5 mls/hr and increasing 5-10 mls/hr Q8H as tolerated until goal rate of 30 mls/hr with FWF of 60 mls Q6H or per MD discretion. Details in RD assessment.
--- NOTE | 2023-08-25 14:39 | P.PN_ITS ---
Subjective 2 Subjective: - Patient was seen this morning, she is febrile this morning, ? She is in A-fib with RVR heart rates of 130s, ? Remains on Levophed, remains on 50% FiO2, ? Urine output is 2300, ? She did have dark tarry output from her oral gastric tube, Eliquis has been held, INR was 10, was given IM vitamin K, ? Remains on antibiotic therapy ? Plans on weaning of sedation, spontaneous breathing trial, monitor hemodynamics, -Starting tube feeds today Vitals/I&O/Wt Last Vital Signs Temp 101.4 F H 08/25/23 08:00 Pulse 94 08/25/23 13:00 Resp 19 H 08/25/23 14:02 BP 89/58 08/25/23 13:00 Pulse Ox 94 08/25/23 14:02 O2 Del Method Mechanical Ventilation 08/25/23 08:00 O2 Flow Rate 15 08/22/23 12:15 FiO2 35 08/25/23 14:02 08/24/23 08/25/23 08/25/23 22:59 06:59 14:59 Intake Total 509.238 / 1910.504 491.895 / 2402.399 539.025 / 539.025 Output Total 1000 / 1000 1150 / 2150 150 / 150 Balance -490.762 / 910.504 -658.105 / 252.399 389.025 / 389.025 Weight last 48 hrs Weight 48.988 kg Weight 51.483 kg Physical Exam 2 Const: COMMON NORMALS: no acute distress Resp: COMMON NORMALS: normal respiratory effort, No retractions, No use of accessory muscles and clear to auscultation bilaterally AUSCULTATION: clear to auscultation bilaterally Cardio: COMMON NORMALS: regular rate, regular rhythm, S1 normal heart sound present and S2 normal heart sound present RATE: regular rate RHYTHM: r egular rhythm HEART SOUNDS: S1 normal heart sound present and S2 normal heart sound present GI: COMMON NORMALS: Normal to inspection, nondistended, normoactive bowel sounds present and non-tender Extremity: COMMON NORMALS: no pedal edema Data 08/25/23 12:23 08/25/23 12:23 Micro: Microbiology 08/24/23 09:50 Gram Stain - Final Lung Left Lower Lobe Bronchoalveolar Lavage Culture - Preliminary Coag positive Staphylococcus 08/24/23 20:30 Stool Lactoferrin - Final Stool Occult Blood (FIT) - Final 08/22/23 Unknown Gram Stain - Final Sputum - Endotracheal Tube Aspirate Sputum Culture - Final Staphylococcus aureus A&P Assessment and plan (1) Acute hypoxic respiratory failure: (2) Unresponsiveness: (3) Septic shock: (4) Lactic acidosis: (5) Metabolic acidosis: (6) NSTEMI (non-ST elevated myocardial infarction): (7) Acute renal failure: Qualifiers: Acute renal failure type: unspecified Qualified Code(s): N17.9 - Acute kidney failure, unspecified (8) Hypernatremia: (9) Hypokalemia: (10) Atrial fibrillation with RVR: (11) Increased anion gap metabolic acidosis: (12) Aspiration pneumonia: Qualifiers: Aspiration pneumonia type: due to vomit Laterality: left Lung location: lower lobe of lung Qualified Code(s): J69.0 - Pneumonitis due to inhalation of food and vomit (13) Collapse of left lung: (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 Secondary to aspiration, ? Secondary to left lower lobe lung collapse, pneumonia, sputum culture showing Staph aureus ? Staph aureus pneumonia ? COVID-19 pneumonia ? Plan, ?Status post bronchoscopy ? Continue ICU level monitoring, ? Continue intubation, ? Minimize tidal volume, minimize FiO2, ? Fentanyl, Versed, propofol for sedation, ? Monitor respiratory status closely, ? Continue broad-spectrum tract therapy vancomycin, meropenem, ? On remdesivir, Decadron for COVID-19 pneumonia ? Isolation precautions ? Patient's son tells me that if her condition worsens, she deteriorates on the ventilator, he wants us to proceed with just making her comfortable, and easing her pes and easing her suffering allowing her to pass out comfortably, ? Pulmonary critical care has been consulted, plans on possible bronchoscopy when patient is more stabl COVID-19 pneumonia, ? As above Staph aureus pneumonia, on vancomycin Septic shock, -COVID-19 pneumonia ? Secondary to pneumonia ? Sputum cultures ? Blood cultures, ? Respiratory viral panel, ? Broad-spectrum antibiotic therapy vancomycin, meropenem ? Monitor lactic acid ? Monitor clinical status closely ? Continue Levophed, maintain MAP more than 65, Left lower lobe lung collapse, ? Pulmonary critical care consulted, ? bronchoscopy Hypokalemia, resolving Hypernatremia likely sec to dehydration, IV fluids, Diabetic ketoacidosis -Anion gap improving, continue insulin drip, low rate, check BMP every 4 hours monitor potassium ? Once potassium is repleted, and potassium is greater than 3.5 we will start insulin drip ? DKA protocol, will wean off insulin drip, subcu insulin ? IV fluids, A-fib with RVR ? Amiodarone drip, start p.o. amiodarone ? Status post amiodarone bolus, status post digoxin -Continue Eliquis NSTEMI, ? Type I versus type II, ? Cannot rule out underlying cardiology given type 2 diabetes mellitus, poorly controlled, ? Cardiac echo, ? Continue eliquis History of nosebleed, monitor as on heparin drip, Increased anion gap metabolic acidosis, ? Multifactorial from sepsis, septic shock, diabetic ketoacidosis, Anorexia, BMI 15.9, Poorly controlled type 2 diabetes mellitus, insulin drip as above Acute renal failure, likely sec to dehydration, nausea, vomiting, diarrhea, diabetic ketoacidosis, sepsis, septic shock ? Monitor urine output, ? Monitor creatinine, monitor potassium, Possible Listeria food poisoning, ? I looked up patient's sons reported ice cream, it is a [employer] brand, home style home style ice cream, ? Its not part of the recall, I also visited the [facility] website, the [place] website and it was not part of the recalls, ? But I will give patient benefit of the doubt, as apparently according to the son he was called and told that she had a Listeria infection I am not sure if this was [facility] ? I will get records from [facility] I did call them however their medical record department was closed, ? For now I will place her on meropenem for coverage Goals of care discussion, patient's son tells me that he does not want his mom to get CPR, he does not want to have overly aggressive interventions, if her condition were to deteriorate, he just wants her to be comfortable Plan for today heart rate control, wean off Levophed, continue tube feeds, monitor residuals, monitor urine output, fever control, INR is 9, hold Eliquis, 1 dose vitamin K recheck INR, monitor for bleeding, Attestations 2 Medical Necessity Statement*: Patient requires hospitalization for septic shock A-fib, multiorgan failure, pneumonia, respiratory failure, febrile state, now with concerns for slow GI bleed, Coding Level of Care Code Critical Care >/= 30 minutes Critical care time (in minutes): 55 The high probability of a clinically significant, sudden or life threatening deterioration, as referenced in this documentation, required my full and direct attention, intervention and personal management. The critical care time shown is in addition to time spent performing any reported separately billable procedures and includes the following: [x] Data and vital sign review and interpretation [x ] Patient assessment, examination and intervention [x] Medication orders and management [x] Patient/Family updates as able [x] Care Coordination and Documentation. Diagnoses Acute hypoxic respiratory failure J96.01 Unresponsiveness R41.89 Septic shock A41.9; R65.21 Lactic acidosis E87.20 Metabolic acidosis E87.20 NSTEMI (non-ST elevated myocardial infarction) I21.4 Acute renal failure, unspecified acute renal failure type N17.9 Acute renal failure type: unspecified Hypernatremia E87.0 Hypokalemia E87.6 Atrial fibrillation with RVR I48.91 Increased anion gap metabolic acidosis E87.29 Aspiration pneumonia of left lower lobe due to vomit J69.0 Aspiration pneumonia type: due to vomit Laterality: left Lung location: lower lobe of lung Collapse of left lung J98.11 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
[2023-08-25] MEDS: remdesivir 100 MG in sodium chloride 0.9% (100 ml) 80 ML IV (16:09)
[2023-08-25 16:40] LABS: Glucose Point of Care 206 mg/dL (70-110)
[2023-08-25] MEDS: pantoprazole 40 mg SDV IVP (17:42)
--- NOTE | 2023-08-25 18:41 | PC.NURSE ---
SHift SUmmary: Uneventful shift. Precedex and fentanyl has been turned off, attempting to wake patient to assess mental status. Patient remains unresponsive even to painful stimuli, GCS of 3. Does not have a gag with inline suction. Heart rhythm remains afib, but better controlled usually between 100-110. Trickle feeds started today but stopped due to high residuals, restart tube feeds when residuals less than 100 (see message to nurse order).
[2023-08-25 19:38] LABS: Glucose Point of Care 179 mg/dL (70-110)
[2023-08-25] MEDS: vancomycin 500 MG in sodium chloride 0.9% (plus) 100 ML 200 MG IV (19:50)
--- NOTE | 2023-08-25 20:07 | P.PN_ITS ---
Subjective 2 Subjective: -Patient seen multiple times at bedside -Patient is in and out A-fib RVR through out the day -Dark brown aspirate from NG tube-Eliqui s held; supratherapeutic INR-received vitamin K -Requiring pressor support-Levophed 6 Mg -plan is to taper down today -Renal functions improving -She is down to 40% FiO2 on her ventilat or -Plan is to taper down sedation and chec k for mentation -If no meaningful response-we will plan to get CT head tomorrow morning -Labs and imaging reviewed Medications: Reviewed: Yes Vitals/I&O/Wt Last Vital Signs Temp 101.3 F H 08/25/23 18:30 Pulse 107 H 08/25/23 18:30 Resp 18 08/25/23 16:00 BP 90/59 08/25/23 18:30 Pulse Ox 94 08/25/23 18:30 O2 Del Method Mechanical Ventilation 08/25/23 18:30 O2 Flow Rate 15 08/22/23 12:15 FiO2 35 08/25/23 18:30 08/25/23 08/25/23 08/25/23 06:59 14:59 22:59 Intake Total 491.895 / 2402.399 539.025 / 539.025 199.875 / 738.900 Output Total 1150 / 2150 150 / 150 175 / 325 Balance -658.105 / 252.399 389.025 / 389.025 24.875 / 413.900 Weight last 48 hrs Weight 108 lb Weight 113 lb 8 oz Physical Exam 2 Narrative: PHYSICAL EXAM: General: lying in bed, sedated and intubated. HEENT:NCAT, PERRLA, EOMI Neck: Supple Lungs: Reduced breath sounds left lower lung zone Heart: s1/s2, RRR Abd: soft, NT, ND, BS + Normoactive Extremities: No edema POWER WASHER: sedated and limited POWER WASHER exam possible. SKIN: no rash LDA: # CVC: Right subclavian 08/22/2020; right femoral line 08/22/2023 # Valenzuela: 08/22/2023 Data 08/25/23 12:23 08/25/23 12:23 Other Labs: Radiology Impressions Chest X-Ray 08/24/23 07:00 IMPRESSION: Support lines and catheters in place as described. Bibasilar pneumonia, worse on the left. Laboratory Results WBC 10.72 10^3/uL (3.29-11.43) 08/25/23 12:23 RBC 3.83 10^6/uL (3.85-5.65) L 08/25/23 12:23 Hgb 12.10 g/dL (11.27-16.99) 08/25/23 12:23 Hct 37.9 % (36-47) 08/25/23 12:23 MCV 99.0 fl (85-98) H 08/25/23 12:23 MCH 31.6 pg (27-33) 08/25/23 12:23 MCHC 31.9 g/dL (30-55) 08/25/23 12: RDW 16.3 % (12.1-15.1) H 08/25/23 12: Plt Count 46 10^3/cmm (157-399) L 08/25/23 12: MPV Not Reportable 08/25/23 12:23 Neut % (Auto) 86.9 % 08/25/23 12:23 Lymph % (Auto) 9.2 % 08/25/23 12:23 [place] % (Auto) 2.5 % 08/25/23 12:23 Eos % (Auto) 0.0 % 08/25/23 12:23 Baso % (Auto) 0.3 % 08/25/23 12:23 Neut # (Auto) 9.31 10^3/uL (1.8-7.7) H 08/25/23 12:23 Lymph # (Auto) 1.0 10^3/uL (0.8-4.8) 08/25/23 12:23 [place] # (Auto) 0.3 10^3/uL (0.2-0.9) 08/25/23 12:23 Eos # (Auto) 0.0 10^3/uL (0.0-0.8) 08/25/23 12:23 Baso # (Auto) 0.0 10^3/uL (0.0-0.1) 08/25/23 12:23 Nucleated RBC % (auto) 0.3 % 08/25/23 12:23 Total Counted 100 (0-100) 08/23/23 04:04 Atypical Lymphs % 0.0 % (0-5) 08/23/23 04:04 Absolute Neutrophils 16.8 10^3/cmm (1.4-6.5) H 08/23/23 04:04 Segmented Neutrophils 70 % 08/23/23 04:04 Abs Segm Neuts (Man) 14.3 10/cmm (1.6-7.1) H 08/23/23 04:04 Band Neutrophils 12.0 % 08/23/23 04:04 Abs Band Neuts (Man) 2.5 10^3/cmm (0.0-1.2) H 08/23/23 04:04 Absolute Lymphocytes 2.0 10^3/cmm (1.2-3.4) 08/23/23 04:04 Lymphocytes (Manual) 10 % 08/23/23 04:04 Monocytes (Manual) 0.0 % 08/23/23 04:04 Absolute Monocytes 0.0 10^3/cmm (0.1-0.6) L 08/23/23 04:04 Eosinophils (Manual) 0 % 08/23/23 04:04 Absolute Eosinophils 0.0 10^3/cmm (0.0-0.7) 08/23/23 04:04 Basophils (Manual) 0.0 % 08/23/23 04:04 Absolute Basophils 0.0 10^3/cmm (0.0-0.2) 08/23/23 04:04 Metamyelocytes 8.0 % 08/23/23 04:04 Nucleated RBCs # 0.0 /100WBC 08/25/23 12:23 Platelet Estimate Decreased (Normal) L 08/23/23 04:04 [place] Cells 4+ H 08/25/23 04:30 PT 66.70 SECONDS (12.1-14.9) H 08/25/23 12:23 INR 7.48 (0.8-1.2) H* 08/25/23 12: APTT 122.6 SECONDS (23.9-36.7) H 08/23/23 08:17 Fibrinogen 565 mg/dL (174-498) H 08/22/23 16:52 D-Dimer 2.60 ug/mLFEU (0-0.59) H 08/22/23 16:52 Specimen Type Arterial 08/25/23 05:15 Sample Site Brachial, left 08/25/23 05:15 ABG pH 7.44 (7.35-7.45) 08/25/23 05:15 ABG pCO2 24.9 mmHg (35-45) L 08/25/23 05:15 ABG pO2 63.5 mmHg (80.0-100.0) L 08/25/23 05:15 ABG PO2/FiO2 Ratio 0 08/25/23 05:15 ABG HCO3 17.0 mmol/L (22-26) L 08/25/23 05:15 ABG O2 Saturation 93.2 08/22/23 14:53 ABG Base Excess -5.1 mmol/L (-2.0-2.0) L 08/25/23 05:15 [place] Test Pos 08/25/23 05:15 A-a O2 Gradient 41.4 mmHg (5-10) H 08/22/23 14:53 Hematocrit 48.9 % (37-47) H 08/25/23 05:15 Hgb O2 Saturation 91.3 % (95-100) L 08/22/23 14:53 Carboxyhemoglobin 1.0 %THgb (0.4-20.1) 08/22/23 14:53 Methemoglobin 1.0 % (0.4-1.5) 08/22/23 14:53 Total Hemoglobin 14.3 g/dL (12-16) 08/22/23 14:53 Sodium 156.0 mmol/L (131-143) H 08/22/23 14:53 Potassium 2.3 mmol/L (3.5-5.0) L 08/22/23 14:53 Glucose 322.0 mg/dL (70-115) H 08/22/23 14:53 Ionized Calcium 1.1 mmol/L (1.1-1.4) 08/22/23 14:53 O2 Delivery Device Vent 08/25/23 05:15 FiO2 60.0 % 08/25/23 05:15 Tidal Volume 0.35 08/25/23 05:15 PEEP 8.0 cmH20 08/25/23 05:15 Printed Forms Proofreader ID Davin 08/25/23 05:15 Sodium 137 mmol/L (136-145) 08/25/23 12:23 Potassium 5.6 mmol/L (3.5-5.1) H 08/25/23 12:23 Chloride 105 mmol/L (98-107) 08/25/23 12:23 Carbon Dioxide 17 mmol/L (22-29) L 08/25/23 12:23 Anion Gap 20.6 (5-19) H 08/25/23 12:23 BUN 44 mg/dL (8-23) H 08/25/23 12:23 Creatinine 1.5 mg/dL (0.5-0.9) H 08/25/23 12:23 GFR Calculation Not Reportable 08/25/23 12:23 Glucose 264 mg/dL (65-115) H 08/25/23 12: POC Glucose 179 mg/dL (70-110) H 08/25/23 19:33 Estimat Average Glucose 212 08/22/23 17:00 Hemoglobin A1c 9.0 % (4.0-6.0) H 08/22/23 17:00 Calculated Osmolality 304 mOsm/kg (285-295) H 08/25/23 12:23 Lactic Acid 12.6 mmol/L (0.5-2.2) H* 08/22/23 12:52 Lactic Acid (Sepsis) 6.7 mmol/L (0.5-2.2) H* 08/22/23 16:39 Lactate 4.1 mmol/L (0.5-2.2) H* 08/25/23 04:30 Calcium 7.1 mg/dL (8.5-10.5) L 08/25/23 12:23 Phosphorus 2.1 mg/dL (2.5-4.5) L 08/25/23 04:30 Magnesium 1.7 mg/dL (1.7-2.3) 08/25/23 04:30 Total Bilirubin 0.7 mg/dL (0.15-1.2) 08/25/23 04:30 AST 61 U/L (0-32) H 08/25/23 04:30 ALT 92 U/L (0-33) H 08/25/23 04:30 Alkaline Phosphatase 115 U/L (35-105) H 08/25/23 04:30 Creatine Kinase 111 U/L (26-192) 08/25/23 04:30 Troponin T Baseline 479 ng/L (0-10) H* 08/22/23 12:52 Troponin T 120 Minute 437.6 ng/L (0-10) H 08/22/23 15:17 Delta Troponin T -41.4 ABS# (0-10) L 08/22/23 15:17 Troponin T Hi Sens 6Hr 363.6 ng/L (0-10) H 08/22/23 19:25 Troponin T Hi Sens 6Hr Delta -115.4 ng/L (0-12) L 08/22/23 19:25 C-Reactive Protein 137.1 mg/L (0.0-4.9) H 08/25/23 04:30 NT-Pro-B Natriuret Pep 3962 pg/mL (0-450) H 08/25/23 04:30 Total Protein 5.0 g/dL (6.6-8.7) L 08/25/23 04:30 Albumin 2.0 g/dL (3.5-5.2) L 08/25/23 04:30 Globulin 3.0 g/dL (1.3-4.6) 08/25/23 04:30 Triglycerides 171 mg/dL (0-150) H 08/22/23 17:00 Cholesterol 96 mg/dL (0-200) 08/22/23 17:00 LDL Cholesterol, Calc 48 mg/dL (50-129) L 08/22/23 17:00 HDL Cholesterol 14 mg/dL (60-100) L 08/22/23 17:00 LDL/HDL Ratio 3.43 RATIO (0.00-3.22) H 08/22/23 17:00 Cholesterol/HDL Ratio 6.86 mg/dL (0.0-4.40) H 08/22/23 17:00 Lipase 76 U/L (13-60) H 08/22/23 12:52 Procalcitonin 13.34 ng/mL (0-0.5) H 08/25/23 04:30 TSH 0.37 uIU/mL (0.27-4.20) 08/22/23 17:00 Random Cortisol 23.54 ug/dL (2.47-19.5) H 08/22/23 19:25 Urine Color Dark yellow (Yellow) 08/22/23 13:05 Urine Appearance Cloudy (CLEAR) A 08/22/23 13:05 Urine pH 5 (5-7) 08/22/23 13:05 Ur Specific [place] 1.020 (1.005-1.030) 08/22/23 13:05 Urine Protein Trace (Negative) 08/22/23 13:05 Urine Glucose (UA) Norm (Normal) 08/22/23 13:05 Urine Ketones Negative (Negative) 08/22/23 13:05 Urine Blood Neg (Negative) 08/22/23 13:05 Urine Nitrate Negative (Negative) 08/22/23 13:05 Urine Bilirubin 1+ (Negative) H 08/22/23 13:05 Urine Urobilinogen 1 mg/dL (Negative) H 08/22/23 13:05 Ur Leukocyte Esterase Negative (Negative) 08/22/23 13:05 Urine RBC 0-4 /hpf (0-2) H 08/22/23 13:05 Urine WBC 0-4 /hpf (0-5) H 08/22/23 13:05 Ur Squamous Epith Cells 0-4 /hpf (0-5) H 08/22/23 13:05 Amorphous Sediment Not Reportable 08/22/23 13:05 Urine Bacteria 1+ /hpf (NONE) H 08/22/23 13:05 Hyaline Casts 10-15 /lpf H 08/22/23 13:05 Nasal Influ A H1 2008 PCR Not detected (NOT DETECT) 08/23/23 07:35 Bronch Specimen Source Left lower lobe 08/24/23 09:50 Bronchial Fluid Color Slight pink 08/24/23 09:50 Bronchial Fluid Appearance Cloudy (CLEAR) 08/24/23 09:50 Bronch Cells Counted 200 08/24/23 09:50 Bronchial Neutrophils 45.00 % (0.9-2.3) H 08/24/23 09:50 Bronchial Lymphocytes 45.00 % (10.71-12.91) H 08/24/23 09:50 Bronchial Macrophages 10.00 % (83.6-86.8) L 08/24/23 09:50 Serum Ketones Negative (Negative) 08/22/23 17:00 Adenovirus (PCR) Not detected (NOT DETECT) 08/23/23 07:35 C. pneumoniae DNA (PCR) Not detected (NOT DETECT) 08/23/23 07:35 Coronavirus 229E (PCR) Not detected (NOT DETECT) 08/23/23 07:35 Human Metapneumovir PCR Not detected (NOT DETECT) 08/23/23 07:35 Influenza A (H1) PCR Not detected (NOT DETECT) 08/23/23 07:35 Influenza A (H3) PCR Not detected (NOT DETECT) 08/23/23 07:35 Influenza Type A Ag negative (Negative) 08/22/23 13:44 Influenza Type A (PCR) Not detected (NOT DETECT) 08/23/23 07:35 Influenza Type B Ag negative (Negative) 08/22/23 13:44 Influenza Type B (PCR) Not detected (NOT DETECT) 08/23/23 07:35 M. pneumoniae (PCR) Not detected (NOT DETECT) 08/23/23 07:35 Parainfluenza 1 (PCR) Not detected (NOT DETECT) 08/23/23 07:35 Parainfluenza 2 (PCR) Not detected (NOT DETECT) 08/23/23 07:35 Parainfluenza 3 (PCR) Not detected (NOT DETECT) 08/23/23 07:35 Parainfluenza 4 (PCR) Not detected (NOT DETECT) 08/23/23 07:35 RSV Type A (PCR) Not detected (NOT DETECT) 08/23/23 07:35 RSV Type B (PCR) Not detected (NOT DETECT) 08/23/23 07:35 Entero/Rhino (PCR) Not detected (NOT DETECT) 08/23/23 07:35 SARS-CoV-2 (PCR) Detected (NOT DETECT) A 08/23/23 07:35 Micro: Microbiology 08/24/23 09:50 Gram Stain - Final Lung Left Lower Lobe Bronchoalveolar Lavage Culture - Preliminary Coag positive Staphylococcus 08/24/23 20:30 Stool Lactoferrin - Final Stool Occult Blood (FIT) - Final A&P Assessment and plan (1) Altered mental status: Qualifiers: Altered mental status type: unspecified Qualified Code(s): R41.82 - Altered mental status, unspecified (2) Acute hypoxic respiratory failure: (3) Septic shock: (4) Collapse of left lung: (5) Aspiration pneumonia: Qualifiers: Aspiration pneumonia type: due to vomit Laterality: left Lung location: lower lobe of lung Qualified Code(s): J69.0 - Pneumonitis due to inhalation of food and vomit (6) Diabetic ketoacidosis: Qualifiers: Diabetes mellitus type: type 2 Diabetes mellitus complication detail: w ith coma Qualified Code(s): E11.11 - Type 2 diabetes mellitus with ketoacidosis with coma (7) Acute renal failure: Qualifiers: Acute renal failure type: unspecified Qualified Code(s): N17.9 - Acute kidney failure, unspecified (8) NSTEMI (non-ST elevated myocardial infarction): (9) Lactic acidosis: (10) Uncontrolled diabetes mellitus: Qualifiers: Diabetes mellitus type: type 2 Glycemic state: with hyperglycemia Qualified Code(s): E11.65 - Type 2 diabetes mellitus with hyperglycemia (11) Staphylococcus aureus pneumonia: (12) Pneumonia due to COVID-19 virus: (13) Hypophosphatemia: Plan ASSESSMENT/PLAN:Overall: 82-year-old elderly lady with past medical history of diabetes noncompliant, A- fib with RVR-presented to ER being unresponsive likely secondary to DKA likely due to non compliant with treatments and aspiration pneumonia. Patient is also in hypovolemic/septic shock, hypernatremia. NEURO: # Altered mental status-secondary to DKA/sepsis/hypernatremia -Head CT 08/22/2023-no acute changes -Sedated with fentanyl and Precedex -Plan is to taper down sedation and do awakening trial-if no response in 24 hours we will repeat CT head -Treat underlying sepsis/hypernatremia PULM: # Acute respiratory failure-likely secondary to aspiration pneumonia # Staph aureus pneumonia #COVID-19 PCR antigen positive -Intubated and sedated -Currently on CMV 350/PEEP 10/and FiO2 60%-ABG 7.44/24/63/17 -CT chest showed left lower lobe collapse likely secondary to fluid and secretions; review of her CT chest report from 08/09/2023 at [facility]-showed mild tubular bronchiectasis but did not show any lung collapse. So malignancy unlikely -Chest x-ray still showing bibasilar infiltrates worse on the left -Performed bronchoscope 08/24/2023-showed hyperemic left lower lobe airways with mucosal thickening and purulent mucoid secretions- BAL sent for cultures -Sputum cultures positive for Staph aureus-Patient covered with meropenem and vancomycin-she has penicillin allergy -COVID PCR positive-patient on airborne and contact isolation CVS: # Shock-sepsis versus hypovolemic -Currently on Levophed -Current recovered with antibiotics for staph pneumonia -Monitor blood pressure, lactic acid -Target MAP > 65 -Significantly elevated BNP -Echocardiogram 08/23/2023-normal LV function # Troponinemia-likely secondary to demand ischemia -Initial troponin 478-2 hours later 437?troponin -41 -EKG no ST-T wave changes -We can discontinue heparin # A-fib with RVR -Patient is on amiodarone drip and digoxin - on Eliquis held due to brownish NG aspirate GI: # Diet: Start trickle feeding # GI prophylaxis: PPI RENAL: # Anion gap acidosis-improving -Likely due to lactic acidosis secondary to septic shock-improving -Serum ketones are negative-this likely DKA # GISELLA-likely secondary to [id number] -Monitor renal functions closely -Patient is receiving IV fluids as well as pressor support to maintain MAP greater than 65 # Hypophosphatemia-improving - Will give Neutra-Phos -Monitor phosphorus HEM: # DVT prophylaxis: Currently on Eliquis - held due to brownish NG aspirate ENDO: # Diabetes mellitus-patient not on medications # Serum ketones are negative-less likely DKA -Closely monitor electrolytes, glucose, anion gap ID: # Likely patient in septic shock secondary to Staph aureus pneumonia # COVID PCR positive -CT chest 08/22/2023 showed left lower lobe atelectasis and consolidation likely secondary to aspirated material (CT chest report from [facility] 08/08/2023-did not show any abnormality -Hence less likely malignancy) -Performed bronchoscope 08/24/2023-showed hyperemic left lower lobe airways with mucosal thickening and purulent mucoid secretions- BAL cultures - positive for coag positve staph -Sputum cultures positive for Staph aureus-Patient covered with meropenem and vancomycin-she has penicillin allergy -COVID PCR positive-patient on airborne and contact isolation Code Status: DNR/DNI Disposition: ICU Critically ill:Yes MD discussed with: ED physician, hospitalist taking care of the patient, RN, RT ICU CHECKLIST: Problem list updated Verbal orders reviewed and signed Analgesia: Fentanyl Glycemic Control: Will put her on scale coverage Nutrition: N.p.o. for now Restraint Renewal (within 24 hrs): Yes Ulcer Prophylaxis: PPI Chemical Thromboprophylaxis: Prophylaxis:Elliquis held due brown aspirate Mechanical Thromboprophylaxis: SCDs Need for Central line: Right subclavian Need for Valenzuela catheter: Yes Family updated: Yes Attestations 2 Medical Necessity Statement*: Still intubated, septic shock-need close ICU monitoring Time Spent in Patient Care: Greater than 35 minutes (>than 50% of time spent in counselling and/or direct pt care on unit) . Critical Care Time: The high probability of a clinically significant, sudden or life threatening deterioration of the patient's [Neurology, pulmonary, cardiac, renal, endocrine, infectious] system(s) required my full and direct attention, intervention and personal management. The critical care time is as shown. This time is in addition to time spent performing any reported procedures but includes the following: [x] Data and vital sign review and interpretation [x] Patient assessment, examination and intervention [x] Documentation [x] Medication orders and management Critical Care Time (min): 74 Coding Level of Care Code Acute Code for [facility] Fwd Diagnoses Altered mental status, unspecified altered mental status type R41.82 Altered mental status type: unspecified Acute hypoxic respiratory failure J96.01 Septic shock A41.9; R65.21 Collapse of left lung J98.11 Aspiration pneumonia of left lower lobe due to vomit J69.0 Aspiration pneumonia type: due to vomit Laterality: left Lung location: lower lobe of lung Diabetic ketoacidosis with coma associated with type 2 diabetes mellitus E11.11 Diabetes mellitus type: type 2 Diabetes mellitus complication detail: with coma Acute renal failure, unspecified acute renal failure type N17.9 Acute renal failure type: unspecified NSTEMI (non-ST elevated myocardial infarction) I21.4 Lactic acidosis E87.20 Uncontrolled type 2 diabetes mellitus with hyperglycemia E11.65 Diabetes mellitus type: type 2 Glycemic state: with hyperglycemia Staphylococcus aureus pneumonia J15.211 Pneumonia due to COVID-19 virus U07.1; J12.82 Hypophosphatemia E83.39 Time Spent (min) 73
[2023-08-25 21:14] LABS: Glucose Point of Care 168 mg/dL (70-110)
--- NOTE | 2023-08-25 21:14 | PC.NURSE ---
Wasted 92.784mL of versed. Witnessed by Carolyn Harvey RN.
[2023-08-26] VITALS (74 sets, daily range): BP systolic 77–143; BP diastolic 44–89; PULSE 79–150; RESP 12–36; TEMP 36.8–37.7; O2SAT 89–96
[2023-08-26] MEDS: fentaNYL 1,000 MCG/100 ML BAG 2.5 MCG IV (06:59)
[2023-08-26] MEDS: amiodarone 200 mg Tablet 400 MG PO ×2 (07:29→18:03)
[2023-08-26] MEDS: meropenem 500 MG in sodium chloride 0.9% (plus) 50 ML 100 MG IV ×2 (07:29→19:59)
[2023-08-26 07:46] LABS: Glucose Point of Care 372 mg/dL (70-110)
[2023-08-26 08:03] LABS: Basophils % 0.4 %; Lymphocytes # 0.5 10^3/uL (0.8-4.8); Lymphocytes % 4.2 %; Mean Corpuscular HGB Conc 32.3 g/dL (30-55); Mean Corpuscular Hemoglobin 31.6 pg (27-33); Monocytes # 0.3 10^3/uL (0.2-0.9); Monocytes % 2.6 %; Neutrophils # 9.99 10^3/uL (1.8-7.7); Neutrophils % 87.9 %; Nucleated Red Blood Cells % 0.3 %; Platelet Count 47 10^3/cmm (157-399); Red Blood Count 4.08 10^6/uL (3.85-5.65); Red Cell Distribution Width 16.2 % (12.1-15.1); White Blood Count 11.37 10^3/uL (3.29-11.43)
[2023-08-26] MEDS: phosphorus 250 mg Tablet PO ×2 (08:11→18:03)
[2023-08-26] MEDS: insulin lispro 100 unit/1 mL SUBCUT ×3 (08:11→18:02)
[2023-08-26 08:13] LABS: INR 2.93 (0.8-1.2)
[2023-08-26 08:19] LABS: Alanine Aminotransferase 53 U/L (0-33); Albumin Level 1.9 g/dL (3.5-5.2); Alkaline Phosphatase 194 U/L (35-105); Anion Gap 29.2 (5-19); Aspartate Amino Transferase 35 U/L (0-32); Blood Urea Nitrogen 57 mg/dL (8-23); Calcium 7.4 mg/dL (8.5-10.5); Carbon Dioxide 11 mmol/L (22-29); Chloride 100 mmol/L (98-107); Globulin 3.1 g/dL (1.3-4.6); Glucose 370 mg/dL (65-115); Osmolality Calculated 311 mOsm/kg (285-295); Potassium 5.2 mmol/L (3.5-5.1); Sodium 135 mmol/L (136-145); Total Bilirubin 1.5 mg/dL (0.15-1.2)
[2023-08-26 08:33] LABS: Slide Review Slide Review Perform
[2023-08-26 08:36] LABS: C Reactive Protein 87.6 mg/L (0.0-4.9)
[2023-08-26 08:38] LABS: Lactate (Lactic Acid level) 9.4 mmol/L (0.5-2.2)
[2023-08-26 08:49] LABS: Creatine Phosphokinase 119 U/L (26-192); NT Pro B Type Natriuretic Pept 3422 pg/mL (0-450); Procalcitonin 9.96 ng/mL (0-0.5)
[2023-08-26] MEDS: amiodarone 150 MG/100 ML PREMIX 400 MG IV (09:10)
--- NOTE | 2023-08-26 09:20 | XRR_ITS ---
PROCEDURE INFORMATION: Exam: XR Chest Exam date and time: 08/26/2023 10:45 AM Age: 82 years old Clinical indication: Condition or disease; Lung condition and disease; Pneumonia; Additional info: Intubation, pneumonia TECHNIQUE: Imaging protocol: Radiologic exam of the chest. Views: 1 view. COMPARISON: CR (CHEST, ) 08/24/2023 5:54 AM FINDINGS: Tubes, catheters and devices: ETT terminates 5 cm above the juan. Right subclavian vein central line terminates near the superior cavoatrial junction. NG tube terminates in the body of the stomach. Lungs: Decreased left basilar atelectasis and/or pneumonitis. Otherwise, unremarkable. Pleural spaces: Unremarkable. No pleural effusion. No pneumothorax. Heart/Mediastinum: Unremarkable. No cardiomegaly. Bones/joints: Unremarkable. XR/XR chest 1V portable [id number] IMPRESSION: Decreased left basilar atelectasis and/or pneumonitis.
[2023-08-26 09:22] LABS: Glucose Point of Care 390 mg/dL (70-110)
[2023-08-26] MEDS: insulin glargine 100 units/1 mL 10 UNIT SUBCUT (10:53)
[2023-08-26] MEDS: albumin 25 G/100 ML BAG 60 G IV ×2 (10:55→18:03)
[2023-08-26 11:01] LABS: Lactate (Lactic Acid level) 9.6 mmol/L (0.5-2.2)
[2023-08-26] MEDS: norepinephrine 4 MG/250 ML BAG 15 MG IV (11:12)
[2023-08-26 11:29] LABS: ABG PCO2 27.2 mmHg (35-45); ABG PH Result 7.31 (7.35-7.45); Alveolar-Arterial Oxygen Gradi 15.8 mmHg (5-10); Arterial Blood Gas Hematocrit 38.7 % (37-47); Base Excess ABG -10.9 mmol/L (-2.0-2.0); Blood Gas Allen Test Pos; Blood Gas Operator Identificat CAK; Blood Gas Sample Site Radial, left; Blood Gas Sample Type Arterial; Blood Gas Tidal Volume 0.35; Carboxyhemoglobin 0.9 %THgb (0.4-20.1); HCO3 ABG 13.8 mmol/L (22-26); HGB O2 Sat 95.4 % (95-100); Methemoglobin 1.3 % (0.4-1.5); Oxygen Device VENT; Oxygen Saturation ABG 97.6; PO2 ABG 92.5 mmHg (80.0-100.0); PO2 FiO2 Ratio Arterial Blood 0; Potassium Level - ABG 4.6 mmol/L (3.5-5.0); Total Hemoglobin 12.6 g/dL (12-16)
[2023-08-26] MEDS: sodium bicarbonate 8.4% 1 mEq/mL 50mL Syr 50 MEQ IVP ×2 (12:18→18:52)
[2023-08-26 12:34] LABS: Glucose Point of Care 316 mg/dL (70-110)
--- NOTE | 2023-08-26 15:14 | P.PN_ITS ---
Subjective 2 Subjective: Seen multiple times today Off sedation however patient has poor mentation and does not respond Heart rate controlled for the most part of the day Still requiring pressors 6 mg; worsening lactic acidosis Recommended head CT Other labs and imaging reviewed Medications: Reviewed: Yes Vitals/I&O/Wt Last Vital Signs Temp 99.1 F 08/26/23 11:00 Pulse 129 H 08/26/23 11:00 Resp 19 H 08/26/23 13:44 BP 94/68 08/26/23 11:00 Pulse Ox 96 08/26/23 13:44 O2 Del Method Mechanical Ventilation 08/26/23 08:45 O2 Flow Rate 15 08/22/23 12:15 FiO2 35 08/26/23 13:44 08/26/23 08/26/23 08/26/23 06:59 14:59 22:59 Intake Total 349.678 / 1238.578 243.294 / 243.294 Output Total 550 / 875 50 / 50 Balance -200.322 / 363.578 193.294 / 193.294 Weight last 48 hrs Weight 105 lb 12.8 oz Weight 108 lb Physical Exam 2 Narrative: PHYSICAL EXAM: General: lying in bed, sedated and intubated. 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 SKIN: no rash LDA: # CVC: Right subclavian 08/22/2020; right femoral line 08/22/2023 # Valenzuela: 08/22/2023 Data 08/27/23 03:53 08/27/23 03:53 Other Labs: Radiology Impressions Chest X-Ray 08/26/23 09:20 IMPRESSION: Decreased left basilar atelectasis and/or pneumonitis. Laboratory Results WBC 11.37 10^3/uL (3.29-11.43) 08/26/23 07:26 RBC 4.08 10^6/uL (3.85-5.65) 08/26/23 07:26 Hgb 12.90 g/dL (11.27-16.99) 08/26/23 07:26 Hct 40.0 % (36-47) 08/26/23 07:26 MCV 98.0 fl (85-98) 08/26/23 07:26 MCH 31.6 pg (27-33) 08/26/23 07: MCHC 32.3 g/dL (30-55) 08/26/23 07:26 RDW 16.2 % (12.1-15.1) H 08/26/23 07:26 Plt Count 47 10^3/cmm (157-399) L 08/26/23 07:26 MPV Not Reportable 08/26/23 07:26 Neut % (Auto) 87.9 % 08/26/23 07:26 Lymph % (Auto) 4.2 % 08/26/23 07:26 Buchanan % (Auto) 2.6 % 08/26/23 07:26 Eos % (Auto) 0.0 % 08/26/23 07:26 Baso % (Auto) 0.4 % 08/26/23 07:26 Neut # (Auto) 9.99 10^3/uL (1.8-7.7) H 08/26/23 07:26 Lymph # (Auto) 0.5 10^3/uL (0.8-4.8) L 08/26/23 07:26 Buchanan # (Auto) 0.3 10^3/uL (0.2-0.9) 08/26/23 07:26 Eos # (Auto) 0.0 10^3/uL (0.0-0.8) 08/26/23 07:26 Baso # (Auto) 0.0 10^3/uL (0.0-0.1) 08/26/23 07:26 Nucleated RBC % (auto) 0.3 % 08/26/23 07:26 Total Counted 100 (0-100) 08/23/23 04:04 Atypical Lymphs % 0.0 % (0-5) 08/23/23 04:04 Absolute Neutrophils 16.8 10^3/cmm (1.4-6.5) H 08/23/23 04:04 Segmented Neutrophils 70 % 08/23/23 04:04 Abs Segm Neuts (Man) 14.3 10/cmm (1.6-7.1) H 08/23/23 04:04 Band Neutrophils 12.0 % 08/23/23 04:04 Abs Band Neuts (Man) 2.5 10^3/cmm (0.0-1.2) H 08/23/23 04:04 Absolute Lymphocytes 2.0 10^3/cmm (1.2-3.4) 08/23/23 04:04 Lymphocytes (Manual) 10 % 08/23/23 04:04 Monocytes (Manual) 0.0 % 08/23/23 04:04 Absolute Monocytes 0.0 10^3/cmm (0.1-0.6) L 08/23/23 04:04 Eosinophils (Manual) 0 % 08/23/23 04:04 Absolute Eosinophils 0.0 10^3/cmm (0.0-0.7) 08/23/23 04:04 Basophils (Manual) 0.0 % 08/23/23 04:04 Absolute Basophils 0.0 10^3/cmm (0.0-0.2) 08/23/23 04:04 Metamyelocytes 8.0 % 08/23/23 04:04 Nucleated RBCs # 0.0 /100WBC 08/26/23 07:26 Platelet Estimate Decreased (Normal) L 08/23/23 04:04 [place]ston Cells 4+ H 08/25/23 04:30 PT 31.60 SECONDS (12.1-14.9) H D 08/26/23 07:26 INR 2.93 (0.8-1.2) H 08/26/23 07:26 APTT 122.6 SECONDS (23.9-36.7) H 08/23/23 08:17 Fibrinogen 565 mg/dL (174-498) H 08/22/23 16:52 D-Dimer 2.60 ug/mLFEU (0-0.59) H 08/22/23 16:52 Specimen Type Arterial 08/26/23 11:18 Sample Site Radial, left 08/26/23 11:18 ABG pH 7.31 (7.35-7.45) L 08/26/23 11:18 ABG pCO2 27.2 mmHg (35-45) L 08/26/23 11:18 ABG pO2 92.5 mmHg (80.0-100.0) 08/26/23 11:18 ABG PO2/FiO2 Ratio 0 08/26/23 11:18 ABG HCO3 13.8 mmol/L (22-26) L 08/26/23 11:18 ABG O2 Saturation 97.6 08/26/23 11:18 ABG Base Excess -10.9 mmol/L (-2.0-2.0) L 08/26/23 11:18 Cody Test Pos 08/26/23 11:18 A-a O2 Gradient 15.8 mmHg (5-10) H 08/26/23 11:18 Hematocrit 38.7 % (37-47) 08/26/23 11:18 Hgb O2 Saturation 95.4 % (95-100) 08/26/23 11:18 Carboxyhemoglobin 0.9 %THgb (0.4-20.1) 08/26/23 11:18 Methemoglobin 1.3 % (0.4-1.5) 08/26/23 11:18 Total Hemoglobin 12.6 g/dL (12-16) 08/26/23 11:18 Sodium 136.0 mmol/L (131-143) 08/26/23 11:18 Potassium 4.6 mmol/L (3.5-5.0) 08/26/23 11:18 Glucose 360.0 mg/dL (70-115) H 08/26/23 11:18 Ionized Calcium 1.0 mmol/L (1.1-1.4) L 08/26/23 11:18 O2 Delivery Device Vent 08/26/23 11:18 FiO2 35.0 % 08/26/23 11:18 Tidal Volume 0.35 08/26/23 11:18 PEEP 6.0 cmH20 08/26/23 11:18 Counselling Psychologist ID Cak 08/26/23 11:18 Sodium 135 mmol/L (136-145) L 08/26/23 07:26 Potassium 5.2 mmol/L (3.5-5.1) H 08/26/23 07:26 Chloride 100 mmol/L (98-107) 08/26/23 07:26 Carbon Dioxide 11 mmol/L (22-29) L 08/26/23 07:26 Anion Gap 29.2 (5-19) H 08/26/23 07:26 BUN 57 mg/dL (8-23) H 08/26/23 07:26 Creatinine 1.5 mg/dL (0.5-0.9) H 08/26/23 07:26 GFR Calculation Not Reportable 08/26/23 07:26 Glucose 370 mg/dL (65-115) H 08/26/23 07:26 POC Glucose 316 mg/dL (70-110) H 08/26/23 12:20 Estimat Average Glucose 212 08/22/23 17:00 Hemoglobin A1c 9.0 % (4.0-6.0) H 08/22/23 17:00 Calculated Osmolality 311 mOsm/kg (285-295) H 08/26/23 07:26 Lactic Acid 12.6 mmol/L (0.5-2.2) H* 08/22/23 12:52 Lactic Acid (Sepsis) 6.7 mmol/L (0.5-2.2) H* 08/22/23 16:39 Lactate 9.6 mmol/L (0.5-2.2) H* 08/26/23 10:23 Calcium 7.4 mg/dL (8.5-10.5) L 08/26/23 07:26 Phosphorus 2.1 mg/dL (2.5-4.5) L 08/25/23 04:30 Magnesium 1.7 mg/dL (1.7-2.3) 08/25/23 04:30 Total Bilirubin 1.5 mg/dL (0.15-1.2) H 08/26/23 07:26 AST 35 U/L (0-32) H 08/26/23 07:26 ALT 53 U/L (0-33) H 08/26/23 07:26 Alkaline Phosphatase 194 U/L (35-105) H 08/26/23 07:26 Creatine Kinase 119 U/L (26-192) 08/26/23 07:26 Troponin T Baseline 479 ng/L (0-10) H* 08/22/23 12:52 Troponin T 120 Minute 437.6 ng/L (0-10) H 08/22/23 15:17 Delta Troponin T -41.4 ABS# (0-10) L 08/22/23 15:17 Troponin T Hi Sens 6Hr 363.6 ng/L (0-10) H 08/22/23 19:25 Troponin T Hi Sens 6Hr Delta -115.4 ng/L (0-12) L 08/22/23 19:25 C-Reactive Protein 87.6 mg/L (0.0-4.9) H 08/26/23 07:26 NT-Pro-B Natriuret Pep 3422 pg/mL (0-450) H 08/26/23 07:26 Total Protein 5.0 g/dL (6.6-8.7) L 08/26/23 07:26 Albumin 1.9 g/dL (3.5-5.2) L 08/26/23 07:26 Globulin 3.1 g/dL (1.3-4.6) 08/26/23 07:26 Triglycerides 171 mg/dL (0-150) H 08/22/23 17:00 Cholesterol 96 mg/dL (0-200) 08/22/23 17:00 LDL Cholesterol, Calc 48 mg/dL (50-129) L 08/22/23 17:00 HDL Cholesterol 14 mg/dL (60-100) L 08/22/23 17:00 LDL/HDL Ratio 3.43 RATIO (0.00-3.22) H 08/22/23 17:00 Cholesterol/HDL Ratio 6.86 mg/dL (0.0-4.40) H 08/22/23 17:00 Lipase 76 U/L (13-60) H 08/22/23 12:52 Procalcitonin 9.96 ng/mL (0-0.5) H 08/26/23 07:26 TSH 0.37 uIU/mL (0.27-4.20) 08/22/23 17:00 Random Cortisol 23.54 ug/dL (2.47-19.5) H 08/22/23 19:25 Urine Color Dark yellow (Yellow) 08/22/23 13:05 Urine Appearance Cloudy (CLEAR) A 08/22/23 13:05 Urine pH 5 (5-7) 08/22/23 13:05 Ur Specific Lillian 1.020 (1.005-1.030) 08/22/23 13:05 Urine Protein Trace (Negative) 08/22/23 13:05 Urine Glucose (UA) Norm (Normal) 08/22/23 13:05 Urine Ketones Negative (Negative) 08/22/23 13:05 Urine Blood Neg (Negative) 08/22/23 13:05 Urine Nitrate Negative (Negative) 08/22/23 13:05 Urine Bilirubin 1+ (Negative) H 08/22/23 13:05 Urine Urobilinogen 1 mg/dL (Negative) H 08/22/23 13:05 Ur Leukocyte Esterase Negative (Negative) 08/22/23 13:05 Urine RBC 0-4 /hpf (0-2) H 08/22/23 13:05 Urine WBC 0-4 /hpf (0-5) H 08/22/23 13:05 Ur Squamous Epith Cells 0-4 /hpf (0-5) H 08/22/23 13:05 Amorphous Sediment Not Reportable 08/22/23 13:05 Urine Bacteria 1+ /hpf (NONE) H 08/22/23 13:05 Hyaline Casts 10-15 /lpf H 08/22/23 13:05 Nasal Influ A H1 2009 PCR Not detected (NOT DETECT) 08/23/23 07:35 Bronch Specimen Source Left lower lobe 08/24/23 09:50 Bronchial Fluid Color Slight pink 08/24/23 09:50 Bronchial Fluid Appearance Cloudy (CLEAR) 08/24/23 09:50 Bronch Cells Counted 200 08/24/23 09:50 Bronchial Neutrophils 45.00 % (0.9-2.3) H 08/24/23 09:50 Bronchial Lymphocytes 45.00 % (10.71-12.91) H 08/24/23 09:50 Bronchial Macrophages 10.00 % (83.6-86.8) L 08/24/23 09:50 Serum Ketones Negative (Negative) 08/22/23 17:00 Adenovirus (PCR) Not detected (NOT DETECT) 08/23/23 07:35 C. pneumoniae DNA (PCR) Not detected (NOT DETECT) 08/23/23 07:35 Coronavirus 229E (PCR) Not detected (NOT DETECT) 08/23/23 07:35 Human Metapneumovir PCR Not detected (NOT DETECT) 08/23/23 07:35 Influenza A (H1) PCR Not detected (NOT DETECT) 08/23/23 07:35 Influenza A (H3) PCR Not detected (NOT DETECT) 08/23/23 07:35 Influenza Type A Ag negative (Negative) 08/22/23 13:44 Influenza Type A (PCR) Not detected (NOT DETECT) 08/23/23 07:35 Influenza Type B Ag negative (Negative) 08/22/23 13:44 Influenza Type B (PCR) Not detected (NOT DETECT) 08/23/23 07:35 M. pneumoniae (PCR) Not detected (NOT DETECT) 08/23/23 07:35 Parainfluenza 1 (PCR) Not detected (NOT DETECT) 08/23/23 07:35 Parainfluenza 2 (PCR) Not detected (NOT DETECT) 08/23/23 07:35 Parainfluenza 3 (PCR) Not detected (NOT DETECT) 08/23/23 07:35 Parainfluenza 4 (PCR) Not detected (NOT DETECT) 08/23/23 07:35 RSV Type A (PCR) Not detected (NOT DETECT) 08/23/23 07:35 RSV Type B (PCR) Not detected (NOT DETECT) 08/23/23 07:35 Entero/Rhino (PCR) Not detected (NOT DETECT) 08/23/23 07:35 SARS-CoV-2 (PCR) Detected (NOT DETECT) A 08/23/23 07:35 Micro: Microbiology 08/24/23 09:50 Gram Stain - Final Lung Left Lower Lobe Bronchoalveolar Lavage Culture - Preliminary Coag positive Staphylococcus A&P Assessment and plan (1) Altered mental status: Qualifiers: Altered mental status type: unspecified Qualified Code(s): R41.82 - Altered mental status, unspecified (2) Acute hypoxic respiratory failure: (3) Septic shock: (4) Collapse of left lung: (5) Aspiration pneumonia: Qualifiers: Aspiration pneumonia type: due to vomit Laterality: left Lung location: lower lobe of lung Qualified Code(s): J69.0 - Pneumonitis due to inhalation of food and vomit (6) Diabetic ketoacidosis: Qualifiers: Diabetes mellitus type: type 2 Diabetes mellitus complication detail: w ith coma Qualified Code(s): E11.11 - Type 2 diabetes mellitus with ketoacidosis with coma (7) Acute renal failure: Qualifiers: Acute renal failure type: unspecified Qualified Code(s): N17.9 - Acute kidney failure, unspecified (8) NSTEMI (non-ST elevated myocardial infarction): (9) Lactic acidosis: (10) Uncontrolled diabetes mellitus: Qualifiers: Diabetes mellitus type: type 2 Glycemic state: with hyperglycemia Qualified Code(s): E11.65 - Type 2 diabetes mellitus with hyperglycemia (11) Staphylococcus aureus pneumonia: (12) Pneumonia due to COVID-19 virus: (13) Hypophosphatemia: Plan ASSESSMENT/PLAN:Overall: 82-year-old elderly lady with past medical history of diabetes noncompliant, A- fib with RVR-presented to ER being unresponsive likely secondary to DKA likely due to non compliant with treatments and aspiration pneumonia. Patient is also in hypovolemic/septic shock, hypernatremia. NEURO: # Altered mental status-secondary to DKA/sepsis/hypernatremia -Head CT 08/22/2023-no acute changes -Held off sedation however there is no improvement in mentation-repeat CT head -Treat underlying sepsis/hypernatremia PULM: # Acute respiratory failure-likely secondary to aspiration pneumonia # Staph aureus pneumonia #COVID-19 PCR antigen positive -Intubated and sedated -Currently on CMV 350/PEEP 10/and FiO2 60%-ABG 7.44/24/63/17 -CT chest showed left lower lobe collapse likely secondary to fluid and secretions; review of her CT chest report from 08/09/2023 at [facility]-showed mild tubular bronchiectasis but did not show any lung collapse. So malignancy unlikely -Chest x-ray still showing bibasilar infiltrates worse on the left -Performed bronchoscope 08/24/2023-showed hyperemic left lower lobe airways with mucosal thickening and purulent mucoid secretions- BAL sent for cultures -Sputum cultures positive for Staph aureus-Patient covered with meropenem and vancomycin-she has penicillin allergy -COVID PCR positive-patient on airborne and contact isolation CVS: # Shock-sepsis versus hypovolemic -Currently on Levophed -recommended to give albumin 3 doses -Current recovered with antibiotics for staph pneumonia -Monitor blood pressure, lactic acid -Target MAP > 65 -Significantly elevated BNP -Echocardiogram 08/23/2023-normal LV function # Troponinemia-likely secondary to demand ischemia -Initial troponin 478-2 hours later 437?troponin -41 -EKG no ST-T wave changes -We can discontinue heparin # A-fib with RVR -Patient is on amiodarone drip and digoxin - on Eliquis held due to brownish NG aspirate GI: # Diet: Start trickle feeding # GI prophylaxis: PPI RENAL: # Anion gap acidosis-improving -Likely due to lactic acidosis secondary to septic shock -Serum ketones are negative-this likely DKA # GISELLA-likely secondary to [id number] -Monitor renal functions closely -Patient is receiving IV fluids as well as pressor support to maintain MAP greater than 65 HEM: # DVT prophylaxis: Currently on Eliquis - held due to brownish NG aspirate ENDO: # Diabetes mellitus-patient not on medications # Serum ketones are negative-less likely DKA -Closely monitor electrolytes, glucose, anion gap ID: # Likely patient in septic shock secondary to Staph aureus pneumonia # COVID PCR positive -CT chest 08/22/2023 showed left lower lobe atelectasis and consolidation likely secondary to aspirated material (CT chest report from [facility] 08/08/2023-did not show any abnormality -Hence less likely malignancy) -Performed bronchoscope 08/24/2023-showed hyperemic left lower lobe airways with mucosal thickening and purulent mucoid secretions- BAL cultures - positive for coag positve staph -Sputum cultures positive for Staph aureus-Patient covered with meropenem and vancomycin-she has penicillin allergy -COVID PCR positive-patient on airborne and contact isolation Code Status: DNR/DNI Disposition: ICU Critically ill:Yes MD discussed with: ED physician, hospitalist taking care of the patient, RN, RT ICU CHECKLIST: Problem list updated Verbal orders reviewed and signed Analgesia: Fentanyl Glycemic Control: Will put her on scale coverage Nutrition: N.p.o. for now Restraint Renewal (within 24 hrs): Yes Ulcer Prophylaxis: PPI Chemical Thromboprophylaxis: Prophylaxis:Elliquis held due brown aspirate Mechanical Thromboprophylaxis: SCDs Need for Central line: Right subclavian Need for Valenzuela catheter: Yes Family updated: Yes Attestations 2 Medical Necessity Statement*: Still intubated, septic shock-need close ICU monitoring Time Spent in Patient Care: Greater than 35 minutes (>than 50% of time spent in counselling and/or direct pt care on unit) . Critical Care Time: The high probability of a clinically significant, sudden or life threatening deterioration of the patient's [Neurology, pulmonary, cardiac, renal, endocrine, infectious] system(s) required my full and direct attention, intervention and personal management. The critical care time is as shown. This time is in addition to time spent performing any reported procedures but includes the following: [x] Data and vital sign review and interpretation [x] Patient assessment, examination and intervention [x] Documentation [x] Medication orders and management Critical Care Time (min): 58 Coding Level of Care Code Acute Code for Chg Fwd Diagnoses Altered mental status, unspecified altered mental status type R41.82 Altered mental status type: unspecified Acute hypoxic respiratory failure J96.01 Septic shock A41.9; R65.21 Collapse of left lung J98.11 Aspiration pneumonia of left lower lobe due to vomit J69.0 Aspiration pneumonia type: due to vomit Laterality: left Lung location: lower lobe of lung Diabetic ketoacidosis with coma associated with type 2 diabetes mellitus E11.11 Diabetes mellitus type: type 2 Diabetes mellitus complication detail: with coma Acute renal failure, unspecified acute renal failure type N17.9 Acute renal failure type: unspecified NSTEMI (non-ST elevated myocardial infarction) I21.4 Lactic acidosis E87.20 Uncontrolled type 2 diabetes mellitus with hyperglycemia E11.65 Diabetes mellitus type: type 2 Glycemic state: with hyperglycemia Staphylococcus aureus pneumonia J15.211 Pneumonia due to COVID-19 virus U07.1; J12.82 Hypophosphatemia E83.39 Time Spent (min) 59
[2023-08-26] MEDS: remdesivir 100 MG in sodium chloride 0.9% (100 ml) 80 ML IV (15:17)
[2023-08-26 17:42] LABS: Ketone (Acetest) Serum Negative (Negative)
[2023-08-26] MEDS: pantoprazole 40 mg SDV IVP (18:02)
--- NOTE | 2023-08-26 18:14 | P.PN_ITS ---
Subjective 2 Subjective: Patient was examined multiple times throughout the morning, ? She was seen this morning, she does develop A-fib with RVR, heart rates in the 120s, but does improve, into the low 100s, ? She still on Levophed, at 4, ? Her oxygen requirements are improving, ? She does have low-grade fevers, ? Has good urine output, ? Spoke to pulmonary critical care, continue to keep off sedation, Is off sedation, she is intermittent gag reflex and does not withdraw from pain, pupils are reactive to light, does not withdraw from pain, does not follow commands, does not track,, ? Concerns for possible encephalopathy, possible hypoxic injury, as she is nonresponsive, she does not withdraw from pain this morning, pupils are reactive, but does not withdraw from pain, does not follow commands, does not track, I could not get a cough reflex, I could not get a gag reflex, she has been off sedation for the last 48 hours, ? I spoke to son in detail this afternoon, discussed clinical status, her fever trend is improving white blood cell count is improving we know what is going in the sputum cultures and Staph aureus, it seems like the infection is under control she continues to have episode of A-fib but becoming more under control she still remains on Levophed, still to some degree shock, her renal function is improving, we did discuss possibility of dialysis, he is agreeable to dialysis if needed,, but he does understand our concerns for possible hypoxic injury, poor neurologic outcome, and if that was the case, he would want her to just be comfortable and for us to stop all interventions but for now he wants to continue all interventions for now and for us to continue to monitor, ? Plan is to continue to monitor mental status continue off sedation, ? She did have increased anion gap metabolic acidosis this morning was given bicarb, blood sugars in the 300s, given 10 units of Lantus, pH 7.31, ? Pressures improving with bicarb we will give another dose of bicarb, blood sugars are more reasonable in the 230s -Initial lactic acid 9, now trending [place] nwards to 7, still on 4 of Levophed, ? Again patient seen throughout the evening, does not respond to commands does not follow commands, does not withdraw from pain, will continue to monitor for next 24 hours, monitor blood sugars closely, resume Eliquis tonight, INR has trended down to within normal limits Vitals/I&O/Wt Last Vital Signs Temp 99 F 08/26/23 12:00 Pulse 86 08/26/23 16:15 Resp 12 08/26/23 15:49 BP 112/54 08/26/23 16:15 Pulse Ox 93 08/26/23 16:15 O2 Del Method Mechanical Ventilation 08/26/23 12:00 O2 Flow Rate 15 08/22/23 12:15 FiO2 35 08/26/23 15:49 08/26/23 08/26/23 08/26/23 06:59 14:59 22:59 Intake Total 349.678 / 1238.578 243.294 / 243.294 Output Total 550 / 875 400 / 400 Balance -200.322 / 363.578 -156.706 / -156.706 Weight last 48 hrs Weight 47.99 kg Weight 48.988 kg Data 08/26/23 07:26 08/26/23 07:26 Micro: Microbiology 08/24/23 09:50 Gram Stain - Final Lung Left Lower Lobe Bronchoalveolar Lavage Culture - Final Staphylococcus aureus A&P Assessment and plan (1) Acute hypoxic respiratory failure: (2) Unresponsiveness: (3) Septic shock: (4) Lactic acidosis: (5) Metabolic acidosis: (6) NSTEMI (non-ST elevated myocardial infarction): (7) Acute renal failure: Qualifiers: Acute renal failure type: unspecified Qualified Code(s): N17.9 - Acute kidney failure, unspecified (8) Hypernatremia: (9) Hypokalemia: (10) Atrial fibrillation with RVR: (11) Increased anion gap metabolic acidosis: (12) Aspiration pneumonia: Qualifiers: Aspiration pneumonia type: due to vomit Laterality: left Lung location: lower lobe of lung Qualified Code(s): J69.0 - Pneumonitis due to inhalation of food and vomit (13) Collapse of left lung: (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 Concerns for encephalopathy related to a reversible causes, possible anoxic injury, ? Reversible causes include sepsis, lactic acidosis, uremia ? Continue to monitor mentation closely ? No cough reflex, no gag reflex, does not withdraw from pain, does have pupillary reflex, does not follow commands Acute hypoxic respiratory failure ? Secondary to aspiration, ? Secondary to left lower lobe lung collapse, pneumonia, sputum culture showing Staph aureus ? Staph aureus pneumonia ? COVID-19 pneumonia ? Plan, ?Status post bronchoscopy ? Continue ICU level monitoring, ? Continue intubation, ? Minimize tidal volume, minimize FiO2, ? Fentanyl, Versed, propofol for sedation, ? Monitor respiratory status closely, ? Continue broad-spectrum tract therapy vancomycin, meropenem, ? On remdesivir, Decadron for COVID-19 pneumonia ? Isolation precautions ? Patient's son tells me that if her condition worsens, she deteriorates on the ventilator, he wants us to proceed with just making her comfortable, and easing her pes and easing her suffering allowing her to pass out comfortably, ? Pulmonary critical care has been consulted, plans on possible bronchoscopy when patient is more stabl COVID-19 pneumonia, ? As above Staph aureus pneumonia, on vancomycin Septic shock, remains on Levophed -COVID-19 pneumonia ? Secondary to pneumonia ? Sputum cultures ? Blood cultures, ? Respiratory viral panel, ? Broad-spectrum antibiotic therapy vancomycin, meropenem ? Monitor lactic acid ? Monitor clinical status closely ? Continue Levophed, maintain MAP more than 65, Left lower lobe lung collapse, ? Pulmonary critical care consulted, ? Stat post bronchoscopy Hypokalemia, resolving Hypernatremia likely sec to dehydration, IV fluids, Diabetic ketoacidosis, resolved -Lantus 10 units every morning, will give another 5 units this evening, ? Moderate dose sliding scale A-fib with RVR ? Amiodarone drip, p.o. amiodarone ? Status post amiodarone bolus, status post digoxin -Continue Eliquis NSTEMI, ? Type I versus type II, ? Cannot rule out underlying cardiology given type 2 diabetes mellitus, poorly controlled, ? Cardiac echo, ? Continue eliquis History of nosebleed, Increased anion gap metabolic acidosis, ? Multifactorial from sepsis, septic shock, diabetic ketoacidosis, ? Recheck BMP, ketones, 2 doses of bicarb Anorexia, BMI 15.9, Poorly controlled type 2 diabetes mellitus, as above Acute renal failure, likely sec to dehydration, nausea, vomiting, diarrhea, diabetic ketoacidosis, sepsis, septic shock ? Monitor urine output, ? Monitor creatinine, monitor potassium, Possible Listeria food poisoning, ? I looked up patient's sons reported ice cream, it is a [employer] brand, home style home style ice cream, ? Its not part of the recall, I also visited the [facility] website, the [place] website and it was not part of the recalls, ? But I will give patient benefit of the doubt, as apparently according to the son he was called and told that she had a Listeria infection I am not sure if this was [facility] ? I will get records from [facility] I did call them however their medical record department was closed, ? For now I will place her on meropenem for coverage Goals of care discussion, patient's son tells me that he does not want his mom to get CPR, he does not want to have overly aggressive interventions, if her condition were to deteriorate, he just wants her to be comfortable Elevated INR, resolved Patient was examined multiple times throughout the morning, ? She was seen this morning, she does develop A-fib with RVR, heart rates in the 120s, but does improve, into the low 100s, ? She still on Levophed, at 4, ? Her oxygen requirements are improving, ? She does have low-grade fevers, ? Has good urine output, ? Spoke to pulmonary critical care, continue to keep off sedation, Is off sedation, she is intermittent gag reflex and does not withdraw from pain, pupils are reactive to light, does not withdraw from pain, does not follow commands, does not track,, ? Concerns for possible encephalopathy, possible hypoxic injury, as she is nonresponsive, she does not withdraw from pain this morning, pupils are reactive, but does not withdraw from pain, does not follow commands, does not track, I could not get a cough reflex, I could not get a gag reflex, she has been off sedation for the last 48 hours, ? I spoke to son in detail this afternoon, discussed clinical status, her fever trend is improving white blood cell count is improving we know what is going in the sputum cultures and Staph aureus, it seems like the infection is under control she continues to have episode of A-fib but becoming more under control she still remains on Levophed, still to some degree shock, her renal function is improving, we did discuss possibility of dialysis, he is agreeable to dialysis if needed,, but he does understand our concerns for possible hypoxic injury, poor neurologic outcome, and if that was the case, he would want her to just be comfortable and for us to stop all interventions but for now he wants to continue all interventions for now and for us to continue to monitor, ? Plan is to continue to monitor mental status continue off sedation, ? She did have increased anion gap metabolic acidosis this morning was given bicarb, blood sugars in the 300s, given 10 units of Lantus, pH 7.31, ? Pressures improving with bicarb we will give another dose of bicarb, blood sugars are more reasonable in the 230s -Initial lactic acid 9, now trending downwards to 7, still on 4 of Levophed, ? Again patient seen throughout the evening, does not respond to commands does not follow commands, does not withdraw from pain, will continue to monitor for next 24 hours, monitor blood sugars closely, resume Eliquis tonight, INR has trended down to within normal limits Attestations 2 Medical Necessity Statement*: Patient requires hospitalization for Staph aureus pneumonia, acute encephalopathy, concerns for hypoxic brain injury, elevated anion gap metabolic acidosis, elevated blood sugars, A-fib, shock, sepsis, respiratory failure, intubated, renal failure Coding Level of Care Code Critical Care >/= 30 minutes Critical care time (in minutes): 45 The high probability of a clinically significant, sudden or life threatening deterioration, as referenced in this documentation, required my full and direct attention, intervention and personal management. The critical care time shown is in addition to time spent performing any reported separately billable procedures and includes the following: [x] Data and vital sign review and interpretation [x ] Patient assessment, examination and intervention [x] Medication orders and management [x] Patient/Family updates as able [x] Care Coordination and Documentation. Diagnoses Acute hypoxic respiratory failure J96.01 Unresponsiveness R41.89 Septic shock A41.9; R65.21 Lactic acidosis E87.20 Metabolic acidosis E87.20 NSTEMI (non-ST elevated myocardial infarction) I21.4 Acute renal failure, unspecified acute renal failure type N17.9 Acute renal failure type: unspecified Hypernatremia E87.0 Hypokalemia E87.6 Atrial fibrillation with RVR I48.91 Increased anion gap metabolic acidosis E87.29 Aspiration pneumonia of left lower lobe due to vomit J69.0 Aspiration pneumonia type: due to vomit Laterality: left Lung location: lower lobe of lung Collapse of left lung J98.11 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
--- NOTE | 2023-08-26 18:28 | CTR_ITS ---
PROCEDURE INFORMATION: Exam: CT Head Without Contrast Exam date and time: 08/26/2023 8:49 PM Age: 82 years old Clinical indication: Other: Encepahlopathy TECHNIQUE: Imaging protocol: Computed tomography of the head without contrast. Radiation optimization: All CT scans at this facility use at least one of these dose optimization techniques: automated exposure control; mA and/or kV adjustment per patient size (includes targeted exams where dose is matched to clinical indication); or iterative reconstruction. REPORTING DATA: Count of CT and Cardiac NM exams in prior 12 months: This patient has received 2 known CTs and 0 known cardiac nuclear medicine studies in the 12 months prior to the current study. COMPARISON: CT head wo con* [id number] 08/22/2023 1:54 PM RADIATION DOSE METRICS: Total DLP (mGy-cm): 1008.34 FINDINGS: Brain: There are global involutional changes of the brain which are in keeping with the patient's age. Periventricular hypodensities are nonspecific but most likely reflect chronic microvascular ischemic disease. There is no acute intracranial hemorrhage or abnormal extra-axial fluid collection identified. There is no intracranial mass effect or shift of midline structures. The marte-white differentiation is preserved throughout. There is no sulcal effacement. The basilar cisterns are open. Cerebral ventricles: No hydrocephalus or ventricular effacement. Paranasal sinuses: An air-fluid level is seen in the right sphenoid sinus. Mastoid air cells: Bilateral mastoid effusions. Bones/joints: No calvarial fracture or destructive osseous lesions are seen. Soft tissues: Unremarkable. Vasculature: Atherosclerotic vascular disease is noted at the level of the skull base. CT/CT head wo con* [id number] IMPRESSION: 1. No acute intracranial hemorrhage, mass effect or midline shift. 2. Involutional changes of the brain in keeping with the patient's age, with findings of chronic microvascular ischemic disease.
--- NOTE | 2023-08-26 19:18 | PC.NURSE ---
SHift SUmmary: Uneventful shift. Acidotic today requiring bicarb. After bolus of amiodarone and bicarb heart rate improved, still afib, but more controlled in the 80-90's range. Levophed has varied between 0-6MCG, usually requiring less shortly after bicarb push is given. TOtal urine output has been 500mL. Patient is still unresponsive to painful stimuli, will open eyes, but do so to command and does not track objects.
[2023-08-26 20:40] LABS: Glucose Point of Care 181 mg/dL (70-110)
[2023-08-26] MEDS: vancomycin 500 MG in sodium chloride 0.9% (plus) 100 ML 200 MG IV (21:22)
[2023-08-26] MEDS: apixaban 5 mg Tablet PO (21:24)
[2023-08-26] MEDS: insulin glargine 100 units/1 mL 5 UNIT SUBCUT (21:24)
[2023-08-26 22:14] LABS: Ketone (Acetest) Serum Negative (Negative)
[2023-08-26 22:23] LABS: Anion Gap 19.5 (5-19); Blood Urea Nitrogen 57 mg/dL (8-23); Calcium 7.5 mg/dL (8.5-10.5); Carbon Dioxide 24 mmol/L (22-29); Chloride 104 mmol/L (98-107); Glucose 153 mg/dL (65-115); Osmolality Calculated 317 mOsm/kg (285-295); Potassium 3.5 mmol/L (3.5-5.1); Sodium 144 mmol/L (136-145)
[2023-08-26 22:28] LABS: Lactate (Lactic Acid level) 5.1 mmol/L (0.5-2.2)
[2023-08-27] VITALS (34 sets, daily range): BP systolic 105–139; BP diastolic 54–80; PULSE 80–108; RESP 11–18; TEMP 35.9–36.6; O2SAT 93–98
[2023-08-27] MEDS: albumin 25 G/100 ML BAG 60 G IV ×2 (03:41→10:44)
[2023-08-27 04:26] LABS: Basophils # 0.1 10^3/uL (0.0-0.1); Basophils % 0.6 %; Eosinophils % 0.2 %; Hematocrit 31.8 % (36-47); Lymphocytes # 0.7 10^3/uL (0.8-4.8); Lymphocytes % 8.6 %; Mean Corpuscular HGB Conc 34.6 g/dL (30-55); Mean Corpuscular Volume 92.4 fl (85-98); Monocytes # 0.3 10^3/uL (0.2-0.9); Monocytes % 3.3 %; Neutrophils # 7.16 10^3/uL (1.8-7.7); Neutrophils % 83.6 %; Nucleated Red Blood Cells % 0 %; Red Blood Count 3.44 10^6/uL (3.85-5.65); Red Cell Distribution Width 15.6 % (12.1-15.1); White Blood Count 8.57 10^3/uL (3.29-11.43)
[2023-08-27 04:33] LABS: INR 2.08 (0.8-1.2)
[2023-08-27 04:34] LABS: D Dimer 0.99 ug/mLFEU (0-0.59)
[2023-08-27 04:48] LABS: Lactate (Lactic Acid level) 2.9 mmol/L (0.5-2.2)
[2023-08-27 04:57] LABS: Slide Review Slide Review Perform
[2023-08-27 04:58] LABS: NT Pro B Type Natriuretic Pept 2438 pg/mL (0-450); Procalcitonin 4.37 ng/mL (0-0.5)
[2023-08-27 05:00] LABS: Platelet Count 25 10^3/cmm (157-399)
[2023-08-27 05:09] LABS: Alanine Aminotransferase 28 U/L (0-33); Albumin Level 2.8 g/dL (3.5-5.2); Alkaline Phosphatase 183 U/L (35-105); Anion Gap 16.6 (5-19); Aspartate Amino Transferase 17 U/L (0-32); Blood Urea Nitrogen 50 mg/dL (8-23); Calcium 7.7 mg/dL (8.5-10.5); Carbon Dioxide 25 mmol/L (22-29); Chloride 104 mmol/L (98-107); Creatine Phosphokinase 170 U/L (26-192); Glucose 168 mg/dL (65-115); Magnesium 1.7 mg/dL (1.7-2.3); Osmolality Calculated 311 mOsm/kg (285-295); Phosphorus 3.3 mg/dL (2.5-4.5); Potassium 3.6 mmol/L (3.5-5.1); Sodium 142 mmol/L (136-145); Total Bilirubin 1.1 mg/dL (0.15-1.2); Total Protein 4.8 g/dL (6.6-8.7)
[2023-08-27 05:15] LABS: ABG PCO2 39.2 mmHg (35-45); ABG PH Result 7.45 (7.35-7.45); Arterial Blood Gas Hematocrit 31.3 % (37-47); Base Excess ABG 3.3 mmol/L (-2.0-2.0); Blood Gas Allen Test Pos; Blood Gas Sample Site Radial, right; Blood Gas Sample Type Arterial; HCO3 ABG 27.4 mmol/L (22-26); Oxygen Device VENT; PO2 ABG 73.4 mmHg (80.0-100.0); PO2 FiO2 Ratio Arterial Blood 0
[2023-08-27 07:24] LABS: Glucose Point of Care 234 mg/dL (70-110)
[2023-08-27] MEDS: meropenem 500 MG in sodium chloride 0.9% (plus) 50 ML 100 MG IV ×2 (07:45→20:37)
[2023-08-27 07:54] LABS: Glucose Point of Care 173 mg/dL (70-110)
[2023-08-27] MEDS: insulin lispro 100 unit/1 mL SUBCUT ×2 (08:03→12:02)
[2023-08-27 09:01] LABS: Lactate Dehydrogenase 246 U/L (135-214)
[2023-08-27 09:25] LABS: LAB Peripheral Smear Sent for Review
--- NOTE | 2023-08-27 09:35 | PC.NURSE ---
929 Called son, Michele, obtained verbal permission for platelets to be given. Michele states he lives 100 miles away, was here yesterday, does not plan to come in today. I notified him the plan to turn off all sedation and let her wake up and see how alert she is.
[2023-08-27 09:43] LABS: Reflex FDPQ test REFLEX FDP QUEST TES
[2023-08-27] MEDS: insulin glargine 100 units/1 mL 5 UNIT SUBCUT ×2 (09:56→20:38)
--- NOTE | 2023-08-27 09:59 | PC.SOCIAL ---
IMM Update IMM not updated with pt. Pt is still extubated. Pt is not expected to d/c within the next 24-48hrs.
[2023-08-27 10:00] LABS: INR 2.02 (0.8-1.2)
[2023-08-27] MEDS: FUROsemide 10 mg/mL SDV 4mL 40 MG IVP (10:00)
[2023-08-27 10:01] LABS: Fibrinogen 363 mg/dL (174-498); Partial Thromboplastin Time 38.3 SECONDS (23.9-36.7)
[2023-08-27 10:04] LABS: D Dimer 0.96 ug/mLFEU (0-0.59)
[2023-08-27] MEDS: amiodarone 200 mg Tablet 400 MG PO ×2 (10:44→17:51)
[2023-08-27] MEDS: phosphorus 250 mg Tablet PO ×2 (10:44→17:51)
[2023-08-27 11:56] LABS: Glucose Point of Care 159 mg/dL (70-110)
--- NOTE | 2023-08-27 13:06 | PC.NURSE ---
1230 warm blanket placed next to patient and extra blankets added.
--- NOTE | 2023-08-27 13:33 | PC.NURSE ---
1325 started unit of platlets, using blood tubing with 170mcg filter as recommended by blood bank since no platelet tubing can be found by charge nurse, by pharmacy and by blood bank.
[2023-08-27] MEDS: remdesivir 100 MG in sodium chloride 0.9% (100 ml) 80 ML IV (14:13)
[2023-08-27 14:49] LABS: Clostridium Difficile PCR NOT DETECTED (NOT DETECTED)
--- NOTE | 2023-08-27 15:07 | PC.NURSE ---
1430 Platelets infused and complete. No reaction noted. Vitals recorded inTAR.
--- NOTE | 2023-08-27 15:09 | PM.PN ---
Subjective Subjective: Patient was examined multiple times throughout the morning into the afternoon, ? Early in the morning she was seen, she is off pressors, heart rates are well controlled, A-fib, on 0.5 of amiodarone, -Urine output is decent overnight, ? Remains normotensive ? Remains afebrile, ? Is on 35% FiO2 ? Initially she was on 25 mcg of fentanyl, which was turned off, ? She was examined extensively, she does not withdraw from pain, Babinski's upward going bilaterally, she does withdraw from the light, pupils are equal round reactive to light, she does not track, she does blink, she does wince in pain as if she is in pain, she does not respond to her name, she has a cough reflex she has a gag reflex ? Platelet count was 25,000, HIT panel ordered, will give 1 unit platelet recheck CBC in the afternoon, ? Held Eliquis, ? She also has evidence of fluid overload, 1+ pitting edema, will give her 1 dose of Lasix Vitals/I&O/Wt Last Vital Signs Temp 97.6 F 08/27/23 14:30 Pulse 86 08/27/23 14:30 Resp 18 08/27/23 14:50 BP 117/62 08/27/23 14:30 Pulse Ox 95 08/27/23 14:50 O2 Del Method Mechanical Ventilation 08/27/23 04:00 O2 Flow Rate 15 08/22/23 12:15 FiO2 35 08/27/23 14:50 08/27/23 08/27/23 08/27/23 06:59 14:59 22:59 Intake Total 100 / 1259.998 600.042 / 600.042 Output Total 1500 / 2000 Balance -1400 / -740.002 600.042 / 600.042 Weight last 48 hrs Weight 48.172 kg Weight 47.99 kg Physical Exam Const: COMMON NORMALS: no acute distress Resp: COMMON NORMALS: normal respiratory effort, No retractions, No use of accessory muscles and clear to auscultation bilaterally AUSCULTATION: clear to auscultation bilaterally Cardio: COMMON NORMALS: regular rate, regular rhythm, S1 normal heart sound present and S2 normal heart sound present RATE: regular rate RHYTHM: regular rhythm HEART SOUNDS: S1 normal heart sound present and S2 normal heart sound present GI: COMMON NORMALS: Normal to inspection, nondistended, normoactive bowel sounds present and non-tender Extremity: COMMON NORMALS: no pedal edema Data 08/27/23 03:53 08/27/23 03:53 Micro: Microbiology 08/22/23 12:53 Blood Culture - Final Blood NO GROWTH AFTER 5 DAYS 08/22/23 12:52 Blood Culture - Final Blood NO GROWTH AFTER 5 DAYS 08/24/23 09:50 Gram Stain - Final Lung Left Lower Lobe Bronchoalveolar Lavage Culture - Final Staphylococcus aureus A&P Assessment and plan (1) Acute hypoxic respiratory failure: (2) Unresponsiveness: (3) Septic shock: (4) Lactic acidosis: (5) Metabolic acidosis: (6) NSTEMI (non-ST elevated myocardial infarction): (7) Acute renal failure: Qualifiers: Acute renal failure type: unspecified Qualified Code(s): N17.9 - Acute kidney failure, unspecified (8) Hypernatremia: (9) Hypokalemia: (10) Atrial fibrillation with RVR: (11) Increased anion gap metabolic acidosis: (12) Aspiration pneumonia: Qualifiers: Aspiration pneumonia type: due to vomit Laterality: left Lung location: lower lobe of lung Qualified Code(s): J69.0 - Pneumonitis due to inhalation of food and vomit (13) Collapse of left lung: (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 Concerns for encephalopathy related to a reversible causes, possible anoxic injury, ? Reversible causes include sepsis, lactic acidosis, uremia ? Continue to monitor mentation closely Acute hypoxic respiratory failure ? Secondary to aspiration, ? Secondary to left lower lobe lung collapse, pneumonia, sputum culture showing Staph aureus ? Staph aureus pneumonia ? COVID-19 pneumonia ? Plan, ?Status post bronchoscopy ? Continue ICU level monitoring, ? Continue intubation, ? Minimize tidal volume, minimize FiO2, ? Fentanyl, Versed, propofol for sedation, ? Monitor respiratory status closely, ? Continue broad-spectrum tract therapy vancomycin, meropenem, ? On remdesivir, Decadron for COVID-19 pneumonia completed ? Isolation precautions ? Patient's son tells me that if her condition worsens, she deteriorates on the ventilator, he wants us to proceed with just making her comfortable, and easing her pes and easing her suffering allowing her to pass out comfortably, ? Pulmonary critical care has been consulted, plans on possible bronchoscopy when patient is more stabl COVID-19 pneumonia, ? As above Staph aureus pneumonia, on vancomycin Septic shock, remains on Levophed, resolved -COVID-19 pneumonia ? Secondary to pneumonia ? Sputum cultures ? Blood cultures, ? Respiratory viral panel, ? Broad-spectrum antibiotic therapy vancomycin, meropenem ? Monitor lactic acid ? Monitor clinical status closely ? Continue Levophed, maintain MAP more than 65, Left lower lobe lung collapse, ? Pulmonary critical care consulted, ? Stat post bronchoscopy Hypokalemia, resolving Hypernatremia, resolved Diabetic ketoacidosis, resolved -Lantus, 5 units subcu 12 hours ? Moderate dose sliding scale A-fib with RVR ? p.o. amiodarone ? Status post amiodarone bolus, status post digoxin -Continue Eliquis NSTEMI, ? Type I versus type II, ? Cannot rule out underlying cardiology given type 2 diabetes mellitus, poorly controlled, ? Cardiac echo, ? Continue eliquis History of nosebleed, Increased anion gap metabolic acidosis, resolved ? Multifactorial from sepsis, septic shock, diabetic ketoacidosis, ? Recheck BMP, ketones, 2 doses of bicarb Anorexia, BMI 15.9, Poorly controlled type 2 diabetes mellitus, as above Acute renal failure, likely sec to dehydration, nausea, vomiting, diarrhea, diabetic ketoacidosis, sepsis, septic shock ? Monitor urine output, ? Monitor creatinine, monitor potassium, Possible Listeria food poisoning, ? I looked up patient's sons reported ice cream, it is a [employer] brand, home style home style ice cream, ? Its not part of the recall, I also visited the [facility] website, the [place] website and it was not part of the recalls, ? But I will give patient benefit of the doubt, as apparently according to the son he was called and told that she had a Listeria infection I am not sure if this was [facility] ? I will get records from [facility] I did call them however their medical record department was closed, ? For now I will place her on meropenem for coverage Goals of care discussion, patient's son tells me that he does not want his mom to get CPR, he does not want to have overly aggressive interventions, if her condition were to deteriorate, he just wants her to be comfortable Elevated INR, resolved Patient was examined multiple times throughout the morning into the afternoon, ? Early in the morning she was seen, she is off pressors, heart rates are well controlled, A-fib, on 0.5 of amiodarone, -Urine output is decent overnight, ? Remains normotensive ? Remains afebrile, ? Is on 35% FiO2 ? Initially she was on 25 mcg of fentanyl, which was turned off, ? She was examined extensively, she does not withdraw from pain, Babinski's upward going bilaterally, she does withdraw from the light, pupils are equal round reactive to light, she does not track, she does blink, she does wince in pain as if she is in pain, she does not respond to her name, she has a cough reflex she has a gag reflex ? Platelet count was 25,000, HIT panel ordered, will give 1 unit platelet recheck CBC in the afternoon, ? Held Eliquis, ? She also has evidence of fluid overload, 1+ pitting edema, will give her 1 dose of Lasix \ Attestations Medical Necessity Statement*: Patient requires hospitalization for acute respiratory failure, sepsis, pneumonia, Staph aureus pneumonia, COVID-19, atrial fibrillation, concerns for acute encephalopathy, concerns for anoxic brain injury, respiratory failure on a ventilator Coding Level of Care Code Critical Care >/= 30 minutes Critical care time (in minutes): 45 The high probability of a clinically significant, sudden or life threatening deterioration, as referenced in this documentation, required my full and direct attention, intervention and personal management. The critical care time shown is in addition to time spent performing any reported separately billable procedures and includes the following: [x] Data and vital sign review and interpretation [x] Patient assessment, examination and intervention [x] Medication orders and management [x] Patient/Family updates as able [x] Care Coordination and Documentation. Diagnoses Acute hypoxic respiratory failure J96.01 Unresponsiveness R41.89 Septic shock A41.9; R65.21 Lactic acidosis E87.20 Metabolic acidosis E87.20 NSTEMI (non-ST elevated myocardial infarction) I21.4 Acute renal failure, unspecified acute renal failure type N17.9 Acute renal failure type: unspecified Hypernatremia E87.0 Hypokalemia E87.6 Atrial fibrillation with RVR I48.91 Increased anion gap metabolic acidosis E87.29 Aspiration pneumonia of left lower lobe due to vomit J69.0 Aspiration pneumonia type: due to vomit Laterality: left Lung location: lower lobe of lung Collapse of left lung J98.11 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
[2023-08-27 17:46] LABS: Glucose Point of Care 86 mg/dL (70-110)
[2023-08-27] MEDS: pantoprazole 40 mg SDV IVP (17:50)
[2023-08-27] MEDS: vancomycin 500 MG in sodium chloride 0.9% (plus) 100 ML 200 MG IV (20:38)
[2023-08-27 22:37] LABS: Glucose Point of Care 106 mg/dL (70-110)
[2023-08-28] VITALS (31 sets, daily range): BP systolic 96–163; BP diastolic 56–112; PULSE 88–130; RESP 13–26; TEMP 35.7–36.5; O2SAT 92–97
[2023-08-28] MEDS: chlorhexidine gluconate 4% Btl 118 mL 1 APPLIC TOPICAL (02:26)
[2023-08-28 04:21] LABS: ABG PCO2 30.2 mmHg (35-45); Base Excess ABG 7.1 mmol/L (-2.0-2.0); Blood Gas Sample Site Brachial, right; Blood Gas Sample Type Arterial; HCO3 ABG 28.8 mmol/L (22-26); Oxygen Device VENT; PO2 FiO2 Ratio Arterial Blood 0
[2023-08-28 04:33] LABS: Fibrinogen Degradation Product 10 mcg/mL (LESS THAN 5)
[2023-08-28 06:29] LABS: Hematocrit 32.8 % (36-47); Mean Corpuscular HGB Conc 34.8 g/dL (30-55); Mean Corpuscular Hemoglobin 31.6 pg (27-33); Mean Corpuscular Volume 90.9 fl (85-98); Mean Platelet Volume 13.5 fL (7.4-10.4); Platelet Count 58 10^3/cmm (157-399); Red Blood Count 3.61 10^6/uL (3.85-5.65); Red Cell Distribution Width 15.1 % (12.1-15.1); White Blood Count 8.57 10^3/uL (3.29-11.43)
[2023-08-28 06:44] LABS: Glucose Point of Care 134 mg/dL (70-110)
[2023-08-28 06:54] LABS: C Reactive Protein 45.6 mg/L (0.0-4.9); Magnesium 1.7 mg/dL (1.7-2.3)
[2023-08-28 06:55] LABS: Alanine Aminotransferase 18 U/L (0-33); Albumin Level 3.1 g/dL (3.5-5.2); Alkaline Phosphatase 185 U/L (35-105); Anion Gap 18.2 (5-19); Aspartate Amino Transferase 18 U/L (0-32); Blood Urea Nitrogen 47 mg/dL (8-23); Calcium 8.2 mg/dL (8.5-10.5); Carbon Dioxide 25 mmol/L (22-29); Chloride 104 mmol/L (98-107); Glucose 107 mg/dL (65-115); Lactate (Lactic Acid level) 2.9 mmol/L (0.5-2.2); Osmolality Calculated 311 mOsm/kg (285-295); Potassium 3.2 mmol/L (3.5-5.1); Sodium 144 mmol/L (136-145); Total Bilirubin 2.7 mg/dL (0.15-1.2); Total Protein 5.1 g/dL (6.6-8.7)
[2023-08-28 06:56] LABS: INR 1.51 (0.8-1.2)
[2023-08-28 06:59] LABS: D Dimer 1.48 ug/mLFEU (0-0.59)
[2023-08-28 07:00] LABS: Cortisol Random 22.64 ug/dL (2.47-19.5)
[2023-08-28 07:01] LABS: NT Pro B Type Natriuretic Pept 4132 pg/mL (0-450); Procalcitonin 2.01 ng/mL (0-0.5)
[2023-08-28 07:12] LABS: Creatine Phosphokinase 90 U/L (26-192)
[2023-08-28 07:51] LABS: Slide Review Slide Review Perform
[2023-08-28 07:54] LABS: Absolute Neutrophil 8.1 10^3/cmm (1.4-6.5); Absolute Segmented Neutrophil 8.1 10/cmm (1.6-7.1); Eosinophils 0 %; Lymphocytes 3 %; Lymphocytes Absolute 0.3 10^3/cmm (1.2-3.4); Monocytes Absolute 0.2 10^3/cmm (0.1-0.6); Platelet Estimate Decreased (Normal); Segmented Neutrophils 95 %; Total Cells Counted 100 (0-100)
[2023-08-28 08:32] LABS: Glucose Point of Care 118 mg/dL (70-110)
[2023-08-28] MEDS: meropenem 500 MG in sodium chloride 0.9% (plus) 50 ML 100 MG IV ×2 (09:31→20:48)
[2023-08-28] MEDS: insulin glargine 100 units/1 mL 5 UNIT SUBCUT (09:35)
[2023-08-28] MEDS: phosphorus 250 mg Tablet PO ×2 (09:40→17:49)
[2023-08-28] MEDS: amiodarone 200 mg Tablet 400 MG PO ×2 (09:40→17:49)
[2023-08-28 13:17] LABS: Glucose Point of Care 143 mg/dL (70-110)
[2023-08-28] MEDS: insulin lispro 100 unit/1 mL SUBCUT (13:18)
--- NOTE | 2023-08-28 13:31 | P.PN_ITS ---
Subjective 2 Subjective: Patient seen at bedside multiple times today She opens eyes-withdraws to painful stimuli-does not follow commands Off pressors On minimal vent settings On and off goes into A-fib RVR but mostly controlled Other labs and imaging reviewed Goals of care discussion with son by the hospitalist-he wants to come tomorrow and visit the patient-leaning towards comfort care Medications: Reviewed: Yes Vitals/I&O/Wt Last Vital Signs Temp 96.3 F L 08/28/23 08:00 Pulse 119 H 08/28/23 10:00 Resp 25 H 08/28/23 11:42 BP 149/101 08/28/23 10:00 Pulse Ox 96 08/28/23 11:42 O2 Del Method Mechanical Ventilation 08/28/23 08:00 O2 Flow Rate 15 08/22/23 12:15 FiO2 35 08/28/23 11:42 08/27/23 08/28/23 08/28/23 22:59 06:59 14:59 Intake Total 50 / 650.042 Output Total 2300 / 2300 850 / 3150 Balance -2250 / -1649.958 -850 / -2499.958 Weight last 48 hrs Weight 110 lb Weight 106 lb 3.2 oz Physical Exam 2 Narrative: PHYSICAL EXAM: General: lying in bed, sedated and intubated. HEENT:NCAT, PERRLA, EOMI Neck: Supple Lungs: Improved breath sounds Heart: s1/s2, RRR Abd: soft, NT, ND, BS + Normoactive Extremities: No edema FOOT PIECE ASSEMBLER: sedated and limited FOOT PIECE ASSEMBLER exam possible. SKIN: no rash LDA: # CVC: Right subclavian 08/22/2020; right femoral line 08/22/2023 # Valenzuela: 08/22/2023 Data 08/28/23 05:30 08/28/23 05:30 Other Labs: Radiology Impressions Chest X-Ray 08/26/23 09:20 IMPRESSION: Decreased left basilar atelectasis and/or pneumonitis. Head CT 08/26/23 18:28 IMPRESSION: 1. No acute intracranial hemorrhage, mass effect or midline shift. 2. Involutional changes of the brain in keeping with the patient's age, with findings of chronic microvascular ischemic disease. Laboratory Results WBC 8.57 10^3/uL (3.29-11.43) 08/28/23 05:30 RBC 3.61 10^6/uL (3.85-5.65) L 08/28/23 05:30 Hgb 11.40 g/dL (11.27-16.99) 08/28/23 05:30 Hct 32.8 % (36-47) L 08/28/23 05:30 MCV 90.9 fl (85-98) 08/28/23 05:30 MCH 31.6 pg (27-33) 08/28/23 05:30 MCHC 34.8 g/dL (30-55) 08/28/23 05:30 RDW 15.1 % (12.1-15.1) 08/28/23 05:30 Plt Count 58 10^3/cmm (157-399) L D 08/28/23 05:30 MPV 13.5 fL (7.4-10.4) H 08/28/23 05:30 Neut % (Auto) 83.6 % 08/27/23 03:53 Lymph % (Auto) Not Reportable 08/28/23 05:30 [place] % (Auto) Not Reportable 08/28/23 05:30 Eos % (Auto) 0.2 % 08/27/23 03:53 Baso % (Auto) 0.6 % 08/27/23 03:53 Neut # (Auto) 7.16 10^3/uL (1.8-7.7) 08/27/23 03:53 Lymph # (Auto) Not Reportable 08/28/23 05:30 [place] # (Auto) Not Reportable 08/28/23 05:30 Eos # (Auto) 0.0 10^3/uL (0.0-0.8) 08/27/23 03:53 Baso # (Auto) 0.1 10^3/uL (0.0-0.1) 08/27/23 03:53 Nucleated RBC % (auto) 0 % 08/27/23 03:53 Total Counted 100 (0-100) 08/28/23 05:30 Atypical Lymphs % 0.0 % (0-5) 08/28/23 05:30 Absolute Neutrophils 8.1 10^3/cmm (1.4-6.5) H 08/28/23 05:30 Segmented Neutrophils 95 % 08/28/23 05:30 Abs Segm Neuts (Man) 8.1 10/cmm (1.6-7.1) H 08/28/23 05:30 Band Neutrophils 0.0 % 08/28/23 05:30 Abs Band Neuts (Man) 0.0 10^3/cmm (0.0-1.2) 08/28/23 05:30 Absolute Lymphocytes 0.3 10^3/cmm (1.2-3.4) L 08/28/23 05:30 Lymphocytes (Manual) 3 % 08/28/23 05:30 Monocytes (Manual) 2.0 % 08/28/23 05:30 Absolute Monocytes 0.2 10^3/cmm (0.1-0.6) 08/28/23 05:30 Eosinophils (Manual) 0 % 08/28/23 05:30 Absolute Eosinophils 0.0 10^3/cmm (0.0-0.7) 08/28/23 05:30 Basophils (Manual) 0.0 % 08/28/23 05:30 Absolute Basophils 0.0 10^3/cmm (0.0-0.2) 08/28/23 05:30 Metamyelocytes 8.0 % 08/23/23 04:04 Nucleated RBCs 3.0 /100WBC (0-1) H 08/28/23 05:30 Nucleated RBCs # 0.0 /100WBC 08/27/23 03:53 Platelet Estimate Decreased (Normal) L 08/28/23 05:30 Floyd Cells 4+ H 08/25/23 04:30 Peripher Smr Path Cons Sent for review 08/27/23 03:53 Haptoglobin 130.0 mg/L (30-200) 08/27/23 03:53 PT 18.70 SECONDS (12.1-14.9) H 08/28/23 05:30 INR 1.51 (0.8-1.2) H 08/28/23 05:30 APTT 38.3 SECONDS (23.9-36.7) H 08/27/23 09:20 Fibrinogen 363 mg/dL (174-498) 08/27/23 09:20 Fibrin Degrad Products 10 mcg/mL (LESS THAN 5) H 08/22/23 19:46 D-Dimer 1.48 ug/mLFEU (0-0.59) H 08/28/23 05:30 Specimen Type Arterial 08/28/23 04:15 Sample Site Brachial, right 08/28/23 04:15 ABG pH 7.59 (7.35-7.45) H* 08/28/23 04:15 ABG pCO2 30.2 mmHg (35-45) L 08/28/23 04:15 ABG pO2 59.0 mmHg (80.0-100.0) L 08/28/23 04:15 ABG PO2/FiO2 Ratio 0 08/28/23 04:15 ABG HCO3 28.8 mmol/L (22-26) H 08/28/23 04:15 ABG O2 Saturation 97.6 08/26/23 11:18 ABG Base Excess 7.1 mmol/L (-2.0-2.0) H 08/28/23 04:15 Cody Test N/a 08/28/23 04:15 A-a O2 Gradient 15.8 mmHg (5-10) H 08/26/23 11:18 Hematocrit 36.0 % (37-47) L 08/28/23 04:15 Hgb O2 Saturation 95.4 % (95-100) 08/26/23 11:18 Carboxyhemoglobin 0.9 %THgb (0.4-20.1) 08/26/23 11:18 Methemoglobin 1.3 % (0.4-1.5) 08/26/23 11:18 Total Hemoglobin 12.6 g/dL (12-16) 08/26/23 11:18 Sodium 136.0 mmol/L (131-143) 08/26/23 11:18 Potassium 4.6 mmol/L (3.5-5.0) 08/26/23 11:18 Glucose 360.0 mg/dL (70-115) H 08/26/23 11:18 Ionized Calcium 1.0 mmol/L (1.1-1.4) L 08/26/23 11:18 O2 Delivery Device Vent 08/28/23 04:15 FiO2 35.0 % 08/28/23 04:15 Tidal Volume 0.35 08/26/23 11:18 PEEP 6.0 cmH20 08/28/23 04:15 Lehr Cutter ID [email or web address] 08/28/23 04:15 Sodium 144 mmol/L (136-145) 08/28/23 05:30 Potassium 3.2 mmol/L (3.5-5.1) L 08/28/23 05:30 Chloride 104 mmol/L (98-107) 08/28/23 05:30 Carbon Dioxide 25 mmol/L (22-29) 08/28/23 05:30 Anion Gap 18.2 (5-19) 08/28/23 05:30 BUN 47 mg/dL (8-23) H 08/28/23 05:30 Creatinine 0.8 mg/dL (0.5-0.9) 08/28/23 05:30 GFR Calculation Not Reportable 08/28/23 05:30 Glucose 107 mg/dL (65-115) 08/28/23 05:30 POC Glucose 86 mg/dL (70-110) 08/28/23 18:23 Estimat Average Glucose 212 08/22/23 17:00 Hemoglobin A1c 9.0 % (4.0-6.0) H 08/22/23 17:00 Calculated Osmolality 311 mOsm/kg (285-295) H 08/28/23 05:30 Lactic Acid 12.6 mmol/L (0.5-2.2) H* 08/22/23 12:52 Lactic Acid (Sepsis) 6.7 mmol/L (0.5-2.2) H* 08/22/23 16:39 Lactate 2.9 mmol/L (0.5-2.2) H 08/28/23 05:30 Calcium 8.2 mg/dL (8.5-10.5) L 08/28/23 05:30 Phosphorus 3.0 mg/dL (2.5-4.5) 08/28/23 05:30 Magnesium 1.7 mg/dL (1.7-2.3) 08/28/23 05:30 Total Bilirubin 2.7 mg/dL (0.15-1.2) H 08/28/23 05:30 AST 18 U/L (0-32) 08/28/23 05:30 ALT 18 U/L (0-33) 08/28/23 05:30 Alkaline Phosphatase 185 U/L (35-105) H 08/28/23 05:30 Lactate Dehydrogenase 246 U/L (135-214) H 08/27/23 03:53 Creatine Kinase 90 U/L (26-192) 08/28/23 05:30 Troponin T Baseline 479 ng/L (0-10) H* 08/22/23 12:52 Troponin T 120 Minute 437.6 ng/L (0-10) H 08/22/23 15:17 Delta Troponin T -41.4 ABS# (0-10) L 08/22/23 15:17 Troponin T Hi Sens 6Hr 363.6 ng/L (0-10) H 08/22/23 19:25 Troponin T Hi Sens 6Hr Delta -115.4 ng/L (0-12) L 08/22/23 19:25 C-Reactive Protein 45.6 mg/L (0.0-4.9) H 08/28/23 05:30 NT-Pro-B Natriuret Pep 4132 pg/mL (0-450) H 08/28/23 05:30 Total Protein 5.1 g/dL (6.6-8.7) L 08/28/23 05:30 Albumin 3.1 g/dL (3.5-5.2) L 08/28/23 05:30 Globulin 2.0 g/dL (1.3-4.6) 08/28/23 05:30 Triglycerides 171 mg/dL (0-150) H 08/22/23 17:00 Cholesterol 96 mg/dL (0-200) 08/22/23 17:00 LDL Cholesterol, Calc 48 mg/dL (50-129) L 08/22/23 17:00 HDL Cholesterol 14 mg/dL (60-100) L 08/22/23 17:00 LDL/HDL Ratio 3.43 RATIO (0.00-3.22) H 08/22/23 17:00 Cholesterol/HDL Ratio 6.86 mg/dL (0.0-4.40) H 08/22/23 17:00 Lipase 76 U/L (13-60) H 08/22/23 12:52 Procalcitonin 2.01 ng/mL (0-0.5) H 08/28/23 05:30 TSH 0.37 uIU/mL (0.27-4.20) 08/22/23 17:00 Random Cortisol 22.64 ug/dL (2.47-19.5) H 08/28/23 05:30 Urine Color Dark yellow (Yellow) 08/22/23 13:05 Urine Appearance Cloudy (CLEAR) A 08/22/23 13:05 Urine pH 5 (5-7) 08/22/23 13:05 Ur Specific [place] 1.020 (1.005-1.030) 08/22/23 13:05 Urine Protein Trace (Negative) 08/22/23 13:05 Urine Glucose (UA) Norm (Normal) 08/22/23 13:05 Urine Ketones Negative (Negative) 08/22/23 13:05 Urine Blood Neg (Negative) 08/22/23 13:05 Urine Nitrate Negative (Negative) 08/22/23 13:05 Urine Bilirubin 1+ (Negative) H 08/22/23 13:05 Urine Urobilinogen 1 mg/dL (Negative) H 08/22/23 13:05 Ur Leukocyte Esterase Negative (Negative) 08/22/23 13:05 Urine RBC 0-4 /hpf (0-2) H 08/22/23 13:05 Urine WBC 0-4 /hpf (0-5) H 08/22/23 13:05 Ur Squamous Epith Cells 0-4 /hpf (0-5) H 08/22/23 13:05 Amorphous Sediment Not Reportable 08/22/23 13:05 Urine Bacteria 1+ /hpf (NONE) H 08/22/23 13:05 Hyaline Casts 10-15 /lpf H 08/22/23 13:05 Nasal Influ A H1 2008 PCR Not detected (NOT DETECT) 08/23/23 07:35 Bronch Specimen Source Left lower lobe 08/24/23 09:50 Bronchial Fluid Color Slight pink 08/24/23 09:50 Bronchial Fluid Appearance Cloudy (CLEAR) 08/24/23 09:50 Bronch Cells Counted 200 08/24/23 09:50 Bronchial Neutrophils 45.00 % (0.9-2.3) H 08/24/23 09:50 Bronchial Lymphocytes 45.00 % (10.71-12.91) H 08/24/23 09:50 Bronchial Macrophages 10.00 % (83.6-86.8) L 08/24/23 09:50 Serum Ketones Negative (Negative) 08/26/23 21:49 Adenovirus (PCR) Not detected (NOT DETECT) 08/23/23 07:35 C. pneumoniae DNA (PCR) Not detected (NOT DETECT) 08/23/23 07:35 C. difficile Tox (PCR) Not detected (NOT DETECTED) 08/26/23 02:20 Coronavirus 229E (PCR) Not detected (NOT DETECT) 08/23/23 07:35 Human Metapneumovir PCR Not detected (NOT DETECT) 08/23/23 07:35 Influenza A (H1) PCR Not detected (NOT DETECT) 08/23/23 07:35 Influenza A (H3) PCR Not detected (NOT DETECT) 08/23/23 07:35 Influenza Type A Ag negative (Negative) 08/22/23 13:44 Influenza Type A (PCR) Not detected (NOT DETECT) 08/23/23 07:35 Influenza Type B Ag negative (Negative) 08/22/23 13:44 Influenza Type B (PCR) Not detected (NOT DETECT) 08/23/23 07:35 M. pneumoniae (PCR) Not detected (NOT DETECT) 08/23/23 07:35 Parainfluenza 1 (PCR) Not detected (NOT DETECT) 08/23/23 07:35 Parainfluenza 2 (PCR) Not detected (NOT DETECT) 08/23/23 07:35 Parainfluenza 3 (PCR) Not detected (NOT DETECT) 08/23/23 07:35 Parainfluenza 4 (PCR) Not detected (NOT DETECT) 08/23/23 07:35 RSV Type A (PCR) Not detected (NOT DETECT) 08/23/23 07:35 RSV Type B (PCR) Not detected (NOT DETECT) 08/23/23 07:35 Entero/Rhino (PCR) Not detected (NOT DETECT) 08/23/23 07:35 SARS-CoV-2 (PCR) Detected (NOT DETECT) A 08/23/23 07:35 Blood Type O Positive 08/27/23 09:20 Rho(D) Type Rh positive 08/27/23 09:20 Micro: Microbiology 08/22/23 12:53 Blood Culture - Final Blood NO GROWTH AFTER 5 DAYS 08/22/23 12:52 Blood Culture - Final Blood NO GROWTH AFTER 5 DAYS A&P Assessment and plan (1) Altered mental status: Qualifiers: Altered mental status type: unspecified Qualified Code(s): R41.82 - Altered mental status, unspecified (2) Acute hypoxic respiratory failure: (3) Septic shock: (4) Collapse of left lung: (5) Aspiration pneumonia: Qualifiers: Aspiration pneumonia type: due to vomit Laterality: left Lung location: lower lobe of lung Qualified Code(s): J69.0 - Pneumonitis due to inhalation of food and vomit (6) Diabetic ketoacidosis: Qualifiers: Diabetes mellitus type: type 2 Diabetes mellitus complication detail: w ith coma Qualified Code(s): E11.11 - Type 2 diabetes mellitus with ketoacidosis with coma (7) Acute renal failure: Qualifiers: Acute renal failure type: unspecified Qualified Code(s): N17.9 - Acute kidney failure, unspecified (8) NSTEMI (non-ST elevated myocardial infarction): (9) Lactic acidosis: (10) Uncontrolled diabetes mellitus: Qualifiers: Diabetes mellitus type: type 2 Glycemic state: with hyperglycemia Qualified Code(s): E11.65 - Type 2 diabetes mellitus with hyperglycemia (11) Staphylococcus aureus pneumonia: (12) Pneumonia due to COVID-19 virus: (13) Hypophosphatemia: (14) Hypoxic encephalopathy: Plan ASSESSMENT/PLAN:Overall: 82-year-old elderly lady with past medical history of diabetes noncompliant, A- fib with RVR-presented to ER being unresponsive likely secondary to DKA likely due to non compliant with treatments and aspiration pneumonia. Patient is also in hypovolemic/septic shock, hypernatremia. NEURO: # Altered mental status-secondary to DKA/sepsis/hypernatremia-likely hypoxic encephalopathy from septic shock -Head CT 08/22/2023-no acute changes -Held off sedation however there is no improvement in mentation-repeat CT head -Treat underlying sepsis/hypernatremia PULM: # Acute respiratory failure-likely secondary to aspiration pneumonia # Staph aureus pneumonia #COVID-19 PCR antigen positive -Intubated and sedated -Currently on CMV 350/PEEP 6/and FiO2 60%-ABG 7.5 06/21//28-respiratory alkalosis -CT chest showed left lower lobe collapse likely secondary to fluid and secretions; review of her CT chest report from 08/09/2023 at [facility]-showed mild tubular bronchiectasis but did not show any lung collapse. So malignancy unlikely -Chest [id number] left basilar atelectasis and or pneumonitis -Performed bronchoscope 08/24/2023-showed hyperemic left lower lobe airways with mucosal thickening and purulent mucoid secretions- BAL cultures positive for Staph aureus -Sputum cultures positive for Staph aureus-Patient covered with meropenem and vancomycin-she has penicillin allergy -COVID PCR positive-patient on airborne and contact isolation CVS: # Shock-sepsis versus hypovolemic-resolved -Off pressors -Current recovered with antibiotics for staph pneumonia -Monitor blood pressure, lactic acid -Target MAP > 65 -Significantly elevated BNP -Echocardiogram 08/23/2023-normal LV function # Troponinemia-likely secondary to demand ischemia -Initial troponin 478-2 hours later 437?troponin -41 -EKG no ST-T wave changes -We can discontinue heparin # A-fib with RVR -Patient is on amiodarone drip and digoxin - on Eliquis held due to brownish NG aspirate GI: # Diet: trickle feeding # GI prophylaxis: PPI RENAL: # Anion gap acidosis-improving -Likely due to lactic acidosis secondary to septic shock -Serum ketones are negative-this likely DKA # GISELLA-likely secondary to [id number] -Monitor renal functions closely -Patient is receiving IV fluids as well as pressor support to maintain MAP greater than 65 HEM: # DVT prophylaxis: Currently on Eliquis - held due to brownish NG aspirate ENDO: # Diabetes mellitus-patient not on medications # Serum ketones are negative-less likely DKA -Closely monitor electrolytes, glucose, anion gap ID: # Likely patient in septic shock secondary to Staph aureus pneumonia # COVID PCR positive -CT chest 08/22/2023 showed left lower lobe atelectasis and consolidation likely secondary to aspirated material (CT chest report from [facility] 08/08/2023-did not show any abnormality -Hence less likely malignancy) -Performed bronchoscope 08/24/2023-showed hyperemic left lower lobe airways with mucosal thickening and purulent mucoid secretions- BAL cultures - positive for coag positve staph -Sputum cultures positive for Staph aureus-Patient covered with meropenem and vancomycin-she has penicillin allergy -COVID PCR positive-patient on airborne and contact isolation Code Status: DNR/DNI Disposition: ICU Critically ill:Yes MD discussed with: ED physician, hospitalist taking care of the patient, RN, RT ICU CHECKLIST: Problem list updated Verbal orders reviewed and signed Analgesia: Fentanyl Glycemic Control: Will put her on scale coverage Nutrition: Trickle feeds Restraint Renewal (within 24 hrs): Yes Ulcer Prophylaxis: PPI Chemical Thromboprophylaxis: Prophylaxis:Elliquis held due brown aspirate Mechanical Thromboprophylaxis: SCDs Need for Central line: Right subclavian Need for Valenzuela catheter: Yes Family updated: Yes Attestations 2 Medical Necessity Statement*: Patient requires hospitalization for acute hypoxic respiratory failure, septic shock, pneumonia, Staph aureus pneumonia, COVID-19, concerns for anoxic brain injury, currently intubated, is on mechanical ventilation Time Spent in Patient Care: Greater than 35 minutes (>than 50% of time spent in counselling and/or direct pt care on unit) . Critical Care Time: The high probability of a clinically significant, sudden or life threatening deterioration of the patient's [Neurology, pulmonary, cardiac, renal, endocrine, infectious] system(s) required my full and direct attention, intervention and personal management. The critical care time is as shown. This time is in addition to time spent performing any reported procedures but includes the following: [x] Data and vital sign review and interpretation [x] Patient assessment, examination and intervention [x] Documentation [x] Medication orders and management Critical Care Time (min): 57 Coding Level of Care Code Acute Code for [facility] Fwd Diagnoses Altered mental status, unspecified altered mental status type R41.82 Altered mental status type: unspecified Acute hypoxic respiratory failure J96.01 Septic shock A41.9; R65.21 Collapse of left lung J98.11 Aspiration pneumonia of left lower lobe due to vomit J69.0 Aspiration pneumonia type: due to vomit Laterality: left Lung location: lower lobe of lung Diabetic ketoacidosis with coma associated with type 2 diabetes mellitus E11.11 Diabetes mellitus type: type 2 Diabetes mellitus complication detail: with coma Acute renal failure, unspecified acute renal failure type N17.9 Acute renal failure type: unspecified NSTEMI (non-ST elevated myocardial infarction) I21.4 Lactic acidosis E87.20 Uncontrolled type 2 diabetes mellitus with hyperglycemia E11.65 Diabetes mellitus type: type 2 Glycemic state: with hyperglycemia Staphylococcus aureus pneumonia J15.211 Pneumonia due to COVID-19 virus U07.1; J12.82 Hypophosphatemia E83.39 Hypoxic encephalopathy G93.1 Time Spent (min) 57
[2023-08-28 16:59] LABS: Glucose Point of Care 75 mg/dL (70-110)
--- NOTE | 2023-08-28 17:21 | PC.NURSE ---
Shift summary: Uneventful shift. Patient rested in bed throughout the day. mental status is unchanged. Will open eyes and look in the direction of verbal stimulation, but doesn't maintain eye contact or follow any direction. Winces when painful stimuli is applied but dies not withdraw from pain. 1 bowel movement. Total urine output has been 250mL (0.5ml/kg/hr).
--- NOTE | 2023-08-28 17:40 | PM.PN ---
Subjective Subjective: Patient was seen this morning multiple times throughout the morning, she remains off pressors, remains afebrile, normotensive, heart rates are low 100s, in terms of her mentation, she does wince, she does withdraw from the light, she does track at times, she does not follow commands, does not move upper or lower extremities, does not move bilateral legs, she does not move her head, she has a cough reflex, she has a gag reflex, she does not withdraw from pain, pupils are equal round reactive to light, ? I had a detailed discussion with patient's son, about goals of care, my concern would be for significant irreversible neurologic injury, such as anoxic brain injury, goals of care that I discussed with continue medical interventions, and giving her time to see if she would neurologic recover, ? Other options I presented was tracheostomy, PEG tube placement, placement long-term care facility to see if she would recover over time ?the other option I presented was to extubate her, either pain ease or suffering allow her to pass bed comfortably, on comfort care/hospice, ? After discussing the risk and benefits of all options he voiced understanding, all questions answered for now he wants us to continue everything, he wants to think, but he tells me likely tomorrow he is going to come to the hospital, and make her comfortable, but he wants to be there, he does not want her to alone, [place] [address] [place], he tells me he has a burial gown, and he wants to be there Vitals/I&O/Wt Last Vital Signs Temp 96.9 F L 08/28/23 17:00 Pulse 117 H 08/28/23 17:00 Resp 24 H 08/28/23 17:00 BP 143/82 08/28/23 17:00 Pulse Ox 92 08/28/23 17:00 O2 Del Method Nasal Cannula 08/28/23 17:00 O2 Flow Rate 2 08/28/23 17:00 FiO2 35 08/28/23 15:34 08/28/23 08/28/23 08/28/23 06:59 14:59 22:59 Intake Total 150 / 150 Output Total 850 / 3150 250 / 250 Balance -850 / -2499.958 -100 / -100 Weight last 48 hrs Weight 49.895 kg Weight 48.172 kg Physical Exam Const: COMMON NORMALS: no acute distress Resp: COMMON NORMALS: normal respiratory effort, No retractions, No use of accessory muscles and clear to auscultation bilaterally AUSCULTATION: clear to auscultation bilaterally Cardio: COMMON NORMALS: regular rate, regular rhythm, S1 normal heart sound present and S2 normal heart sound present RATE: regular rate RHYTHM: regular rhythm HEART SOUNDS: S1 normal heart sound present and S2 normal heart sound present GI: COMMON NORMALS: Normal to inspection, nondistended, normoactive bowel sounds present and non-tender Data 08/28/23 05:30 08/28/23 05:30 Micro: Microbiology 08/22/23 12:53 Blood Culture - Final Blood NO GROWTH AFTER 5 DAYS 08/22/23 12:52 Blood Culture - Final Blood NO GROWTH AFTER 5 DAYS A&P Assessment and plan (1) Acute hypoxic respiratory failure: (2) Unresponsiveness: (3) Septic shock: (4) Lactic acidosis: (5) Metabolic acidosis: (6) NSTEMI (non-ST elevated myocardial infarction): (7) Acute renal failure: Qualifiers: Acute renal failure type: unspecified Qualified Code(s): N17.9 - Acute kidney failure, unspecified (8) Hypernatremia: (9) Hypokalemia: (10) Atrial fibrillation with RVR: (11) Increased anion gap metabolic acidosis: (12) Aspiration pneumonia: Qualifiers: Aspiration pneumonia type: due to vomit Laterality: left Lung location: lower lobe of lung Qualified Code(s): J69.0 - Pneumonitis due to inhalation of food and vomit (13) Collapse of left lung: (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, Pupils equal round reactive to light, does wince when light is shined in her eyes, but does not track, does not follow commands, does not withdraw from pain, does blink, has a cough reflex has a gag reflex, ? Concerns for encephalopathy related to a reversible causes, possible anoxic injury, ? Reversible causes include sepsis, lactic acidosis, uremia ? Continue to monitor mentation closely Acute hypoxic respiratory failure ? Secondary to aspiration, ? Secondary to left lower lobe lung collapse, pneumonia, sputum culture showing Staph aureus ? Staph aureus pneumonia ? COVID-19 pneumonia ? Plan, ?Status post bronchoscopy ? Continue ICU level monitoring, ? Continue intubation, ? Minimize tidal volume, minimize FiO2, ? Fentanyl, Versed, propofol for sedation, ? Monitor respiratory status closely, ? Continue broad-spectrum tract therapy vancomycin, meropenem, ? On remdesivir, Decadron for COVID-19 pneumonia completed ? Isolation precautions ? Patient's son tells me that if her condition worsens, she deteriorates on the ventilator, he wants us to proceed with just making her comfortable, and easing her pes and easing her suffering allowing her to pass out comfortably, ? Pulmonary critical care has been consulted, plans on possible bronchoscopy when patient is more stabl COVID-19 pneumonia, ? As above Staph aureus pneumonia, on vancomycin Septic shock, remains on Levophed, resolved -COVID-19 pneumonia ? Secondary to pneumonia ? Sputum cultures ? Blood cultures, ? Respiratory viral panel, ? Broad-spectrum antibiotic therapy vancomycin, meropenem ? Monitor lactic acid ? Monitor clinical status closely ? Continue Levophed, maintain MAP more than 65, Left lower lobe lung collapse, ? Pulmonary critical care consulted, ? Stat post bronchoscopy Hypokalemia, resolving Hypernatremia, resolved Diabetic ketoacidosis, resolved -Lantus, 5 units subcu 12 hours ? Moderate dose sliding scale A-fib with RVR ? p.o. amiodarone ? Status post amiodarone bolus, status post digoxin -Continue Eliquis NSTEMI, ? Type I versus type II, ? Cannot rule out underlying cardiology given type 2 diabetes mellitus, poorly controlled, ? Cardiac echo, ? Continue eliquis History of nosebleed, Increased anion gap metabolic acidosis, resolved ? Multifactorial from sepsis, septic shock, diabetic ketoacidosis, ? Recheck BMP, ketones, 2 doses of bicarb Anorexia, BMI 15.9, Poorly controlled type 2 diabetes mellitus, as above Acute renal failure, likely sec to dehydration, nausea, vomiting, diarrhea, diabetic ketoacidosis, sepsis, septic shock ? Monitor urine output, ? Monitor creatinine, monitor potassium, Possible Listeria food poisoning, ? I looked up patient's sons reported ice cream, it is a [employer] brand, home style home style ice cream, ? Its not part of the recall, I also visited the [facility] website, the [place] website and it was not part of the recalls, ? But I will give patient benefit of the doubt, as apparently according to the son he was called and told that she had a Listeria infection I am not sure if this was [facility] ? I will get records from [facility] I did call them however their medical record department was closed, ? For now I will place her on meropenem for coverage Goals of care discussion, patient's son tells me that he does not want his mom to get CPR, he does not want to have overly aggressive interventions, if her condition were to deteriorate, he just wants her to be comfortable Elevated INR, resolved Attestations Medical Necessity Statement*: Patient requires hospitalization for acute hypoxic respiratory failure, septic shock, pneumonia, Staph aureus pneumonia, COVID-19, concerns for anoxic brain injury, currently intubated, is on mechanical ventilation Coding Level of Care Code Critical Care >/= 30 minutes Critical care time (in minutes): 45 The high probability of a clinically significant, sudden or life threatening deterioration, as referenced in this documentation, required my full and direct attention, intervention and personal management. The critical care time shown is in addition to time spent performing any reported separately billable procedures and includes the following: [x] Data and vital sign review and interpretation [x] Patient assessment, examination and intervention [x] Medication orders and management [x] Patient/Family updates as able [x] Care Coordination and Documentation. Diagnoses Acute hypoxic respiratory failure J96.01 Unresponsiveness R41.89 Septic shock A41.9; R65.21 Lactic acidosis E87.20 Metabolic acidosis E87.20 NSTEMI (non-ST elevated myocardial infarction) I21.4 Acute renal failure, unspecified acute renal failure type N17.9 Acute renal failure type: unspecified Hypernatremia E87.0 Hypokalemia E87.6 Atrial fibrillation with RVR I48.91 Increased anion gap metabolic acidosis E87.29 Aspiration pneumonia of left lower lobe due to vomit J69.0 Aspiration pneumonia type: due to vomit Laterality: left Lung location: lower lobe of lung Collapse of left lung J98.11 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
[2023-08-28] MEDS: pantoprazole 40 mg SDV IVP (17:48)
[2023-08-28 18:26] LABS: Glucose Point of Care 86 mg/dL (70-110)
[2023-08-28 20:01] LABS: Vancomycin Trough 8.4 ug/mL (10-15)
[2023-08-28] MEDS: vancomycin 750 MG in sodium chloride 0.9% 250 ML 250 MG IV (20:47)
[2023-08-28 20:50] LABS: ABG PCO2 29.7 mmHg (35-45); Arterial Blood Gas Hematocrit 45.2 % (37-47); Base Excess ABG 7.3 mmol/L (-2.0-2.0); Blood Gas Allen Test Pos; Blood Gas Sample Type Arterial; Carboxyhemoglobin 1.5 %THgb (0.4-20.1); HCO3 ABG 28.5 mmol/L (22-26); HGB O2 Sat 91.8 % (95-100); Ionized Calcium Level - ABG 1.1 mmol/L (1.1-1.4); Oxygen Saturation ABG 94.2; PO2 ABG 62.2 mmHg (80.0-100.0); Total Hemoglobin 14.8 g/dL (12-16)
[2023-08-28 20:52] LABS: Alveolar-Arterial Oxygen Gradi 19.2 mmHg (5-10); Blood Gas Operator Identificat JB; Blood Gas Sample Site Radial, right; Blood Gas Tidal Volume 0.35; Oxygen Device VENT; PO2 FiO2 Ratio Arterial Blood 0
[2023-08-28 20:56] LABS: ABG PH Result 7.59 (7.35-7.45)
[2023-08-28] MEDS: dexmedeTOMIDine 0.9 % NaCL 400 MCG/100 ML PREMIX IV (21:20)
--- NOTE | 2023-08-28 23:51 | PC.NURSE ---
43ml of Fentanyl wasted with [facility]UST.
[2023-08-29] VITALS (17 sets, daily range): BP systolic 80–167; BP diastolic 53–108; PULSE 76–125; RESP 14–26; TEMP 36.1; O2SAT 90–97; BMI 19.2
[2023-08-29] MEDS: fentaNYL 1,000 MCG/100 ML BAG 25 MCG IV (00:02)
[2023-08-29 04:57] LABS: ABG PCO2 31.9 mmHg (35-45); ABG PH Result 7.56 (7.35-7.45); Arterial Blood Gas Hematocrit 34.5 % (37-47); Base Excess ABG 6.1 mmol/L (-2.0-2.0); Blood Gas Allen Test Pos; Blood Gas Operator Identificat JB; Blood Gas Sample Site Brachial, right; Blood Gas Sample Type Arterial; Blood Gas Tidal Volume 0.35; HCO3 ABG 28.4 mmol/L (22-26); Oxygen Device VENT; PO2 ABG 81.9 mmHg (80.0-100.0); PO2 FiO2 Ratio Arterial Blood 0
--- NOTE | 2023-08-29 05:12 | PC.NURSE ---
White lumen on (R) femoral line does not have blood return. Flushes without issue.
[2023-08-29 05:41] LABS: Basophils % 0.2 %; Eosinophils % 0.2 %; Hematocrit 28.4 % (36-47); Lymphocytes # 0.9 10^3/uL (0.8-4.8); Lymphocytes % 8.3 %; Mean Corpuscular HGB Conc 35.9 g/dL (30-55); Mean Corpuscular Hemoglobin 32.1 pg (27-33); Mean Corpuscular Volume 89.3 fl (85-98); Monocytes # 0.4 10^3/uL (0.2-0.9); Monocytes % 3.5 %; Neutrophils # 9.22 10^3/uL (1.8-7.7); Neutrophils % 86.8 %; Nucleated Red Blood Cells # 0.2 /100WBC; Nucleated Red Blood Cells % 1.4 %; Platelet Count 38 10^3/cmm (157-399); Red Blood Count 3.18 10^6/uL (3.85-5.65); Red Cell Distribution Width 15.2 % (12.1-15.1); White Blood Count 10.62 10^3/uL (3.29-11.43)
[2023-08-29 05:51] LABS: INR 1.44 (0.8-1.2)
[2023-08-29 05:55] LABS: D Dimer 1.28 ug/mLFEU (0-0.59)
[2023-08-29 05:57] LABS: Alanine Aminotransferase 13 U/L (0-33); Albumin Level 2.4 g/dL (3.5-5.2); Alkaline Phosphatase 166 U/L (35-105); Anion Gap 16.1 (5-19); Aspartate Amino Transferase 13 U/L (0-32); Blood Urea Nitrogen 54 mg/dL (8-23); C Reactive Protein 61.2 mg/L (0.0-4.9); Calcium 8.1 mg/dL (8.5-10.5); Carbon Dioxide 25 mmol/L (22-29); Chloride 104 mmol/L (98-107); Globulin 2.2 g/dL (1.3-4.6); Glucose 171 mg/dL (65-115); Magnesium 1.8 mg/dL (1.7-2.3); Osmolality Calculated 313 mOsm/kg (285-295); Potassium 3.1 mmol/L (3.5-5.1); Sodium 142 mmol/L (136-145); Total Bilirubin 2.8 mg/dL (0.15-1.2); Total Protein 4.6 g/dL (6.6-8.7)
[2023-08-29 05:58] LABS: Lactate (Lactic Acid level) 2.9 mmol/L (0.5-2.2)
[2023-08-29 06:04] LABS: Slide Review Slide Review Perform
[2023-08-29 06:06] LABS: NT Pro B Type Natriuretic Pept 2238 pg/mL (0-450); Procalcitonin 1.27 ng/mL (0-0.5)
[2023-08-29 06:17] LABS: Creatine Phosphokinase 72 U/L (26-192)
--- NOTE | 2023-08-29 07:58 | PC.NURSE ---
son called for updated related will be here 1000 to see doctor
[2023-08-29] MEDS: meropenem 500 MG in sodium chloride 0.9% (plus) 50 ML 100 MG IV (08:47)
[2023-08-29] MEDS: phosphorus 250 mg Tablet PO (08:48)
[2023-08-29] MEDS: insulin glargine 100 units/1 mL 5 UNIT SUBCUT (08:48)
[2023-08-29] MEDS: amiodarone 200 mg Tablet 400 MG PO (08:48)
[2023-08-29 08:56] LABS: Glucose Point of Care 174 mg/dL (70-110)
[2023-08-29] MEDS: insulin lispro 100 unit/1 mL SUBCUT (09:47)
--- NOTE | 2023-08-29 10:01 | PC.SOCIAL ---
IMM Updated Updated pt's son on IMM. No questions voiced. Provided pt a copy. Initialed, dated, & timed copy in chart.
[2023-08-29] MEDS: morphine 4 mg/mL SDV 1 mL IVP ×2 (10:15→10:27)
[2023-08-29] MEDS: chlorhexidine gluconate 4% Btl 118 mL 1 APPLIC TOPICAL (10:27)
--- NOTE | 2023-08-29 10:31 | PC.NURSE ---
extubated and placed on comfort care at this time son at bedside with plant maintenance manager in room
[2023-08-29] MEDS: morphine 4 mg/mL SDV 1 mL 2 MG IVP (12:56)
--- NOTE | 2023-08-29 13:14 | PM.PN ---
Subjective Subjective: - Patient was examined multiple times throughout the morning, ? Early in the morning she was seen, she is on 4 of Levophed she is on fentanyl and Precedex for sedation, ? She was hypotensive throughout the night, requiring Levophed, she remains intubated, on 35% FiO2, she does not open her eyes, does not track, has a cough reflex has a gag reflex does not withdraw from pain She was taken off sedation,?off sedation, examined her, she does have pupillary reflex bilateral, does have a cough reflex has a gag reflex does not track, times she seems to follow me around the room, but not consistently, she does not move her upper or lower extremities, As she was reexamined, a few hours later, she continues to have a cough reflex, gag reflex and pupillary reflex, does seem to track a little bit more, nursing staff reports that she did move her right hand, she was not able to follow any commands for me, did not move upper or lower extremities, to me she did not have any purposeful movements, does not track ? ? I had a family meeting with patient's son at bedside Spoke to son about her respiratory failure, her ventilator dependence, her pneumonia, on antibiotics her pressor requirements are new this morning, indicating development of sepsis, her multiorgan failure which is getting better, her lactic acidosis, discussed her mentation, she concerns for significant irreversible neurologic injury, she is not following commands, ? I discussed all options and goals of care, ? Options I included was continuing all medical interventions, likely placing a tracheostomy tube or PEG tube, moving her to a long-term care facility to monitor her neurologic recovery to see if at all she would recover versus easing her pain easing her suffering, and allowing her to pass away on comfort care hospice, versus more machinery in the hospital to give her more time, to see if she were to recover ? Patient's son tells me that he wants the tube removed, he wants her to be comfortable, he does not want her to suffer anymore ?after discussing the risk and benefits of all options, he voiced understanding, all questions answered, he wants to proceed with comfort care, he tells me that he already has her burial gown, he is making arrangements for her body to be transported to [place], Vitals/I&O/Wt Last Vital Signs Temp 96.9 F L 08/29/23 02:00 Pulse 125 H 08/29/23 13:00 Resp 18 08/29/23 11:00 BP 125/99 08/29/23 13:00 Pulse Ox 91 08/29/23 12:00 O2 Del Method Nasal Cannula, Mechanical Ventilation 08/28/23 17:00 O2 Flow Rate 15 08/22/23 12:15 FiO2 35 08/29/23 08:41 08/28/23 08/29/23 08/29/23 22:59 06:59 14:59 Intake Total 151.502 / 151.502 87.702 / 239.204 788.333 / 788.333 Output Total 250 / 250 225 / 475 Balance -98.498 / -98.498 -137.298 / -235.796 788.333 / 788.333 Weight last 48 hrs Weight 47.627 kg Weight 49.895 kg Physical Exam Const: COMMON NORMALS: no acute distress Resp: COMMON NORMALS: normal respiratory effort, No retractions, No use of accessory muscles and clear to auscultation bilaterally AUSCULTATION: clear to auscultation bilaterally Cardio: COMMON NORMALS: regular rate, regular rhythm, S1 normal heart sound present and S2 normal heart sound present RATE: regular rate RHYTHM: regular rhythm HEART SOUNDS: S1 normal heart sound present and S2 normal heart sound present GI: COMMON NORMALS: Normal to inspection, nondistended, normoactive bowel sounds present Data 08/29/23 05:20 08/29/23 05:20 A&P Assessment and plan (1) Need for comfort care: (2) Hypoxic encephalopathy: (3) Acute hypoxic respiratory failure: (4) Unresponsiveness: (5) Septic shock: (6) Lactic acidosis: (7) Metabolic acidosis: (8) NSTEMI (non-ST elevated myocardial infarction): (9) Acute renal failure: Qualifiers: Acute renal failure type: unspecified Qualified Code(s): N17.9 - Acute kidney failure, unspecified (10) Hypernatremia: (11) Hypokalemia: (12) Atrial fibrillation with RVR: (13) Increased anion gap metabolic acidosis: (14) Aspiration pneumonia: Qualifiers: Aspiration pneumonia type: due to vomit Laterality: left Lung location: lower lobe of lung Qualified Code(s): J69.0 - Pneumonitis due to inhalation of food and vomit (15) Collapse of left lung: (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: (17) Diabetic ketoacidosis: Qualifiers: Diabetes mellitus type: type 2 Diabetes mellitus complication detail: with coma Qualified Code(s): E11.11 - Type 2 diabetes mellitus with ketoacidosis with coma (18) Anorexia: (19) Protein calorie malnutrition: (20) Altered mental status: Qualifiers: Altered mental status type: unspecified Qualified Code(s): R41.82 - Altered mental status, unspecified (21) Pneumonia due to COVID-19 virus: (22) Elevated INR: (23) GI bleed: (24) Hypophosphatemia: (25) Staphylococcus aureus pneumonia: Plan Proceeding with comfort care, start comfort care order set, terminally extubate, son wants to present at bedside discussed risk and benefits about being at bedside, possible exposure to COVID-19, rubidium mortality associated, he voiced understanding, all questions answered, still wants to remain at bedside, advised to wear facemask, N95 mask, will start the comfort care order process, agreeable to proceed Acute encephalopathy ?, Pupils equal round reactive to light, does wince when light is shined in her eyes, but does not track, does not follow commands, does not withdraw from pain, does blink, has a cough reflex has a gag reflex, ? Concerns for encephalopathy related to a reversible causes, possible anoxic injury, ? Reversible causes include sepsis, lactic acidosis, uremia ? Continue to monitor mentation closely Acute hypoxic respiratory failure ? Secondary to aspiration, ? Secondary to left lower lobe lung collapse, pneumonia, sputum culture showing Staph aureus ? Staph aureus pneumonia ? COVID-19 pneumonia ? Plan, ?Status post bronchoscopy ? Continue ICU level monitoring, ? Continue intubation, ? Minimize tidal volume, minimize FiO2, ? Fentanyl, Versed, propofol for sedation, ? Monitor respiratory status closely, ? Continue broad-spectrum tract therapy vancomycin, meropenem, ? On remdesivir, Decadron for COVID-19 pneumonia completed ? Isolation precautions ? Patient's son tells me that if her condition worsens, she deteriorates on the ventilator, he wants us to proceed with just making her comfortable, and easing her pes and easing her suffering allowing her to pass out comfortably, ? Pulmonary critical care has been consulted, plans on possible bronchoscopy when patient is more stabl COVID-19 pneumonia, ? As above Staph aureus pneumonia, on vancomycin Septic shock, remains on Levophed, resolved -COVID-19 pneumonia ? Secondary to pneumonia ? Sputum cultures ? Blood cultures, ? Respiratory viral panel, ? Broad-spectrum antibiotic therapy vancomycin, meropenem ? Monitor lactic acid ? Monitor clinical status closely ? Continue Levophed, maintain MAP more than 65, Left lower lobe lung collapse, ? Pulmonary critical care consulted, ? Stat post bronchoscopy Hypokalemia, resolving Hypernatremia, resolved Diabetic ketoacidosis, resolved -Lantus, 5 units subcu 12 hours ? Moderate dose sliding scale A-fib with RVR ? p.o. amiodarone ? Status post amiodarone bolus, status post digoxin -Continue Eliquis NSTEMI, ? Type I versus type II, ? Cannot rule out underlying cardiology given type 2 diabetes mellitus, poorly controlled, ? Cardiac echo, ? Continue eliquis History of nosebleed, Increased anion gap metabolic acidosis, resolved ? Multifactorial from sepsis, septic shock, diabetic ketoacidosis, ? Recheck BMP, ketones, 2 doses of bicarb Anorexia, BMI 15.9, Poorly controlled type 2 diabetes mellitus, as above Acute renal failure, likely sec to dehydration, nausea, vomiting, diarrhea, diabetic ketoacidosis, sepsis, septic shock ? Monitor urine output, ? Monitor creatinine, monitor potassium, Possible Listeria food poisoning, ? I looked up patient's sons reported ice cream, it is a [employer] brand, home style home style ice cream, ? Its not part of the recall, I also visited the [facility] website, the [place] website and it was not part of the recalls, ? But I will give patient benefit of the doubt, as apparently according to the son he was called and told that she had a Listeria infection I am not sure if this was [facility] ? I will get records from [facility] I did call them however their medical record department was closed, ? For now I will place her on meropenem for coverage Goals of care discussion, patient's son tells me that he does not want his mom to get CPR, he does not want to have overly aggressive interventions, if her condition were to deteriorate, he just wants her to be comfortable Elevated INR, resolved Attestations Medical Necessity Statement*: Patient requires hospitalization for acute respiratory failure, Staph aureus pneumonia, COVID-19, multiorgan failure, atrial fibrillation, concerns for anoxic brain injury, irreversible neurologic injury, Coding Level of Care Code Critical Care >/= 30 minutes Critical care time (in minutes): 45 The high probability of a clinically significant, sudden or life threatening deterioration, as referenced in this documentation, required my full and direct attention, intervention and personal management. The critical care time shown is in addition to time spent performing any reported separately billable procedures and includes the following: [x] Data and vital sign review and interpretation [x] Patient assessment, examination and intervention [x] Medication orders and management [x] Patient/Family updates as able [x] Care Coordination and Documentation. Diagnoses Need for comfort care Hypoxic encephalopathy G93.1 Acute hypoxic respiratory failure J96.01 Unresponsiveness R41.89 Septic shock A41.9; R65.21 Lactic acidosis E87.20 Metabolic acidosis E87.20 NSTEMI (non-ST elevated myocardial infarction) I21.4 Acute renal failure, unspecified acute renal failure type N17.9 Acute renal failure type: unspecified Hypernatremia E87.0 Hypokalemia E87.6 Atrial fibrillation with RVR I48.91 Increased anion gap metabolic acidosis E87.29 Aspiration pneumonia of left lower lobe due to vomit J69.0 Aspiration pneumonia type: due to vomit Laterality: left Lung location: lower lobe of lung Collapse of left lung J98.11 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
--- NOTE | 2023-08-29 14:36 | PC.NURSE ---
arrangement made by pt years prior and has [place] and [place] paid for in [employer] .. [facility] to [facility] [address] [facility] [address] [facility] [address] Phone number [phone] to contact Ernesto power here at [facility] for body transfer and notify son
--- NOTE | 2023-08-29 18:14 | PC.NURSE ---
pt notified son and home [facility] ,, [facility] declined per traci ref [phone] and [facility] declined post mortem care done and jorge power notified
[2023-08-30 06:30] LABS: Heparin Induced Platelet AB NEGATIVE (NEGATIVE); Patient O.D 0.133
--- NOTE | 2023-08-30 11:15 | PM.DDS ---
Discharge Providers DDS Date of Admission: 08/22/23 15:38 Date Summary Completed: 08/30/23 Attending Provider at Admission: Kenton Cool MD Time of : 17:22 Attending Provider at Discharge: Kenton Cool MD Primary Care Provider: SHARMAINE Esparza DS Diagnoses Hospital Diagnoses (1) Need for comfort care: (2) Hypoxic encephalopathy: (3) Acute hypoxic respiratory failure: (4) Unresponsiveness: (5) Septic shock: (6) Lactic acidosis: (7) Metabolic acidosis: (8) NSTEMI (non-ST elevated myocardial infarction): (9) Acute renal failure: Qualifiers: Acute renal failure type: unspecified Qualified Code(s): N17.9 - Acute kidney failure, unspecified (10) Hypernatremia: (11) Hypokalemia: (12) Atrial fibrillation with RVR: (13) Increased anion gap metabolic acidosis: (14) Aspiration pneumonia: Qualifiers: Aspiration pneumonia type: due to vomit Laterality: left Lung location: lower lobe of lung Qualified Code(s): J69.0 - Pneumonitis due to inhalation of food and vomit (15) Collapse of left lung: (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: (17) Diabetic ketoacidosis: Qualifiers: Diabetes mellitus complication detail: with coma Diabetes mellitus type: type 2 Qualified Code(s): E11.11 - Type 2 diabetes mellitus with ketoacidosis with coma (18) Anorexia: (19) Protein calorie malnutrition: (20) Altered mental status: Qualifiers: Altered mental status type: unspecified Qualified Code(s): R41.82 - Altered mental status, unspecified (21) Pneumonia due to COVID-19 virus: (22) Elevated INR: (23) GI bleed: (24) Hypophosphatemia: (25) Staphylococcus aureus pneumonia: Reason for Visit Reason for Visit unresponsive Summary Date and Time of Date of : 08/29/23 Time of : 17:22 Summary Summary: Sonia Baca is a 82 year old female with a past medical history of type 2 diabetes mellitus, last A1c 11.3, not on any medications, history of atrial fibrillation on Eliquis, who presents to [facility] due to nonresponsiveness. Currently patient is intubated, sedated, on pressors, on Cardizem for A-fib with RVR, blood pressures are 110s over 80s, she is febrile temperature 100.3, heart rates are in the 150s on maximal Cardizem drip, she has fentanyl and Versed for sedation, she is intubated, she is on 60% FiO2, she is mottled up to the level of bilateral knees, BMI is 15.9, son is at bedside most of the history was obtained by son. Patient's son tells me that about 3 weeks ago, she started to have severe nausea vomiting and diarrhea. Patient according to son loves ice cream, and she was consuming ice cream from [employer] staff vanilla flavored ice cream according to patient's son, after eating the ice cream she typically consumes a lot of it, he tells me that she consumed 8 out of 9 tabs of ice cream, that they had purchased, she started having severe nausea, vomiting, diarrhea, feeling unwell according to patient's son they had received some call that the ice cream was recalled due to Listeria, so they became suspicious that the cause of her feeling unwell nausea, vomiting, diarrhea was from Listeria. 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 However she continued to have profuse nausea vomiting diarrhea, poor oral intake so she again she went to the emergency room about a week ago, she was diagnosed with what sounds like A-fib with RVR placed on Eliquis and metoprolol and sent home. I am still waiting on the records from [facility]. The patient's son tells me that her diarrhea did improve, her nausea did improve, she was able to consume a little bit more food, consume liquids. She at is normally alert and awake, can follow commands, she normally can help take care of herself. He tells me that yesterday, she did have a couple bites to eat, but continued to have fatigue, malaise. No known fevers or chills. No known cough. Throughout her diarrhea, she did have complaints of diffuse abdominal pain. She did have a near syncopal episode about a week ago but never actually passed out. Had complaints of lightheadedness and dizziness. No new rashes. Patient's son was out doing business, when he came back home, he found that his mother was slumped over in her chair, unresponsive, Upon arrival, patient was in acute respiratory distress, nonresponsive, hypotensive, tachycardic. Patient was intubated in the emergency room, central line placed, placed on Levophed, Cardizem, heparin, sedated, had a second central line placed no known history of CAD. She has had a TIA. No known kidney disease. No known liver disease. Patient's sons at bedside, I had a discussion with patient's son, currently she is on Cardizem for her atrial fibrillation heart rate still in the 150s we will switch her over to amiodarone. She is on the heparin drip because of her A-fib. She is currently intubated on 60% FiO2. She is on pressors, for Levophed. I am unsure of her mentation but she as she is on Versed and fentanyl. She is febrile. Review of her blood work shows a lactic acidosis. Acute renal failure. NSTEMI. Hypokalemia. Hyponatremia. Leukocytosis. CT of the chest shows complete collapse of left lower lobe with obstruction of the left lower bronchi with fluid and secretions. Does show decompressed transverse colon with suspected colitis with surrounding induration. I spoke to patient's son, currently patient is in multiorgan failure, acute renal failure, has NSTEMI, acute respiratory failure, she is in septic shock, severe lactic acidosis, severe acidemia, with complete collapse of the left lower lobe. Etiology what I suspect has happened is is that she aspirated with her severe nausea vomiting causing severe pneumonia, causing severe septic shock. She has NSTEMI so she likely has significant cardiac stress from her septic shock she could be suffering an acute cardiac event however her EKG has no acute ST-T wave changes and she is a high risk of morbidity and mortality for cardiac intervention currently. She does have hyponatremia and hypokalemia supporting the theory of her severe nausea vomiting for the last 3 weeks. She does also have evidence of acute respiratory failure given her pneumonia. She is febrile. She also has A-fib with RVR, given her sepsis and septic shock. She is on pressors given her sepsis and septic shock. The question is that if she is diabetic ketoacidosis she has a history of severe diabetes she is not on any diabetic medications the question is what is the etiology that drove all this. Does in fact she have Listeria and or did she have diabetic ketoacidosis with all the consumption of her ice cream. I looked online, and I cannot find that this specific brand of ice cream was associate with Listeria. But patient's family was told that over the phone that it was this brand of ice cream that was affected. Nonetheless she has a penicillin allergy so I can give her ampicillin, will start on meropenem. I will put her on isolation precautions just to be on the safe side. Will obtain records from [facility]. However my thought is she likely had diabetic ketoacidosis that was the likely etiology behind her 3 weeks of nausea and vomiting, I am going to look at the record from [facility] once I get them to confirm. Nonetheless we will start her on broad-spectrum antibiotic therapy, replace electrolytes she might require an insulin drip based upon her further blood work. For now we have to replace her electrolytes. Currently she is critically ill, status is stable, prognosis is guarded. I discussed goals of care with patient's son, patient's son tells me that if her heart stops just let her pass away. He does not want to have overly aggressive interventions. He tells me that if she were to decompensate on the ventilator for us to let her pass away. He wants her to just be comfortable for us to ease her pain and ease her suffering if she were to deteriorate. He wants us to continue medical interventions for now however if she were to deteriorate such the point it which the likelihood of a meaningful recovery is very unlikely for us to stop all interventions. He does not want overly aggressive interventions. I did discuss with him if she would want to remain on mechanical ventilation currently, he is okay with the interventions that were doing for her now. But he would not want her to be on life-sustaining measures for a prolonged period of time if it came to that point he would just he told me that he would want everything to be stopped. Will monitor in the ICU. Patient was admitted to [facility] for acute respiratory failure, hypoxic secondary to aspiration pneumonia, left lower lung collapse, Staph aureus pneumonia, COVID-19 pneumonia, with septic shock, multiorgan failure, A-fib with RVR, acute renal failure, NSTEMI, with underlying anorexia, poorly controlled type 2 diabetes mellitus, with concerns for DKA on admission. Patient was was monitored in the ICU, pulmonary critical care, cardiology was consulted, monitor on insulin drip, amiodarone drip, anticoagulant therapy, intubated sedated on mechanical ventilation, requiring pressor support, broad-spectrum antibiotic therapy, requiring bronchoscopy. Overall patient is A-fib improved, to p.o. amiodarone, heart rates were improved still in A-fib but well-controlled. Her intubation mechanical ventilation improved, her O2 requirements decreased to 35 to 40%. Her septic shock continue improved, secondary COVID-19, and Staph aureus pneumonia, due to the time of her , she still remained on 4 of Levophed. For left lung collapse she did get a bronchoscopy procedure. DKA, initially managed with insulin drip, transition off insulin drip. Staph aureus pneumonia received prophy antibiotic therapy. COVID-19 pneumonia, received steroids, remdesivir. Renal failure improved. Due to concerns for acute encephalopathy, she was kept off sedation for at least 96hours, concerns for anoxic brain injury, evaluated for reversible causes, reversible causes were intervened on, however her mentation did not improve, after discussing the risk and benefits all options, patient's family voiced understanding, all questions answered, shared decision making. Patient was made comfort care, terminally extubated, time of 08/29/2023 at 1722 Additional Data Confirmation of as documented by pronouncing clinician: no pulse, no respirations, no heart sounds and pupils fixed and dilated Family: at bedside and contacted Additional persons at bedside: nursing staff Attending/PCP notified?: I am attending Was code activated?: No Autopsy requested?: No Advance directives?: Yes Hospice patient?: No Discharge Plan Discharge Patient Disposition: At Medical Facility Condition: Stable Prescriptions: No Action Prilosec OTC 20 mg tablet,delayed release (DR/EC) 20 mg PO DAILY niacin 500 mg tablet 500 mg PO DAILY losartan 25 mg tablet 25 mg PO DAILY 90 Days Qty: 90 0RF Eliquis 5 mg tablet 2.5 mg PO BID metoprolol tartrate 100 mg tablet 200 mg PO BID simvastatin 40 mg tablet 40 mg PO DAILY hydrochlorothiazide 12.5 mg capsule 12.5 mg PO DAILY Probable Cause of Probable cause of : Cardiac arrest DS Attestations Time Spent in /Discharge Care*: greater than 30 min Quality - AMI: AMI present?: No Quality - Stroke: CVA present?: No Quality - VTE: VTE present?: No Coding Level of Care Code 11707 Total time (in minutes) for Discharge: 45 Diagnoses Need for comfort care Hypoxic encephalopathy G93.1 Acute hypoxic respiratory failure J96.01 Unresponsiveness R41.89 Septic shock A41.9; R65.21 Lactic acidosis E87.20 Metabolic acidosis E87.20 NSTEMI (non-ST elevated myocardial infarction) I21.4 Acute renal failure, unspecified acute renal failure type N17.9 Acute renal failure type: unspecified Hypernatremia E87.0 Hypokalemia E87.6 Atrial fibrillation with RVR I48.91 Increased anion gap metabolic acidosis E87.29 Aspiration pneumonia of left lower lobe due to vomit J69.0 Aspiration pneumonia type: due to vomit Laterality: left Lung location: lower lobe of lung Collapse of left lung J98.11 Listeria food poisoning A05.8 Diabetic ketoacidosis with coma associated with type 2 diabetes mellitus E11.11 Diabetes mellitus complication detail: with coma Diabetes mellitus type: type 2 Anorexia R63.0 Protein calorie malnutrition E46 Altered mental status, unspecified altered mental status type R41.82 Altered mental status type: unspecified Pneumonia due to COVID-19 virus U07.1; J12.82 Elevated INR R79.1 GI bleed K92.2 Hypophosphatemia E83.39 Staphylococcus aureus pneumonia J15.211
[2023-09-04 00:49] LABS: Fibrinogen Degradation Product <5 mcg/mL (LESS THAN 5)
[2023-09-05 22:14] LABS: UFH High Dose, 100 IU/ML 6 % release; UFH Low Dose, 0.1 IU/ML 3 % release; UFH Low Dose, 0.5 IU/ML 2 % release; UFH SRA Result NEGATIVE (NEGATIVE)
[2023-11-10 10:04] LABS: ABG PH Result 7.59 (7.35-7.45)
== END 2023-08-29 20:15 | disposition expired | DRG 870 ==
LOC: ER 14:19 → ICU 16:18 → CSU 08-29 15:19 → ICU 08-29 15:32
PROVIDERS: Internal Medicine; Internal Medicine Pulmonary Disease; Admitting Provider Family Medicine; Emergency Provider Family Medicine; PCP Registered Nurse; Visit Provider Family Medicine
DX: A41.2 Sepsis due to unspecified staphylococcus (principal); E11.11 Type 2 diabetes mellitus with ketoacidosis with coma; I21.A1 Myocardial infarction type 2; J12.82 Pneumonia due to coronavirus disease 2019; J15.20 Pneumonia due to staphylococcus, unspecified; R65.21 Severe sepsis with septic shock; U07.1 COVID-19; J96.01 Acute respiratory failure with hypoxia; J69.0 Pneumonitis due to inhalation of food and vomit; G93.1 Anoxic brain damage, not elsewhere classified; N17.9 Acute kidney failure, unspecified; E87.0 Hyperosmolality and hypernatremia; J98.19 Other pulmonary collapse; A32.9 Listeriosis, unspecified; E46 Unspecified protein-calorie malnutrition; Z68.1 Body mass index [BMI] 19.9 or less, adult; K92.2 Gastrointestinal hemorrhage, unspecified; Z51.5 Encounter for palliative care; I48.91 Unspecified atrial fibrillation; E86.0 Dehydration; I10 Essential (primary) hypertension; I46.9 Cardiac arrest, cause unspecified; Z88.0 Allergy status to penicillin; Z86.73 Personal history of transient ischemic attack (TIA), and cerebral infarction without residual deficits; E83.39 Other disorders of phosphorus metabolism
CPT/HCPCS: 31500; 31622; 36415; 36416; 36430; 36556; 36592; 36600; 51702; 70450; 71045; 71275; 74177; 80048; 80051; 80053; 80061; 80202; 80503; 81001; 82009; 82274; 82330; 82533; 82550; 82803; 82805; 82962; 83010; 83036; 83605; 83615; 83630; 83690; 83735; 83880; 84100; 84145; 84443; 84484; 85007; 85025; 85362; 85378; 85384; 85610; 85730; 86140; 86900; 87040; 87045; 87070; 87077; 87177; 87186; 87205; 87209; 87427; 87449; 87486; 87493; 87581; 87633; 87804; 89050; 93005; 93306; 94002; 94003; 94799; 96365; 96366; 96367; 96368; 96372; 96375; 96376; 99291; A4222; A4570; C1751; C9113; J0171; J0248; J0283; J1100; J1160; J1200; J1644; J1815; J1940; J2185; J2250; J2270; J3010; J3370; J3430; J3480; J3490; J7030; J7050; P9016; P9046; P9047; Q9967